=== PATIENT | male | born 1945 | race Caucasian/White ===

== ENCOUNTER 2018-01-29 09:45 | Outpatient (REF) | payer OTHER, SELFPAY ==
[2018-01-29 14:29] LABS: Anion Gap 8.3 mmol/L (3-11); BUN 15 mg/dL (7-18); CO2 28.7 mmol/L (21.0-32.0); CREATININE 0.77 mg/dL (0.70-1.30); Calcium 8.6 mg/dL (8.5-10.1); Chloride 103 mmol/L (98-107); Cholesterol 204 mg/dL (50-200); Glucose 95 mg/dL (70-100); HDL Cholesterol 116 mg/dL (40-60); LDL CHOLESTEROL 83 mg/dL (<100); Potassium 4.1 mmol/L (3.5-5.1); Sodium 140 mmol/L (136-145); Triglyceride 25 mg/dL (30-150)
[2018-01-30 09:40] LABS: PSA, Screening 2.9 ng/ml (0-6.5)
[2018-01-30 12:26] LABS: Varicella IgG Antibody Positive
[2018-02-01 13:47] LABS: HSV Type 1 Ab, IgG Positive; HSV Type 2 Ab, IgG Negative
== END 2018-01-29 10:05 ==
LOC: NCHCN 09:45
PROVIDERS: PCP Nurse Practitioner Family; Visit Provider Nurse Practitioner Family
DX: I10 Essential (primary) hypertension (principal); E78.5 Hyperlipidemia, unspecified; Z12.5 Encounter for screening for malignant neoplasm of prostate; Z80.42 Family history of malignant neoplasm of prostate; Z11.59 Encounter for screening for other viral diseases
CPT/HCPCS: 80048; 80061; 83721; 84153; 86787; 86695; 86696

== ENCOUNTER 2018-11-25 12:10 | Outpatient (REF) | payer OTHER, SELFPAY ==
--- NOTE | 2018-11-25 | SKI_PTH ---
PATIENT: Alpesh Clay JR LOC: [facility] U#:[id number] AGE/SX: 73/M ROOM: RE11/25/[address]: Kalyan Espinosa DO : 1945 BED: DIS: 11/25/2018 SPEC #: [id number] RECD: 11/26/18 11:48 STATUS: FRAN REQ #: [id number] AISHA: 11/25/18 00:[address]: Kalyan Espinosa DEPT: Surgical Specimen RECD BY: Diandra De La Garza ENTERED: 11/26/18 11:49 SP TYPE: OBIE MCCULLOUGH DR: Dannielle Lee Tissues: 1 - SKIN BIOPSY(SHAVE/PUNCH) Procedures: SKIN LEVEL 4 Comments: [id number]
== END 2018-11-25 12:30 ==
LOC: LBN 12:10
PROVIDERS: PCP Nurse Practitioner Family; Visit Provider Otolaryngology Otolaryngology/Facial Plastic Surgery
DX: L82.0 Inflamed seborrheic keratosis (principal)
CPT/HCPCS: 88305

== ENCOUNTER 2018-12-02 08:16 | Outpatient (REF) | payer OTHER, SELFPAY ==
[2018-12-03 09:40] LABS: PSA, Screening 1.5 ng/ml (0-6.5)
== END 2018-12-02 08:36 ==
LOC: NCHCN 08:16
PROVIDERS: PCP Nurse Practitioner Family; Visit Provider Nurse Practitioner Family
DX: Z12.5 Encounter for screening for malignant neoplasm of prostate (principal); L64.9 Androgenic alopecia, unspecified
CPT/HCPCS: 84153

== ENCOUNTER 2019-03-03 11:08 | Outpatient (REF) | payer OTHER, SELFPAY ==
[2019-03-03 18:57] LABS: Anion Gap 8.8 mmol/L (3-11); BUN 15 mg/dL (7-18); CO2 29.2 mmol/L (21.0-32.0); CREATININE 0.83 mg/dL (0.70-1.30); Calcium 8.9 mg/dL (8.5-10.1); Chloride 102 mmol/L (98-107); Glucose 85 mg/dL (70-100); Potassium 4.2 mmol/L (3.5-5.1); Sodium 140 mmol/L (136-145)
== END 2019-03-03 11:28 ==
LOC: NCHCO 11:08
PROVIDERS: PCP Nurse Practitioner Family; Visit Provider Nurse Practitioner Family
DX: I10 Essential (primary) hypertension (principal)
CPT/HCPCS: 80048

== ENCOUNTER 2021-08-11 18:15 | Outpatient (REF) | payer OTHER, SELFPAY ==
[2021-08-11 19:21] LABS: HCT 45.1 % (40.0-50.0); MCH 38.3 pg (27.0-33.0); MCHC 35.5 % (32.0-36.0); MCV 107.9 fL (80-95); MPV 9.1 fL (8.0-11.0); Platelet Count 158 10^3/uL (130-400); RBC 4.18 10^6/uL (4.36-5.78); RDW 13.5 % (11.8-14.1); RDW-SD 53.1 fL
[2021-08-11 19:37] LABS: ALT 82 U/L (16-63); AST 66 U/L (15-37); Albumin 4.2 g/dL (3.4-5.0); Alkaline Phosphatase 80 U/L (46-116); Anion Gap 10.3 mmol/L (3-11); BUN 16 mg/dL (7-18); Bilirubin, Total 0.9 mg/dL (0.2-1.0); CO2 27.7 mmol/L (21.0-32.0); CREATININE 0.9 mg/dL (0.70-1.30); Calculated LDL 112 mg/dL (<100); Chloride 102 mmol/L (98-107); Cholesterol 222 mg/dL (<200); Glucose 101 mg/dL (74-106); HDL Cholesterol 98 mg/dL (40-60); Potassium 3.8 mmol/L (3.5-5.1); Sodium 140 mmol/L (136-145); Total Protein 7.8 g/dL (6.4-8.2); Triglyceride 60 mg/dL (<150)
[2021-08-12 18:58] LABS: PSA, Screening 0.8 ng/mL (0.0-6.5)
== END 2021-08-11 18:16 | disposition home or self-care (01) ==
LOC: NCHCN 18:15
PROVIDERS: PCP Nurse Practitioner Family; Visit Provider Nurse Practitioner Family
DX: I10 Essential (primary) hypertension (principal); Z12.5 Encounter for screening for malignant neoplasm of prostate
CPT/HCPCS: 80053; 80061; 84153; 85027

== ENCOUNTER 2022-01-02 21:36 | Emergency (ER) | payer OTHER, SELFPAY ==
[2022-01-02 21:37] VITALS: BP 163/98; PULSE 72; RESP 18; TEMP 36.7; O2SAT 91
[2022-01-02] MEDS: Normal Saline 1,000 ML 1000 ML IV (22:01)
[2022-01-02 22:03] LABS: Source Nasal/Nares
[2022-01-02 22:08] LABS: Abs Immature Grans 0.01 10^3/uL (0.0-0.06); Absolute Basophil Count 0.08 10^3/uL (0.0-0.2); Absolute Eosinophil Count 0.46 10^3/uL (0.0-0.7); Absolute Lymphocyte Count 1.14 10^3/uL (1.2-3.4); Absolute Monocyte Count 0.74 10^3/uL (0.1-0.8); Absolute Neutrophil Count 3.98 10^3/uL (1.2-6.7); Basophils % 1.2; Eosinophils % 7.2; HCT 43.8 % (40.0-50.0); HGB 15.4 g/dL (13.5-17.5); Immature Grans % 0.2; Lymphocytes % 17.8; MCHC 35.2 % (32.0-36.0); MCV 105 fL (80-95); MPV 8.6 fL (8.0-11.0); Monocytes % 11.5; Neutrophils % 62.1; Platelet Count 215 10^3/uL (130-400); RBC 4.16 10^6/uL (4.36-5.78); RDW 14.1 % (11.8-14.1); RDW-SD 54.8 fL; WBC 6.41 10^3/uL (4.4-10.8)
--- NOTE | 2022-01-02 22:15 | W.ED.GENAD ---
Discharge Plan Disposition Patient Disposition: STILL A PATIENT Condition: Stable Discharge Details Clinical Impression: Diarrhea Primary Care Provider: Dannielle Lee ED Provider: Kevin Pham Home Meds and New Rx's Prescriptions: Continued finasteride [Propecia] 1 mg tablet 1 mg PO DAILY lisinopril 20 mg tablet 40 mg PO DAILY clonazepam [Klonopin] 0.5 mg tablet 0.5 mg PO DAILY labetalol 100 mg tablet 100 mg PO BID sildenafil [Viagra] 100 mg tablet 100 mg PO DAILY PRN Rx Instructions: administer 30 minutes to 4 hours before activity amlodipine 5 mg tablet 5 tab PO DAILY Label Comments: TAKE 1 TABLET BY MOUTH EVERY DAY Discharge Instructions Instructions: Acute Diarrhea (ED) Additional Instructions: Please follow-up for outpatient lower extremity ultrasound tomorrow. See enclosed paperword if diarrhea continues follow up with your primary care provider return to the emergency department for severe pain, difficulty breathing or if you feel more ill Medical Decision Making <Ever Stanton MD - Last Filed: 01/02/22 22:47> 76-year-old male states he woke this morning feeling normal, ate breakfast and then developed fairly rapid onset of loose and watery stool associate with bowel cramping. He went on to work outside in the 90 degree heat of the day. This evening he had recurrent urge to defecate and had recurrent large-volume watery diarrhea. With this he felt weak, became diaphoretic, and EMS was called. There was no syncope, no chest pain and patient denies abdominal pain or fever. He arrives to the ER improved. He has initial nurse that was 91% on room air which corrects to 93 to 94% with deep breathing. He has no cough or respiratory history. Patient was interviewed independently and with the significant other after asking the patient's permission. She states that he has had ongoing daily use of alcohol and poor compliance with his medications. Additionally they note the left leg has been edematous over 2 months since a long trip to [facility] [place] [employer] expedition Differential diagnosis includes volume depletion, gastroenteritis, viral syndrome including COVID-19, & must exclude other process such as diverticulitis. Patient IV access established, screening labs obtained and he is given parenteral fluids. Patient referred for CT imaging. He has had some mild hypoxia as stated above and will include chest images. Given the patient's complaint of left lower extremity edema that began after driving to call back for a fishing trip, will obtain outpatient follow-up ultrasound to rule out DVT. Patient to be signed out to Dr. Pham pending further diagnostics. Lab Data Lab results reviewed: Yes I reviewed the patient's lab results. Lab results narrative: Laboratory Results - last 24 hr 01/02/22 01/02/22 01/02/22 21:55 21:55 21:55 WBC 6.41 RBC 4.16 L Hgb 15.4 Hct 43.8 MCV 105 H MCH 37.0 H MCHC 35.2 RDW 14.1 Plt Count 215 MPV 8.6 Immature Gran % 0.2 Neutrophils % 62.1 Lymphocytes % 17.8 Monocytes % 11.5 Eosinophils % 7.2 Basophils % 1.2 Nucleated RBC % 0.0 Absolute Neutrophils 3.98 Absolute Lymphocytes 1.14 L Absolute Monocytes 0.74 Absolute Eosinophils 0.46 Absolute Basophils 0.08 Sodium 138 Potassium 3.4 L Chloride 102 Carbon Dioxide 24.5 Anion Gap 11.5 H BUN 12 Creatinine 0.8 Estimated GFR/1.73 m2 >= 60.00 Glucose 98 Calcium 8.9 Magnesium 1.8 Total Bilirubin 0.7 AST 49 H ALT 52 Alkaline Phosphatase 85 Total Protein 7.9 Albumin 3.8 COVID-19 Source Nasal/Nares SARS-CoV-2 (PCR) Negative <Kevin Pham MD - Last Filed: 01/03/22 00:53> 76-year-old male states he woke this morning feeling normal, ate breakfast and then developed fairly rapid onset of loose and watery stool associate with bowel cramping. He went on to work outside in the 90 degree heat of the day. This evening he had recurrent urge to defecate and had recurrent large-volume watery diarrhea. With this he felt weak, became diaphoretic, and EMS was called. There was no syncope, no chest pain and patient denies abdominal pain or fever. He arrives to the ER improved. He has initial nurse that was 91% on room air which corrects to 93 to 94% with deep breathing. He has no cough or respiratory history. Patient was interviewed independently and with the significant other after asking the patient's permission. She states that he has had ongoing daily use of alcohol and poor compliance with his medications. Additionally they note the left leg has been edematous over 2 months since a long trip to [facility] for fishing expedition Differential diagnosis includes volume depletion, gastroenteritis, viral syndrome including COVID-19, & must exclude other process such as diverticulitis. Patient IV access established, screening labs obtained and he is given parenteral fluids. Patient referred for CT imaging. He has had some mild hypoxia as stated above and will include chest images. Given the patient's complaint of left lower extremity edema that began after driving to call back for a fishing trip, will obtain outpatient follow-up ultrasound to rule out DVT. Patient to be signed out to Dr. Pham pending further diagnostics. pt stable, ct shows subacute left rib fracture and states he did have a mechanical fall from standing over a week ago, no recent trauma, no ptx. Has atelectasis, denies any fever or cough so doubt pneumonia. CT abd/pelvis unremarkable, has thickened bladder wall but denies urinary symptoms. He feels well and is 95% on room air when talking to him and speaking in full sentences. Suspect his diarrhea is food related or viral in nature and caused some dehydration vs vasovagal episode. He will f/u with his pcp and also have an u/s of his left leg which has mild swelling of the lower leg, no erythema or infectious findings on exam. Return precautions given Imaging Data Radiologic Study: Attestation: I personally reviewed and interpreted this imaging study as follows: Imaging: CT Scan Radiologist's impression: IMPRESSION: 1. Mild displaced acute-subacute left 11th and 12th rib fractures. No pneumothorax 2. Probable mild atelectasis in the lower lobes, right greater than left, small infiltrates not excluded. IMPRESSION: 1. Mild bladder wall thickening without stranding. Nonspecific, cystitis not excluded. 2. Otherwise, no acute abnormality HPI <Ever Stanton MD - Last Filed: 01/02/22 22:47> General Mode of arrival: EMS. Date/Time Provider Initiated Documentation: 01/02/22 22:15. Limitations to Documentation: no limitations. Information obtained by: patient and EMS. History of Present Illness 76 year old M presents to the emergency department with the chief complaint of Diarrhea today and lightheadedness at home, described as moderate, and is localized to the abdomen. Patient reports no radiation. Patient started experiencing this hour(s) and it has been intermittent. No relieving factors improve symptom(s), No exacerbating factors reported . Patient notes diaphoresis, loss of appetite and weakness; denies confusion, chest pain and syncope. Patient did receive the following treatments prior to arrival, none Related Data Home Medications Medication Instructions Recorded Confirmed clonazepam 0.5 mg tablet (Klonopin) 0.5 mg PO DAILY 06/23/21 finasteride 1 mg tablet (Propecia) 1 mg PO DAILY 06/23/21 01/02/22 labetalol 100 mg tablet 100 mg PO BID 06/23/21 lisinopril 20 mg tablet 40 mg PO DAILY 06/23/21 01/02/22 sildenafil 100 mg tablet (Viagra) 100 mg PO DAILY PRN 06/23/21 amlodipine 5 mg tablet 5 tab PO DAILY 01/02/22 01/02/22 Allergies Allergy/AdvReac Type Severity Reaction Status Date / Time No Known Allergies Allergy Verified 01/02/22 21:41 General Stated Complaint: Abd Prob SANTINO: 3 Review of Systems <Ever Stanton MD - Last Filed: 01/02/22 22:47> Narrative: No headache, chest pain, palpitations. No syncope. No abdominal pain or fever. 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 Pleasant, well groomed, interactive. HEAD: Normocephalic, atraumatic ENT: Mucous membranes moist, oropharynx unremarkable, External ear exam unremarkable EYES: PERRL, EOMI NECK: Full ROM, no LATRICIA, no menigismus CHEST/RESP: Nontender, clear to auscultation bilateral, no wheeze/rhonchi/rales CARDIOVASCULAR: RRR, no murmur, rub az. 2+ Rad pulse bilateral ABDOMEN: Soft, nontender, no mass. + Increased bowel sounds EXT: Full ROM, left lower extremity 1+ edema. Neuro: Grossly normal neurologic exam, conversant, interactive. Psych: Speech fluent, thoughts congruent, affect normal Course <Ever Stanton MD - Last Filed: 01/02/22 22:47> Vital Signs Vital signs: Vital Signs Temperature 36.7 C 01/02/22 21:37 Pulse 72 01/02/22 21:37 Respiratory Rate 18 01/02/22 21:37 Blood Pressure 163/98 H 01/02/22 21:37 Pulse Oximetry 91 L 01/02/22 21:37 Temperature 36.7 C 01/02/22 21:37 Temperature Source Oral 01/02/22 21:37 Pulse 72 01/02/22 21:37 Respiratory Rate 18 01/02/22 21:37 Respiratory Effort Non-Labored 01/02/22 21:43 Blood Pressure 163/98 H 01/02/22 21:37 Pulse Oximetry 91 L 01/02/22 21:37 Pain Level 0 01/02/22 21:37 Lab/Test Results Lab/Test Results: Laboratory Tests Range/Units 01/02/22 01/02/22 21:55 21:55 WBC (4.4-10.8) 10^3/uL 6.41 RBC (4.36-5.78) 10^6/uL 4.16 L Hgb (13.5-17.5) g/dL 15.4 Hct (40.0-50.0) % 43.8 MCV (80-95) fL 105 H MCH (27.0-33.0) pg 37.0 H MCHC (32.0-36.0) % 35.2 RDW (11.8-14.1) % 14.1 Plt Count (130-400) 10^3/uL 215 MPV (8.0-11.0) fL 8.6 Immature Gran % 0.2 Neutrophils % 62.1 Lymphocytes % 17.8 Monocytes % 11.5 Eosinophils % 7.2 Basophils % 1.2 Nucleated RBC % (0.0-0.3) % 0.0 Absolute Neutrophils (1.2-6.7) 10^3/uL 3.98 Absolute Lymphocytes (1.2-3.4) 10^3/uL 1.14 L Absolute Monocytes (0.1-0.8) 10^3/uL 0.74 Absolute Eosinophils (0.0-0.7) 10^3/uL 0.46 Absolute Basophils (0.0-0.2) 10^3/uL 0.08 COVID-19 Source Nasal/Nares Sign Out <Ever Stanton MD - Last Filed: 01/02/22 22:47> Sign Out Data: Sign Out Comment: follow up ct Last updated by Ever Stanton MD at 01/02/22 22:54 PAWSS <Ever Stanton MD - Last Filed: 01/02/22 22:47> Have you Been Recently Intoxicated or Drunk Within the Last 30 days?: No Have you Ever Experienced Previous Episodes of Alcohol Withdrawal?: No Have you ever Experienced Withdrawal Seizures?: No Have you ever Experienced Delirium Tremens(DT)s?: No Have you ever undergone Alcohol Rehabilitation Treatment (i.e, inpt ot outpatient treatment programs)?: No Have you ever Experienced Blackouts?: No Have you ever Combined Alcohol with other Downers within the last 90 days?: No Have you ever Combined Alcohol with any other Substance of Abuse during the last 90 days?: No Positive Blood Alcohol level on Presentation? [PCS.BAL]: No Evidence of Increased Autonomic Activity (i.e. HR>120, tremor, sweating, agitation, nausea)?: No Result: 0 <Kevin Pham MD - Last Filed: 01/03/22 00:53> Result: 0
[2022-01-02 22:23] LABS: ALT 52 U/L (16-63); AST 49 U/L (15-37); Albumin 3.8 g/dL (3.4-5.0); Alkaline Phosphatase 85 U/L (46-116); Anion Gap 11.5 mmol/L (3-11); BUN 12 mg/dL (7-18); Bilirubin, Total 0.7 mg/dL (0.2-1.0); CO2 24.5 mmol/L (21.0-32.0); CREATININE 0.8 mg/dL (0.70-1.30); Calcium 8.9 mg/dL (8.5-10.1); Chloride 102 mmol/L (98-107); Glucose 98 mg/dL (74-106); Magnesium 1.8 mg/dL (1.8-2.4); Potassium 3.4 mmol/L (3.5-5.1); Sodium 138 mmol/L (136-145); Total Protein 7.9 g/dL (6.4-8.2)
--- NOTE | 2022-01-02 22:30 | DI.CT_ITS ---
Exam(s) CT CHEST PE ABD PELVIS W EXAM: CT CHEST PE ABD PELVIS W CLINICAL HISTORY: Lower abd pain, diarrhea. Unexplained mild hypoxia. TECHNIQUE: Imaging Protocol: Axial computed tomography images with coronal and sagittal reformatted images were created and reviewed CONTRAST MATERIAL: Intravenous: Omnipaque 350 Contrast volume:100 ml Oral: / no COMPARISON: CR CHEST 2 VIEWS PA,LAT from 05/29/2017 FINDINGS: CHEST: Tracheobronchial tree: Patent where visualized. Mediastinum and Irma: No dominant adenopathy or fluid collection. Pulmonary parenchyma: Dependent changes. Mild respiratory motion. No consolidation or dominant reji urable mass. Pleura: No effusion or pneumothorax. Lymph nodes: Within normal limits. Aorta: Thoracic portion non-dilated. Heart: Mildly enlarged. Coronary artery calcifications are present. No pericardial effusion. Bones: Subacute fractures left 11th and 12th ribs. Spine unremarkable for age. No lytic or blastic lesions. ABDOMEN: Liver: Normal density. No measurable mass. Gallbladder and biliary tract: No radiodense calculus or dilation. Pancreas: Normal density, no abnormal calcifications or inflammatory process. Spleen: Normal. Kidneys: Normal size, contour and axis. No radiodense stones or obstructive uropathy. Few small deya l cysts are noted. No masses seen. Adrenal glands: No masses seen. Aorta: Abdominal portion non-dilated. Mild atherosclerotic changes. Lymph nodes: Within normal limits. Soft tissues: Unremarkable. PELVIS: Bladder: Symmetric distention, [id number] gross wall thickening. Bowel: no obstruction or bowel wall thickening. Colon nearly completely collapsed. No inflammatory c hanges Peritoneal cavity: No ascites, collection or mesenteric inflammatory response. Bones: Right hip prosthesis creates mild artifact. Degenerative disc changes greatest at L5-S1. Reproductive organs: Within normal limits. Soft tissues: Fatty containing right inguinal hernia. IMPRESSION: No acute abnormality in the chest abdomen or pelvis.. Mild diffuse thickening of the wall of the urinary bladder is noted which could indicate cystitis. T he prostate appears normal in size. RADIATION DOSE DELIVERED: 1,499.88mGy.cm Total DLP DATA REPOSITORY: All CT scans at this facility are submitted to the National Radiology Data Registry (NRDR) Dose Index Registry (DIR) with the [employer] (ACR). RADIATION OPTIMIZATION: All CT scans at this facility use at least one of these dose optimization te chniques: automated exposure control; mA and/or kV adjustment per patient size (includes targeted exa ms where dose is matched to clinical indication); or iterative reconstruction.
[2022-01-02 22:39] LABS: COVID-19 PCR Negative (Negative)
[2022-01-02] MEDS: Omnipaque 350 MG/ML 100 ML BTL IJ (23:04)
[2022-01-02] MEDS: Normal Saline Flush 10 ML SYR IVP (23:04)
--- NOTE | 2022-01-03 00:36 | NUR.NOTE ---
Ultrasound req faxed to radiology for L LE ultrasound, left lower extremity edema. Patient given a copy of requistion and advised to call the number highlighted to make an appointment.Nursing Note:
--- NOTE | 2022-01-03 00:39 | DI.VRAD_ITS ---
PROCEDURE INFORMATION: Exam: CTA Chest With Contrast Exam date and time: 01/02/2022 11:04 PM Age: 76 years old Clinical indication: Prior surgery; Surgery date: 6+ months; Surgery type: Hip; Patient HX: Lower abd pain, diarrhea. Unexplained mild hypoxia TECHNIQUE: Imaging protocol: Computed tomographic angiography of the chest with contrast. 3D rendering (Not supervised by radiologist): MIP and/or 3D reconstructed images were created by the technologist. Radiation optimization: All CT scans at this facility use at least one of these dose optimization techniques: automated exposure control; mA and/or kV adjustment per patient size (includes targeted exams where dose is matched to clinical indication); or iterative reconstruction. Contrast material: OMNIPAQUE 350; Contrast volume: 100 ml; Contrast route: INTRAVENOUS (IV); COMPARISON: CR CHEST 2 VIEWS PA,LAT 05/29/2017 10:52 AM FINDINGS: Pulmonary arteries: No pulmonary emboli. Aorta: No aortic dissection. Lungs: Probable mild atelectasis in the lower lobes, right greater than left, small infiltrates not excluded. Pleural spaces: No pneumothorax. No pleural effusion. Heart: No pericardial effusion. Lymph nodes: No enlarged lymph nodes. Bones/joints: Mild displaced acute-subacute left 11th and 12th rib fractures. Soft tissues: Unremarkable. IMPRESSION: 1. Mild displaced acute-subacute left 11th and 12th rib fractures. No pneumothorax 2. Probable mild atelectasis in the lower lobes, right greater than left, small infiltrates not excluded. PROCEDURE INFORMATION: Exam: CT Abdomen And Pelvis With Contrast Exam date and time: 01/02/2022 11:04 PM Age: 76 years old Clinical indication: Prior surgery; Surgery date: 6+ months; Surgery type: Hip; Patient HX: Lower abd pain, diarrhea. Unexplained mild hypoxia TECHNIQUE: Imaging protocol: Computed tomography of the abdomen and pelvis with contrast. Radiation optimization: All CT scans at this facility use at least one of these dose optimization techniques: automated exposure control; mA and/or kV adjustment per patient size (includes targeted exams where dose is matched to clinical indication); or iterative reconstruction. Contrast material: OMNIPAQUE 350; Contrast volume: 100 ml; Contrast route: INTRAVENOUS (IV); COMPARISON: No relevant prior studies available. FINDINGS: Liver: No acute abnormality. Gallbladder and bile ducts: No stones. No ductal dilation. Pancreas: No ductal dilation. Spleen: No acute abnormality. Adrenal glands: Normal. No mass. Kidneys and ureters: No hydronephrosis. Renal cysts measuring up to 2 cm. Stomach and bowel: No bowel obstruction. Appendix: No evidence of appendicitis. Intraperitoneal space: No free air. No significant fluid collection. Vasculature: No abdominal aortic aneurysm. Vascular calcification Lymph nodes: No enlarged lymph nodes. Urinary bladder: Mild bladder wall thickening without stranding. Reproductive: No acute findings. Bones/joints: No acute fracture in the abdomen and pelvis. Right hip arthroplasty Soft tissues: No acute findings. IMPRESSION: 1. Mild bladder wall thickening without stranding. Nonspecific, cystitis not excluded. 2. Otherwise, no acute abnormality Dictated and Authenticated by: Alpesh Haywood MD. Ordering:TIO Curtis MD
[2022-01-03 01:13] VITALS: BP 162/92; PULSE 79; RESP 18; O2SAT 95
== END 2022-01-03 01:16 | disposition still patient (30) ==
PROVIDERS: Emergency Medicine; Emergency Provider Emergency Medicine; PCP Nurse Practitioner Family
DX: R19.7 Diarrhea, unspecified (principal); R09.02 Hypoxemia; I10 Essential (primary) hypertension; R60.0 Localized edema; S22.42XA Multiple fractures of ribs, left side, initial encounter for closed fracture; Z20.822 Contact with and (suspected) exposure to COVID-19; W19.XXXA Unspecified fall, initial encounter
CPT/HCPCS: 71275; 74177; 80053; 87635; 96360; 99284; 99285; 83735; 85025; J3490

== ENCOUNTER → 2022-01-05 00:41 | Outpatient (CLI) | payer OTHER, SELFPAY ==
--- NOTE | 2022-01-05 | DI.US_ITS ---
Exam(s) US LOWER EXTREMITY VENOUS LT EXAM: US LOWER EXTREMITY VENOUS LT CLINICAL HISTORY: EDEMA, ? DVT, R60.9 TECHNIQUE: Grayscale, color, and doppler imaging of the deep venous system of the left lower extremi ty was performed. COMPARISON: No exams were available for comparison FINDINGS: There is no evidence of intraluminal thrombus and there is normal compression and augmentation demons trated within the common femoral vein, femoral vein, and popliteal vein. In the ipsilateral calf the interrogated veins also exhibit normal compression/ augmentation properti es. The ipsilateral saphenofemoral junction is patent. IMPRESSION: 1. No evidence of DVT in the left lower extremity. DATA REPOSITORY:
== END ==
PROVIDERS: PCP Nurse Practitioner Family; Visit Provider Emergency Medicine
DX: R60.9 Edema, unspecified (principal)
CPT/HCPCS: 93971

== ENCOUNTER → 2022-03-30 10:46 | Outpatient (BNVA) | payer OTHER, SELFPAY | PROVIDERS: PCP Nurse Practitioner Family; Referring Provider Nurse Practitioner Family; Visit Provider Surgery | DX: Z12.11 Encounter for screening for malignant neoplasm of colon (principal); R01.1 Cardiac murmur, unspecified | CPT/HCPCS: 99243 ==

== ENCOUNTER 2022-05-23 01:52 | Outpatient (CLI) | payer OTHER, SELFPAY ==
--- NOTE | 2022-05-23 07:00 | DI.US_ITS ---
APPROVED REPORT EXAM: Comprehensive 2D, Doppler, and color-flow Echocardiogram Patient Location: [facility] Last Maker: Ce Shipley RDCS (AE) Indications: Heart murmur, Vasovagal episode, HTN Pre op Other Information Study Quality: Adequate Conclusion Normal left ventricular wall thickness and chamber size. Estimated ejection fraction is 60 to 65%. Wall motion is normal Normal right ventricular size and systolic function Both atria are normal in size Aortic valve is trileaflet and mildly calcified. There is no aortic stenosis. There is trace regurg itation Structurally normal mitral valve with mild to moderate regurgitation Normal tricuspid valve with trace regurgitation. Estimated right ventricular systolic pressure is 16 mmHg Dilated ascending aorta measuring 3.97 cm Wall motion Left Ventricle The left ventricle is normal size. The left ventricular systolic function is normal. The left ventric ular ejection fraction is within the normal range. There is normal left ventricular wall thickness. T here is normal LV segmental wall motion. There is no ventricular septal defect visualized. LVEF is 63 %. Right Ventricle The right ventricle is normal size. The right ventricular systolic function is normal. The RVSP is 15 .9mmHg. Atria The left atrium size is normal. The right atrium size is normal. The interatrial septum is intact wit h no evidence for an atrial septal defect. Aortic Valve Aortic valve is mildly calcified. Aortic valve is trileaflet. There is no aortic valvular stenosis. Trace aortic regurgitation. Mitral Valve The mitral valve is normal in structure. No evidence of mitral valve stenosis. Mild to moderate berenice l regurgitation. Tricuspid Valve The tricuspid valve is normal in structure. There is no tricuspid valve stenosis. Trace tricuspid reg urgitation. Pulmonic Valve The pulmonary valve is normal in structure. There is no pulmonic valvular stenosis. Trace pulmonic re gurgitation. Great Vessels The aortic root is normal in size. The ascending aorta is moderately dilated.3.97 cm Aortic arch is n ormal in caliber. IVC is normal in size and collapses >50% with inspiration. Pericardium There is no pericardial effusion. 2D Dimensions IVSD d PLAX 1.13 cm M: 0.6-1.2 LV Vol A2C d MOD 95.0 mL LVPW d PLAX 1.14 cm M: 0.6 - 1.2 LV Vol A4C d MOD 119.1 mL LVID d PLAX 4.51 cm M: 4.2 - 5.8 LA vol/ BSA A2C s A-L 24.8 mL/m2 LVDs 3.10 cm M: 2.5 - 4.0 LA vol/ BSA A4C s A-L 18.6 mL/m2 Ao Root d 3.04 cm M: 3.1 - 3.7 LA Vol/ BSA Biplane s A-L 22.4 mL/m2 RA Area A4C 13.96 cm2 LA Area A4C s MOD 15.29 cm2 RA Vol/ BSA A4C s A-L 15.9 mL/m2 LA Area A2C s MOD 18.38 cm2 Ao Asc Diam d 3.97 cm M: 2.6 - 3.4 LV EF A4C MOD 62.7 % LV EF Teichholz 58.2 % LV EF A2C MOD 63.0 % LVEF (Ignacio's) 63.61 % M: 52 - 72 LV EF Biplane MOD 63.6 % LV Volume 80.92 mL M: 62 - 150 SV 69.12 mL LV Volume Index 39.47 mL/m2 M: 34 - 74 SV Index 33.83 mL/m2 LV Vol Biplane MOD 108.7 mL FS 30.55 % M-Mode TAPSE 2.47 cm (M/F) >1.7 LV Diastology MV E' medial 0.081 (>0.07 m/s) E/A Ratio 0.8 LV E/e MED 7.40 (<14) MV E Vmax 0.60 (0.4-1.3 m/s) MV E' lateral 0.120 (>0.1 m/s) MV A Vmax 0.75 (0.4-1.3 m/s) LV E/e LAT 4.95 (<14) MV E/A Ratio 0.75 MV E/E' medial 7.41 MV E/E' lateral 4.99 Aortic Valve LVOT Area 3.06 cm2 AoV Area Vmax 2.75 cm2 LVOT Vmax 1.33 m/s AoV Area/ BSA (Vmax) 1.34 cm2/m2 LVOT Mean Daryl. 0.84 m/s JONATHAN Mean Daryl. 2.54 cm2 LVOT Peak Grad 7.1 mmHg JONATHAN Mean Daryl. Index 1.24 cm2/m2 LVOT Mean Grad 3.4 mmHg LVOT VTI 0.229 m LVOT Diam s 1.95 cm AoV Vmax 1.48 m/s Velocity Ratio 0.90 AoV Mean Daryl. 1.01 m/s AoV Peak Grad 8.7 mmHg LVOT SV 69.86 mL AoV Mean Grad 4.5 mmHg AoV VTI 0.252 m AoV Area VTI 2.77 cm2 AoV Area/ BSA (VTI) 1.36 cm/m2 Mitral Valve MV DT 250 (160-240 msec) MR Vmax 5.21 m/s MV PHT 73 msec MR VTI 1.220 m MV Area PHT 3.03 cm2 MR Peak Grad 108.8 mmHg MV VTI 0.205 m MR Mean Grad 79.5 mmHg MV VTI Annulus 0.191 m MV Area VTI 3.19 (4.0-6.0 cm2) Pulmonary Valve PV Vmax 1.16 (0.5-1.5 m/s) RVOT Peak Gr. 1.48 mmHg PV Peak Grad 5.4 mmHg RVOT Mean Gr. 0.80 mmHg PV Mean Grad 2.7 mmHg RVOT VTI 0.130 m PV VTI 0.206 m RVOT Vmax 0.61 m/s Tricuspid Valve TR Peak Grad 12.9 mmHg TR Vmax 1.80 m/s RA Pressure 3.00 mmHg RVSP (TR) 15.9 mmHg
== END 2022-05-23 02:12 ==
LOC: DI 01:53
PROVIDERS: PCP Nurse Practitioner Family; Visit Provider Surgery
DX: E78.5 Hyperlipidemia, unspecified (principal); I10 Essential (primary) hypertension; R01.1 Cardiac murmur, unspecified; R55 Syncope and collapse; R79.89 Other specified abnormal findings of blood chemistry
CPT/HCPCS: 93306

== ENCOUNTER 2022-07-07 12:54 | Outpatient (REF) | payer OTHER, SELFPAY ==
[2022-07-07 15:29] LABS: Abs Immature Grans 0.03 10^3/uL (0.0-0.06); Absolute Basophil Count 0.04 10^3/uL (0.0-0.2); Absolute Eosinophil Count 0.15 10^3/uL (0.0-0.7); Absolute Lymphocyte Count 0.77 10^3/uL (1.2-3.4); Absolute Monocyte Count 0.78 10^3/uL (0.1-0.8); Absolute Neutrophil Count 4.17 10^3/uL (1.2-6.7); Basophils % 0.7; Eosinophils % 2.5; HCT 39.8 % (40.0-50.0); HGB 14.6 g/dL (13.5-17.5); Immature Grans % 0.5; MCH 37.4 pg (27.0-33.0); MCHC 36.7 % (32.0-36.0); MCV 102 fL (80-95); Monocytes % 13.1; Neutrophils % 70.2; Platelet Count 208 10^3/uL (130-400); RDW 12.9 % (11.8-14.1); RDW-SD 48.2 fL; WBC 5.94 10^3/uL (4.4-10.8)
[2022-07-07 15:44] LABS: ALT 91 U/L (16-63); AST 88 U/L (15-37); Albumin 3.7 g/dL (3.4-5.0); Alkaline Phosphatase 98 U/L (46-116); Anion Gap 10.6 mmol/L (3-11); BUN 10 mg/dL (7-18); Bilirubin, Total 0.8 mg/dL (0.2-1.0); CO2 25.4 mmol/L (21.0-32.0); CREATININE 1.2 mg/dL (0.70-1.30); Chloride 91 mmol/L (98-107); Estimated GFR 62.67 (mL/min/1.73m2); Glucose 92 mg/dL (74-106); Potassium 4.9 mmol/L (3.5-5.1); Sodium 127 mmol/L (136-145); Total Protein 7.4 g/dL (6.4-8.2)
== END 2022-07-07 12:55 | disposition home or self-care (01) ==
LOC: NCHCN 12:54
PROVIDERS: PCP Nurse Practitioner Family; Visit Provider Nurse Practitioner Family
DX: R53.83 Other fatigue (principal); R79.89 Other specified abnormal findings of blood chemistry; K52.9 Noninfective gastroenteritis and colitis, unspecified
CPT/HCPCS: 80053; 85025

== ENCOUNTER 2022-07-11 02:38 | Inpatient (IN) | payer OTHER, SELFPAY ==
[2022-07-11] VITALS (74 sets, daily range): BP systolic 92–131; BP diastolic 58–114; PULSE 69–99; RESP 13–24; TEMP 36.4; O2SAT 90–96
--- NOTE | 2022-07-11 | DI.US_ITS ---
Exam(s) US ABDOMEN LIMITED EXAM: US ABDOMEN LIMITED CLINICAL HISTORY: distended gallbladder on CT TECHNIQUE: Ultrasound abdomen performed using standard protocol. COMPARISON: CT CT CHEST PE ABD PELVIS W from 07/11/2022 FINDINGS: There is no ascites evident. LIVER: Liver is hyperechoic indicating steatosis. Liver size is slightly prominent. No discrete foc al hepatic lesions identified. GALLBLADDER/BILIARY: There are no gallstones. No gallbladder wall edema nor pericholecystic fluid. The common hepatic duct isnot dilated, measuring 4-5mm at the level of jamie hepatis. PANCREAS: There is no evidence of pancreatic mass nor dilatation of the pancreatic duct. RIGHT KIDNEY:No evidence of solid mass, calculus, nor hydronephrosis. Anterior cyst noted measuring 2 .7 x 2.4 cm. IMPRESSION: 1. No evidence of cholelithiasis nor dilatation of the biliary tree. 2. Hepatic steatosis. Correlation appropriate hepatic blood work recommended. 3. Benign right kidney cyst. No other significant focal right upper quadrant ultrasound findings and there is no ascites evident. DATA REPOSITORY:
--- NOTE | 2022-07-11 02:30 | RT.EKG_ITS ---
APPROVED REPORT Exam: Resting ECG Reason for Exam: gi bleed Patient Location: E HR:72 bpm ECG Measurements Heart Rate 72 AXIS UT 95 P 0 QRSd 88 QRS 26 QT 418 T 64 QTc 457 Conclusion Sinus rhythm...normal P axis, V-rate 60- 99 Nonspecific T abnormalities, anterior leads...T <-0.10mV, V2-V4
--- NOTE | 2022-07-11 02:45 | DI.CT_ITS ---
Exam(s) CT CHEST PE ABD PELVIS W EXAM: CT CHEST PE ABD PELVIS W CLINICAL HISTORY: hypoxia, epigastric pain. TECHNIQUE: Imaging Protocol: Axial CT angiography was performed with multi-slice acquisition and m ulti-planar and/or 3D reconstructions. CONTRAST MATERIAL: Intravenous: Omnipaque 350 Contrast volume:100 ml Oral: None COMPARISON: CT CT CHEST PE ABD PELVIS W from 01/02/2022 FINDINGS: CHEST: PULMONARY ARTERIES: There are no intra-arterial filling defects to suggest the presence of acute pulm onary emboli. LUNGS: Are increased dependent markings in the posterior aspect of both lung bases again noted and ag ain noted be more prominent on the right side and this extending up to involve the superior segment o f the right lower lobe. No associated pleural effusions. No distinct ominous pulmonary nodules evid ent.. No significant focal findings in trachea and mainstem bronchi. MEDIASTINUM: There is no hilar nor mediastinal adenopathy. Visualized thyroid unremarkable. CARDIAC: Heart size is upper normal. There is no pericardial effusion. There is no significant shif t of the interventricular septum.Caliber of the thoracic aorta is within normal limits. OSSEOUS: No significant osseous lesions.No fractures.. ABDOMEN: There is no ascites. LIVER: Liver is hypodense implying steatosis. Also mild paddle megaly. No discrete focal hepatic le sions evident. GALLBLADDER/BILIARY: No obvious acute gallbladder pathology. CBD is not dilated. PANCREAS: No evidence of pancreatic mass nor dilatation of the pancreatic duct. SPLEEN: Spleen is not enlarged. There are no intrasplenic lesions. Splenic and portal veins are toledo nt. ADRENALS: There are no significant adrenal masses. KIDNEYS:There is a benign cyst in the anterior cortex of the right kidney which measures 2.5 by 2.0 c m. There is a smaller cyst in the left kidney measuring 0.8 cm. No solid renal masses. No calculi. No hydronephrosis. No hydroureter. No obvious abnormality in the urinary bladder although it is p artially obscured by beam hardening artifact from right hip prosthesis.. ABDOMINAL AORTA: Abdominal aorta is not enlarged. LYMPH NODES: There is no retroperitoneal or para-aortic adenopathy. ABDOMINAL WALL/GI: Small fat only containing umbilical hernia. No bowel loops therein. Also fat con taining right inguinal hernia. No bowel loops therein. No bowel obstruction. PELVIS: LYMPH NODES: There is no intrapelvic nor inguinal adenopathy. GI: No evidence of appendicitis.No evidence of sigmoid diverticulitis. URINARY BLADDER: No obvious calculi nor masses but partially obscured by beam hardening artifact from hip prosthesis. REPRODUCTIVE: Prostate size upper normal. OSSEOUS: Right hip prosthesis. No osseous lesions. No acute fractures. Deformity peripheral aspect of right transverse process of L 3 appears developmental. Mild indentation of superior endplate of L1. No significant compression fracture. No osseous lesions evident. Chronic disc space narrowing L5-S1 level. IMPRESSION: 1. No evidence of acute pulmonary emboli nor pulmonary infarction. 2. Dependent increased markings in both lung bases, more so on the right side but exhibiting minimal change from December 2021. No associated pleural effusions. 3. Hepatic steatosis. Correlation with blood work recommended. Liver is also mildly enlarged. The re are no focal hepatic lesions evident. No dilatation of the biliary tree, both intra and extrahepa tic 3. Right fat only containing inguinal hernia. Small umbilical hernia also only containing fat. No b owel obstruction. 4. Right hip prosthesis. No fractures. No osseous lesions. RADIATION DOSE DELIVERED: 1,549.18mGy.cm Total DLP DATA REPOSITORY: All CT scans at this facility are submitted to the National Radiology Data Registry (NRDR) Dose Index Registry (DIR) with the [employer] ([employer]). RADIATION OPTIMIZATION: All CT scans at this facility use at least one of these dose optimization te chniques: automated exposure control; mA and/or kV adjustment per patient size (includes targeted exa ms where dose is matched to clinical indication); or iterative reconstruction.
--- NOTE | 2022-07-11 02:53 | ED.GENADUL_ITS ---
Discharge Plan Disposition Patient Disposition: Admit to [facility] Condition: Stable Discharge Details Clinical Impression: Acute upper GI bleed Primary Care Provider: Dannielle Lee ED Provider: Kevin Pham Home Meds and New Rx's Prescriptions: No Action lisinopril 20 mg tablet 40 mg PO DAILY amlodipine 5 mg tablet 5 tab PO DAILY Patient Comments: TAKE 1 TABLET BY MOUTH EVERY DAY Medical Decision Making 76 yo male with hx of chronic diarrhea, htn, who drinks 2-3 glasses of wine daily, comes in with n/v since 6pm intermittently and epigastric pain intermittently. He states the vomit did not have blood and looked like the soup he had ate. EMS reports that the vomit appeared to be coffee ground emesis. PT Denies chest pain or dyspnea. He arrives hemodynamically stable, caox4 in no distress. He has clear lungs, mild tenderness in the epigastric area no guarding or reboud and abdomen is nondistended. Given the epigastric pain and n/v will obtain ct chest to evaluate for possible boerhaave, and ct abdomen/pelvis to evaluate for cholecystitis vs pancreatitis and obtain cbc, cmp, lipase, ekg/tr oponin. His oxygen saturation on my exam is 92% and appears he has been 90-95% in the past. hemoglobin defreased to 12.7 from 14.6 just a few days ago, he did have one episode of vomiting that is dark red and coffee ground in appearance. CT shows atelectasis, ? aspiration vs infection, he has no cough fever or leukocytosis so do not feel abx indicated. Fatty liver on CT no other significant findings. Pt hemodynamically stable, will consult general surgery for endoscopy. Pt does now state about a month ago he starte d to have epigastric discomfort, and began taking approximately 8 aleve daily for the past month or so. Suspect he had gastritis and likely has an ulcer now from excessive nsaid use which is likely why his sodium is 125 as well spoke with Dr. Garcia who reviewed case and feels this can be managed here, requested sucralfate be given and hospitalist admission. PT stable and updated with the plan Differential Diagnosis Differential Diagnosis: gastritis, boeerhaves, pancreatitis Medical Records Medical records reviewed: Yes I reviewed the patient's medical records. Imaging Data Radiologic Study: Attestation: I personally reviewed and interpreted this imaging study as follows: Imaging: CT Scan Radiologist's impression: IMPRESSION: 1. No acute bowel pathology demonstrated. 2. Prominent diffuse fatty infiltration of the liver. Correlation with liver function testing recommended. 3. Prominent gallbladder distension. No calcified gallstones or biliary dilatation. IMPRESSION: Mild dependent bilateral pulmonary opacity. Atelectasis is suspected primarily. Superimposed aspiration or infection is not confidently excluded on the left. Clinical correlation is recommended. Lab Data Lab results reviewed: Yes I reviewed the patient's lab results. ECG Data Attestation: I personally reviewed and interpreted this ECG (s) as follows: Prior ECG tracings: available for review Interpretation: sinus rhythm, rate of 72, pr 95, no stemi HPI General Mode of arrival: EMS . Date/Time Provider Initiated Documentation: 07/11/22 02:45 . Limitations to Documentation: no limitations . Information obtained by: patient . History of Present Illness 76 year old M presents to the emergency department with the chief complaint of vomiting, described as moderate, Patient started experiencing this hour(s) (6) and it has been intermittent. No relieving factors improve symptom(s), No exacerbating factors reported . Patient notes denies chest pain. Patient did receive the following treatments prior to arrival, none Related Data Home Medications Medication Instructions Recorded Confirmed lisinopril 20 mg tablet 40 mg PO DAILY 06/23/21 07/11/22 amlodipine 5 mg tablet 5 tab PO DAILY 01/02/22 07/11/22 Allergies Allergy/AdvReac Type Severity Reaction Status Date / Time No Known Allergies Allergy Verified 07/11/22 02:53 General Stated Complaint: Abd Prob SANTINO: 3 Review of Systems All systems reviewed & are unremarkable except as noted in HPI and below Constitutional Constitutional: Denies chills, Denies fever(s) and Denies weakness Cardiovascular Cardiovascular: Denies chest pain and Denies dyspnea Respiratory Respiratory: Denies cough and Denies dyspnea Genitourinary Genitourinary: Denies dysuria Musculoskeletal Musculoskeletal: Denies joint swelling Integumentary/Breasts Skin/Breast: Denies rash Neurologic Neurologic: Denies weakness [facility] All Active Problems (Updated 07/11/22 @ 05:24 by Kevin Pham MD) Acute upper GI bleed (Acute) Ulcerative proctitis (Acute) Isolated episode in 2017 Heart murmur previously undiagnosed (Acute) Elevated LFTs (Acute) Vasovagal attack (Acute) Screening for colon cancer (Acute) Medical History Abnormal auditory perception Cerumen impaction Erectile dysfunction History of basal cell cancer History of skin cancer Hyperlipidemia Hypertension Inguinal hernia Keratosis, seborrheic 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 Exam Const General: no acute distress Orientation: alert HENMT Head: normal to inspection Ears: external ears normal General nose exam: external nose normal Mouth: moist mucous membranes Eyes General: appearance normal, both eyes and all related structures Neck Neck: normal visual inspection Resp Effort & Inspection: normal respiratory effort and able to speak in complete sentences Auscultation: clear to auscultation bilaterally Cardio Jugular venous pressure: no JVD Rate: regular rate Heart Sounds: no murmurs GI Palpation: soft and tender Skin General skin exam: no rashes or lesions noted Neuro General: patient alert and patient oriented x3 Extrem General: normal to inspection Psych Mental Status: mental status grossly normal Course Vital Signs Vital signs: Vital Signs Pulse 73 07/11/22 02:39 Blood Pressure 117/75 07/11/22 02:39 Pulse Oximetry 90 L 07/11/22 02:39 Pulse 73 07/11/22 02:39 Respiratory Effort Normal 07/11/22 02:45 Blood Pressure 117/75 07/11/22 02:39 Blood Pressure Position Sitting 07/11/22 02:39 Pulse Oximetry 90 L 07/11/22 02:39 Oxygen Delivery Method Room Air 07/11/22 02:39 Oxygen Flow Rate 0 07/11/22 02:39 Pain Level 3 07/11/22 02:45 Comment curernt headache and nausea 07/11/22 02:39
[2022-07-11 03:00] LABS: Source Nasal/Nares
[2022-07-11] MEDS: Ondansetron 4 MG/2 ML VIAL IVP (03:02)
[2022-07-11] MEDS: Pantoprazole 40 MG VIAL 80 MG IVP (03:02)
[2022-07-11 03:05] LABS: Lactate 2.1 mmol/L (0.6-1.4)
[2022-07-11] MEDS: Omnipaque 350 MG/ML 100 ML BTL IJ (03:11)
[2022-07-11] MEDS: Normal Saline - Diluent 50 ML VIAL IJ (03:11)
[2022-07-11] MEDS: Normal Saline Flush 10 ML SYR IVP (03:12)
[2022-07-11 03:16] LABS: PTT Activated 23.6 sec (21.5-31.9); Prothrombin Time 10.5 sec (9.3-11.0)
[2022-07-11 03:21] LABS: ALT 78 U/L (16-63); AST 54 U/L (15-37); Abs Immature Grans 0.11 10^3/uL (0.0-0.06); Absolute Basophil Count 0.03 10^3/uL (0.0-0.2); Absolute Eosinophil Count 0.03 10^3/uL (0.0-0.7); Absolute Lymphocyte Count 0.54 10^3/uL (1.2-3.4); Absolute Monocyte Count 0.84 10^3/uL (0.1-0.8); Absolute Neutrophil Count 5.24 10^3/uL (1.2-6.7); Albumin 3.1 g/dL (3.4-5.0); Alkaline Phosphatase 86 U/L (46-116); BUN 26 mg/dL (7-18); Basophils % 0.4; Bilirubin, Total 0.8 mg/dL (0.2-1.0); CREATININE 1.1 mg/dL (0.70-1.30); Calcium 8.4 mg/dL (8.5-10.1); Chloride 89 mmol/L (98-107); ETHANOL BLOOD 7.5 mg/dL (<10); Eosinophils % 0.4; Estimated GFR 69.57 (mL/min/1.73m2); Glucose 109 mg/dL (74-106); HCT 34.2 % (40.0-50.0); HGB 12.7 g/dL (13.5-17.5); Immature Grans % 1.6; MCH 37.5 pg (27.0-33.0); MCHC 37.1 % (32.0-36.0); MCV 101 fL (80-95); MPV 8.6 fL (8.0-11.0); Monocytes % 12.4; Neutrophils % 77.2; Platelet Count 211 10^3/uL (130-400); Potassium 4.5 mmol/L (3.5-5.1); RBC 3.39 10^6/uL (4.36-5.78); RDW 12.6 % (11.8-14.1); RDW-SD 46.9 fL; Sodium 125 mmol/L (136-145); Total Protein 6.4 g/dL (6.4-8.2); WBC 6.79 10^3/uL (4.4-10.8)
[2022-07-11 03:26] LABS: Bilirubin, Direct 0.4 mg/dL (0.0-0.2); Bilirubin, Total 0.8 mg/dL (0.2-1.0); Magnesium 1.6 mg/dL (1.8-2.4); Troponin I < 50 ng/L (<or=60)
[2022-07-11 03:32] LABS: COVID-19 PCR Negative (Negative)
[2022-07-11] MEDS: MAGNESIUM SULFATE 2 GM/50 ML BAG IVPB (03:45)
[2022-07-11] MEDS: Normal Saline 1,000 ML 1000 ML IV (03:47)
--- NOTE | 2022-07-11 04:40 | DI.VRAD_ITS ---
PROCEDURE INFORMATION: Exam: CTA Chest With Contrast Exam date and time: 07/11/2022 3:26 AM Age: 76 years old Clinical indication: Nausea and vomiting and other: Epigastric pain; Prior surgery; Surgery date: 6+ months; Surgery type: R hip; Patient HX: Hypoxia, epigastric pain TECHNIQUE: Imaging protocol: Computed tomographic angiography of the chest with contrast. 3D rendering (Not supervised by radiologist): MIP and/or 3D reconstructed images were created by the technologist. Radiation optimization: All CT scans at this facility use at least one of these dose optimization techniques: automated exposure control; mA and/or kV adjustment per patient size (includes targeted exams where dose is matched to clinical indication); or iterative reconstruction. Contrast material: OMNIPAQUE 350; Contrast volume: 100 ml; Contrast route: INTRAVENOUS (IV); COMPARISON: CT CHEST PE ABD PELVIS W 01/02/2022 11:04 PM FINDINGS: Pulmonary arteries: No pulmonary embolism identified. Aorta: No thoracic aortic aneurysm or dissection. Thyroid: Normal sized thyroid gland. Lungs: Mild bilateral dependent opacity. Otherwise, no pulmonary consolidation. Pleural spaces: No pleural effusion or pneumothorax. Heart: Normal sized heart. Lymph nodes: No pathologically enlarged mediastinal or hilar lymph nodes. Bones/joints: No acute fracture seen among the bones of the chest. Soft tissues: No gross soft tissue mass or fluid collection seen in the chest wall. IMPRESSION: Mild dependent bilateral pulmonary opacity. Atelectasis is suspected primarily. Superimposed aspiration or infection is not confidently excluded on the left. Clinical correlation is recommended. PROCEDURE INFORMATION: Exam: CT Abdomen And Pelvis With Contrast Exam date and time: 07/11/2022 3:26 AM Age: 76 years old Clinical indication: Nausea and vomiting and other: Epigastric pain; Prior surgery; Surgery date: 6+ months; Surgery type: R hip; Patient HX: Hypoxia, epigastric pain TECHNIQUE: Imaging protocol: Computed tomography of the abdomen and pelvis with contrast. Radiation optimization: All CT scans at this facility use at least one of these dose optimization techniques: automated exposure control; mA and/or kV adjustment per patient size (includes targeted exams where dose is matched to clinical indication); or iterative reconstruction. Contrast material: OMNIPAQUE 350; Contrast volume: 100 ml; Contrast route: INTRAVENOUS (IV); COMPARISON: CT CHEST PE ABD PELVIS W 01/02/2022 11:04 PM FINDINGS: Liver: Diffuse fatty infiltration of the liver. Gallbladder and bile ducts: Prominent gallbladder distension. No calcified gallstones or biliary dilatation. Pancreas: Normal appearing pancreas. Spleen: Normal appearing spleen. Adrenal glands: Normal appearing adrenal glands. Kidneys and ureters: 2.3 cm right renal cyst. Additional smaller hypoattenuating renal lesions, incompletely characterized but statistically most likely additional small cysts. No hydronephrosis. No obstructing ureteral stones. Stomach and bowel: No oral contrast. Stomach moderately distended with fluid. No small bowel dilatation to suggest obstruction. Colon largely well evacuated of fecal material. No evidence of diverticulitis or colitis. Appendix: Appendix not identified, obscured if present. Correlation with surgical history recommended. Intraperitoneal space: No gross ascites or free air. Vasculature: Normal caliber abdominal aorta. Lymph nodes: No pathologically enlarged mesenteric, retroperitoneal, or pelvic sidewall lymph nodes. Urinary bladder: Normal appearing urinary bladder. Reproductive: Normal-sized prostate gland. Seminal vesicles largely obscured and poorly evaluated but not grossly enlarged. Bones/joints: Prior right hip arthroplasty with streak artifact created by the metallic prosthesis partially obscuring the lower pelvis. Spinal degenerative change with mild discogenic degeneration at several levels. Soft tissues: Small fat containing ventral hernia at the umbilicus. Moderate-sized fat containing right inguinal region hernia. IMPRESSION: 1. No acute bowel pathology demonstrated. 2. Prominent diffuse fatty infiltration of the liver. Correlation with liver function testing recommended. 3. Prominent gallbladder distension. No calcified gallstones or biliary dilatation. Dictated and Authenticated by: Nir Leal MD. Ordering:WHITNEY Brown MD
--- NOTE | 2022-07-11 04:54 | NUR.NOTE ---
Nursing Note: At 4:45 am patient had large immeasurable reddish/brown emesis. MD aware and was able to visualize what emesis looked like. Patient cleaned up and VSS at this time
[2022-07-11 05:22] LABS: HCT 35.1 % (40.0-50.0); HGB 12.8 g/dL (13.5-17.5)
[2022-07-11] MEDS: Sucralfate 1 GM TAB PO ×3 (05:27→11:41)
[2022-07-11] MEDS: ACETAMINOPHEN 1,000 MG/100 ML BTL 400 MG IVPB (05:45)
--- NOTE | 2022-07-11 05:59 | W.PM.HP.N ---
Date of service: 07/11/22 Time of Service: 06:00 Assessment and Plan Assessment and plan (1) Acute upper GI bleed: Start date: 07/11/22 Status: Acute Assessment and plan: This is a 76-year-old gentleman who has had a month long history of epigastric discomfort now with hematemesis and at risk for gastric ulcer with NSAID use and alcohol intake daily. His hemoglobin has dropped 2 g/dL from 14-12 and presently after Carafate and IV Protonix he is not having abdominal discomfort and no nausea or vomiting. Abdominal CT did show dilated gallbladder but patient does not have any signs or symptoms of acute cholecystitis with negative Peters sign with ultrasound abdomen to be performed. His epigastric pain did not historically sound like gallbladder colic but was worsened with eating. He did have hematemesis hours prior to presentation. He is hemodynamically stable and asymptomatic. Surgery has been consulted and is planning EGD. Patient is NPO. He will continue on IV Protonix and oral Carafate. He is a full code. (2) Acute blood loss anemia: Start date: 07/11/22 Status: Acute Assessment and plan: Patient is n.p.o. and will have EGD with surgery. Aggressively treat possible gastric ulcer with IV Protonix and oral Carafate. Trend hemogram and transfuse if needed with patient type and crossed. (3) Elevated LFTs: Status: Chronic Assessment and plan: Patient most likely has hepatitis which appears chronic with chronic daily alcohol use. Trend labs and consider CIWA protocol if any signs or symptoms of withdrawal. Patient states he does not withdrawal from alcohol cessation. Patient should stop alcohol use. (4) Daily consumption of alcohol: Status: Chronic Assessment and plan: With sequela now of a gastric ulcer but also alcoholic hepatitis which appears chronic. Advised cessation. (5) Hypomagnesemia: Status: Chronic Assessment and plan: Most likely associated with alcohol use and malnourishment. Replete and trend lab. Advised alcohol cessation. Patient may need to be on chronic oral magnesium for chronic repletion. (6) Hyponatremia: Start date: 07/07/22 Status: Acute Assessment and plan: Patient had low sodium with recent lab and this persists with chronic alcohol use. It appears this has not been a chronic problem with through reviewing previous labs. Alcohol cessation and gentle IV hydration with normal saline during his hospital stay as we work-up his upper GI bleed. Long-term we should stop drinking alcohol. (7) Hypertension: Assessment and plan: Chronically on medical therapy with patient to hold this during this hospital stay with blood pressure low. Monitor and reinitiate therapy if needed before discharge. 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 He also was having epigastric discomfort which was worse whenever he ate even though he modified his diet to yogurt. He has been taking Aleve for this pain almost daily. He does drink wine daily. He began to have nausea with emesis and then hematemesis with dark blood and coffee-ground emesis hours prior to presentation. He did have a hemoglobin measured 2 days prior to presentation which was at 14 g/dL and this had dropped by 2 g/dL in the ED to 12. As stated he had been on NSAIDs with his epigastric pain and drinking alcohol. The patient was given Carafate and IV Protonix and felt that his epigastric pain was relieved at the time I saw him. He was having no bloating. He states he has never gone through alcohol withdrawal. Surgery was consulted and will be following up with possible EGD with patient to be hospitalized on hospital service with trending of lab. He presently is hemodynamically stable and comfortable. He has been typed and screened. Patient is a full code. Review of Systems Narrative: 13 point review of systems otherwise unrevealing or stable. PFSH All Active Problems (Updated 07/11/22 @ 08:21 by Shree Rojo) Hyponatremia (Acute) Hypomagnesemia (Chronic) Acute blood loss anemia (Acute) Daily consumption of alcohol (Chronic) Alcohol abuse, daily use (Acute) Acute upper GI bleed (Acute) Ulcerative proctitis (Acute) Isolated episode in 2017 Heart murmur previously undiagnosed (Acute) Elevated LFTs (Chronic) Vasovagal attack (Acute) Screening for colon cancer (Acute) Medical History Abnormal auditory perception Cerumen impaction Erectile dysfunction History of basal cell cancer History of skin cancer Hyperlipidemia Hypertension Inguinal hernia Keratosis, seborrheic 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 Meds Allergies and Home Medications Allergies Allergy/AdvReac Type Severity Reaction Status Date / Time No Known Allergies Allergy Verified 07/11/22 02:53 Home Medications Medication Instructions Recorded Confirmed Type lisinopril 20 mg tablet 40 mg PO DAILY 06/23/21 07/11/22 History amlodipine 5 mg tablet 5 tab PO DAILY 01/02/22 07/11/22 History Exam Narrative Exam Narrative: General: Patient appears older than stated age and is moderately obese. Alert and oriented x3 and in no acute distress. HEENT: Normocephalic, eyes with pupils equal and react to light symmetrically, extraocular movement intact and sclera anicteric. Oropharynx with moist mucosa and fair dentition. Face does have coarsened features with flushing over her cheeks. Neck: Supple without JVD. Lungs: Fair aeration clear to auscultation and percussion. Back: Stooped posture without CVA tenderness. Heart: Regular rate and rhythm with no murmurs or gallops appreciated. Abdomen: Obese contour, soft to palpation with no guarding or tenderness over right upper quadrant. No Peters sign. Bowel sounds positive all quadrants. Genitalia/rectal: Exam deferred. Extremities: Without clubbing, cyanosis or grossly pitting edema. Joints have fair range of motion. Peripheral pulses intact. Skin: Dry, warm, actinic changes over sun exposed areas otherwise normal. No rashes noted. Neuro: Cranial nerves II to XII gross intact, no focal motor deficits. No tremor. Psych: Normal affect and mood. No abnormal thought processes. Remote and recent memory intact. Results Imaging Imaging Studies: Exam: CTA Chest With Contrast Exam date and time: 07/11/2022 3:26 AM Age: 76 years old Clinical indication: Nausea and vomiting and other: Epigastric pain; Prior surgery; Surgery date: 6+ months; Surgery type: R hip; Patient HX: Hypoxia, epigastric pain TECHNIQUE: Imaging protocol: Computed tomographic angiography of the chest with contrast. 3D rendering (Not supervised by radiologist): MIP and/or 3D reconstructed images were created by the technologist. Radiation optimization: All CT scans at this facility use at least one of these dose optimization techniques: automated exposure control; mA and/or kV adjustment per patient size (includes targeted exams where dose is matched to clinical indication); or iterative reconstruction. Contrast material: OMNIPAQUE 350; Contrast volume: 100 ml; Contrast route: INTRAVENOUS (IV);? COMPARISON: CT CHEST PE ABD PELVIS W 01/02/2022 11:04 PM FINDINGS: Pulmonary arteries: No pulmonary embolism identified. Aorta: No thoracic aortic aneurysm or dissection. Thyroid: Normal sized thyroid gland. Lungs: Mild bilateral dependent opacity. Otherwise, no pulmonary consolidation. Pleural spaces: No pleural effusion or pneumothorax. Heart: Normal sized heart. Lymph nodes: No pathologically enlarged mediastinal or hilar lymph nodes. Bones/joints: No acute fracture seen among the bones of the chest. Soft tissues: No gross soft tissue mass or fluid collection seen in the chest wall. IMPRESSION: Mild dependent bilateral pulmonary opacity. Atelectasis is suspected primarily. Superimposed aspiration or infection is not confidently excluded on the left. Clinical correlation is recommended. PROCEDURE INFORMATION: Exam: CT Abdomen And Pelvis With Contrast Exam date and time: 07/11/2022 3:26 AM Age: 76 years old Clinical indication: Nausea and vomiting and other: Epigastric pain; Prior surgery; Surgery date: 6+ months; Surgery type: R hip; Patient HX: Hypoxia, epigastric pain TECHNIQUE: Imaging protocol: Computed tomography of the abdomen and pelvis with contrast. Radiation optimization: All CT scans at this facility use at least one of these dose optimization techniques: automated exposure control; mA and/or kV adjustment per patient size (includes targeted exams where dose is matched to clinical indication); or iterative reconstruction. Contrast material: OMNIPAQUE 350; Contrast volume: 100 ml; Contrast route: INTRAVENOUS (IV);? COMPARISON: CT CHEST PE ABD PELVIS W 01/02/2022 11:04 PM FINDINGS: Liver: Diffuse fatty infiltration of the liver. Gallbladder and bile ducts: Prominent gallbladder distension. No calcified gallstones or biliary dilatation. Pancreas: Normal appearing pancreas. Spleen: Normal appearing spleen. Adrenal glands: Normal appearing adrenal glands. Kidneys and ureters: 2.3 cm right renal cyst. Additional smaller hypoattenuating renal lesions, incompletely characterized but statistically most likely additional small cysts. No hydronephrosis. No obstructing ureteral stones. Stomach and bowel: No oral contrast. Stomach moderately distended with fluid. No small bowel dilatation to suggest obstruction. Colon largely well evacuated of fecal material. No evidence of diverticulitis or colitis. Appendix: Appendix not identified, obscured if present. Correlation with surgical history recommended. Intraperitoneal space: No gross ascites or free air. Vasculature: Normal caliber abdominal aorta. Lymph nodes: No pathologically enlarged mesenteric, retroperitoneal, or pelvic sidewall lymph nodes. Urinary bladder: Normal appearing urinary bladder. Reproductive: Normal-sized prostate gland. Seminal vesicles largely obscured and poorly evaluated but not grossly enlarged. Bones/joints: Prior right hip arthroplasty with streak artifact created by the metallic prosthesis partially obscuring the lower pelvis. Spinal degenerative change with mild discogenic degeneration at several levels. Soft tissues: Small fat containing ventral hernia at the umbilicus. Moderate-sized fat containing right inguinal region hernia. IMPRESSION: 1. No acute bowel pathology demonstrated. 2. Prominent diffuse fatty infiltration of the liver. Correlation with liver function testing recommended. 3. Prominent gallbladder distension. No calcified gallstones or biliary dilatation. Labs 07/11/22 05:10 07/11/22 02:50 Labs: Laboratory Results - last 24 hr 07/11/22 07/11/22 07/11/22 02:50 02:50 02:50 WBC RBC Hgb Hct MCV MCH MCHC RDW Plt Count MPV Immature Gran % Neutrophils % Lymphocytes % Monocytes % Eosinophils % Basophils % Nucleated RBC % Absolute Neutrophils Absolute Lymphocytes Absolute Monocytes Absolute Eosinophils Absolute Basophils PT INR APTT VBG Lactate Sodium 125 L Potassium 4.5 Chloride 89 L Carbon Dioxide 26.0 Anion Gap 10.0 BUN 26 H Creatinine 1.1 Est GFR (CKD-EPI 2020) 69.57 Glucose 109 H Calcium 8.4 L Magnesium 1.6 L Total Bilirubin 0.8 0.8 Conjugated Bilirubin 0.4 H AST 54 H ALT 78 H Alkaline Phosphatase 86 Troponin I < 50 Total Protein 6.4 Albumin 3.1 L Ethyl Alcohol 7.5 COVID-19 Source Nasal/Nares SARS-CoV-2 (PCR) Negative Patient ABO/Rh Antibody Screen 07/11/22 07/11/22 07/11/22 02:50 02:50 02:50 WBC 6.79 RBC 3.39 L Hgb 12.7 L Hct 34.2 L MCV 101 H MCH 37.5 H MCHC 37.1 H RDW 12.6 Plt Count 211 MPV 8.6 Immature Gran % 1.6 Neutrophils % 77.2 Lymphocytes % 8.0 Monocytes % 12.4 Eosinophils % 0.4 Basophils % 0.4 Nucleated RBC % 0.0 Absolute Neutrophils 5.24 Absolute Lymphocytes 0.54 L Absolute Monocytes 0.84 H Absolute Eosinophils 0.03 Absolute Basophils 0.03 PT 10.5 INR 1.0 APTT 23.6 VBG Lactate 2.1 H Sodium Potassium Chloride Carbon Dioxide Anion Gap BUN Creatinine Est GFR (CKD-EPI 2020) Glucose Calcium Magnesium Total Bilirubin Conjugated Bilirubin AST ALT Alkaline Phosphatase Troponin I Total Protein Albumin Ethyl Alcohol COVID-19 Source SARS-CoV-2 (PCR) Patient ABO/Rh Antibody Screen 07/11/22 07/11/22 02:50 05:10 WBC RBC Hgb 12.8 L Hct 35.1 L MCV MCH MCHC RDW Plt Count MPV Immature Gran % Neutrophils % Lymphocytes % Monocytes % Eosinophils % Basophils % Nucleated RBC % Absolute Neutrophils Absolute Lymphocytes Absolute Monocytes Absolute Eosinophils Absolute Basophils PT INR APTT VBG Lactate Sodium Potassium Chloride Carbon Dioxide Anion Gap BUN Creatinine Est GFR (CKD-EPI 2020) Glucose Calcium Magnesium Total Bilirubin Conjugated Bilirubin AST ALT Alkaline Phosphatase Troponin I Total Protein Albumin Ethyl Alcohol COVID-19 Source SARS-CoV-2 (PCR) Patient ABO/Rh A Positive Antibody Screen NEGATIVE Last Vital Signs Temp 36.4 C L 07/11/22 04:33 Pulse 80 07/11/22 05:01 Resp 14 07/11/22 05:50 BP 92/58 L 07/11/22 05:01 Pulse Ox 92 07/11/22 05:50 Time Spent Time spent with Patient: >75 minutes Time was spent: preparing to see the patient(eg.review tests), obtaining and/or reviewing separately otained hiistory, ordering medications,tests, procedures, referring, communicating with other health direct care provider, indepentently interpreting results, counseling the patient and care coordination
[2022-07-11 07:31] LABS: Troponin I < 50 ng/L (<or=60)
[2022-07-11 08:00] LABS: Lab Add On Test DONE
--- NOTE | 2022-07-11 08:12 | SCONE_ITS ---
Documented by User: SEAN Gonzales 07/11/22 12:19 Date of service: 07/11/22 Time of Service: 08:12 Assessment and Plan Assessment and plan (1) Daily consumption of alcohol: Status: Chronic (2) Acute upper GI bleed: Status: Acute Assessment and plan: Patient appears stable, non-toxic. He denies any nausea or recent vomiting. He describes his symptoms have improved since admission to the ER. H/H was stable upon repeat. Waiting for next check. Awaiting ABD US results also. If patient is stable, would consider starting a PPI and carafate regimen and for the patient to follow up as an out patient. He is scheduled for a Colonoscopy coming up in July, at which time we could also perform EGD. Recommend the patient follow a GERD diet avoiding ETOH, caffiene, spicy foods, citrus foods, tomato based products and chocolate. He should also avoid any further use of NSAIDs for his arthritic complaints. History of Present Illness History of Present Illness Chief Complaint: Hematemesis and Abdominal Pain Narrative: 76 y/o male with a history of HTN presented to the ER with complaints of Ab dominal pain and bloody/coffee ground emesis. Patient reports that he has been having GI issues for a while, however this current issue of bloody emesis began last night after eating some soup. He states that he was having some upper abdominal pain and then he threw up twice prior to calling the ambulance. He states since being in the ER, after receiving carafate, he has been feeling much better, it made all the difference. Patient reports consumping 2-3 glass of wine/day. Patient denies smoking cigarettes, marijuana use or use of any other recreational or illegal drugs. He denies any chest pain, palpitations, dyspnea or dyspnea on exertion. PFSH All Active Problems (Updated 07/11/22 @ 13:08 by Sharlene Cheung NP) Hyponatremia (Acute) Hypomagnesemia (Chronic) Acute blood loss anemia (Acute) Daily consumption of alcohol (Chronic) Alcohol abuse, daily use (Acute) Acute upper GI bleed (Acute) Ulcerative proctitis (Acute) Isolated episode in 2017 Heart murmur previously undiagnosed (Acute) Elevated LFTs (Chronic) Vasovagal attack (Acute) Screening for colon cancer (Acute) Medical History Abnormal auditory perception Cerumen impaction Erectile dysfunction History of basal cell cancer History of skin cancer Hyperlipidemia Hypertension Inguinal hernia Keratosis, seborrheic 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 Exam Const General: cooperative, healthy appearing and comfortable Orientation: alert and oriented x3 Resp Effort & Inspection: normal respiratory effort, no audible wheezes and no cough GI Inspection: normal to inspection Palpation: soft, no guarding, not rigid and nontender Results Last Vital Signs Temp 36.4 C L 07/11/22 04:33 Pulse 80 07/11/22 05:01 Resp 14 07/11/22 05:50 BP 92/58 L 07/11/22 05:01 Pulse Ox 92 07/11/22 05:50 Labs 07/11/22 05:10 07/11/22 02:50 Labs: Laboratory Results - last 24 hr 07/11/22 07/11/22 07/11/22 02:50 02:50 02:50 WBC RBC Hgb Hct MCV MCH MCHC RDW Plt Count MPV Immature Gran % Neutrophils % Lymphocytes % Monocytes % Eosinophils % Basophils % Nucleated RBC % Absolute Neutrophils Absolute Lymphocytes Absolute Monocytes Absolute Eosinophils Absolute Basophils PT INR APTT VBG Lactate Sodium 125 L Potassium 4.5 Chloride 89 L Carbon Dioxide 26.0 Anion Gap 10.0 BUN 26 H Creatinine 1.1 Est GFR (CKD-EPI 2020) 69.57 Glucose 109 H Calcium 8.4 L Magnesium 1.6 L Total Bilirubin 0.8 0.8 Conjugated Bilirubin 0.4 H AST 54 H ALT 78 H Alkaline Phosphatase 86 Troponin I < 50 Total Protein 6.4 Albumin 3.1 L Ethyl Alcohol 7.5 COVID-19 Source Nasal/Nares SARS-CoV-2 (PCR) Negative Add-On Test Request Patient ABO/Rh Antibody Screen 07/11/22 07/11/22 07/11/22 02:50 02:50 02:50 WBC 6.79 RBC 3.39 L Hgb 12.7 L Hct 34.2 L MCV 101 H MCH 37.5 H MCHC 37.1 H RDW 12.6 Plt Count 211 MPV 8.6 Immature Gran % 1.6 Neutrophils % 77.2 Lymphocytes % 8.0 Monocytes % 12.4 Eosinophils % 0.4 Basophils % 0.4 Nucleated RBC % 0.0 Absolute Neutrophils 5.24 Absolute Lymphocytes 0.54 L Absolute Monocytes 0.84 H Absolute Eosinophils 0.03 Absolute Basophils 0.03 PT 10.5 INR 1.0 APTT 23.6 VBG Lactate 2.1 H Sodium Potassium Chloride Carbon Dioxide Anion Gap BUN Creatinine Est GFR (CKD-EPI 2020) Glucose Calcium Magnesium Total Bilirubin Conjugated Bilirubin AST ALT Alkaline Phosphatase Troponin I Total Protein Albumin Ethyl Alcohol COVID-19 Source SARS-CoV-2 (PCR) Add-On Test Request Patient ABO/Rh Antibody Screen 07/11/22 07/11/22 07/11/22 02:50 02:50 05:10 WBC RBC Hgb 12.8 L Hct 35.1 L MCV MCH MCHC RDW Plt Count MPV Immature Gran % Neutrophils % Lymphocytes % Monocytes % Eosinophils % Basophils % Nucleated RBC % Absolute Neutrophils Absolute Lymphocytes Absolute Monocytes Absolute Eosinophils Absolute Basophils PT INR APTT VBG Lactate Sodium Potassium Chloride Carbon Dioxide Anion Gap BUN Creatinine Est GFR (CKDEPI 2020) Glucose Calcium Magnesium Total Bilirubin Conjugated Bilirubin AST ALT Alkaline Phosphatase Troponin I Total Protein Albumin Ethyl Alcohol COVID-19 Source SARS-CoV-2 (PCR) Add-On Test Request DONE Patient ABO/Rh A Positive Antibody Screen NEGATIVE 07/11/22 07:07 WBC RBC Hgb Hct MCV MCH MCHC RDW Plt Count MPV Immature Gran % Neutrophils % Lymphocytes % Monocytes % Eosinophils % Basophils % Nucleated RBC % Absolute Neutrophils Absolute Lymphocytes Absolute Monocytes Absolute Eosinophils Absolute Basophils PT INR APTT VBG Lactate Sodium Potassium Chloride Carbon Dioxide Anion Gap BUN Creatinine Est GFR (CKD-EPI 2020) Glucose Calcium Magnesium Total Bilirubin Conjugated Bilirubin AST ALT Alkaline Phosphatase Troponin I < 50 Total Protein Albumin Ethyl Alcohol COVID-19 Source SARS-CoV-2 (PCR) Add-On Test Request Patient ABO/Rh Antibody Screen Documented by User: Neville Garcia MD 07/11/22 13:57 Assessment and Plan Assessment and plan (1) Daily consumption of alcohol: Status: Chronic Assessment and plan: --stop (2) Acute upper GI bleed: Status: Acute Assessment and plan: Patient appears stable, non-toxic. He denies any nausea or recent vomiting. He describes his symptoms have improved since admission to the ER. H/H was stable upon repeat. Waiting for next check. Awaiting ABD US results also. If patient is stable, would consider starting a PPI and carafate regimen and for the patient to follow up as an out patient. He is scheduled for a Colonoscopy coming up in July, at which time we could also perform EGD. Recommend the patient follow a GERD diet avoiding ETOH, caffiene, spicy foods, citrus foods, tomato based products and chocolate. He should also avoid any further use of NSAIDs for his arthritic complaints. I have seen and examined the patient, and agree with Macie Alfaro's statements and evaulation. The pt is stable, and without further symptoms. His H/H has been stable x3. He is scheduled for elective colonoscopy on 08/03, and EGD can be competed at that time. Until then, he should take protonix 40mg bid, and carafate qac qhs. He should obstain from NSAIDs, alcohol, smoking, chocolate, caffeine, spicy foods, acidic foods, etc. This was explained to the patient and he demonstrated understanding and agreement. PFSH All Active Problems (Updated 07/11/22 @ 13:08 by Sharlene Cheung NP) Hyponatremia (Acute) Hypomagnesemia (Chronic) Acute blood loss anemia (Acute) Daily consumption of alcohol (Chronic) Alcohol abuse, daily use (Acute) Acute upper GI bleed (Acute) Ulcerative proctitis (Acute) Isolated episode in 2017 Heart murmur previously undiagnosed (Acute) Elevated LFTs (Chronic) Vasovagal attack (Acute) Screening for colon cancer (Acute) Medical History Abnormal auditory perception Cerumen impaction Erectile dysfunction History of basal cell cancer History of skin cancer Hyperlipidemia Hypertension Inguinal hernia Keratosis, seborrheic 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 Results Labs 07/11/22 05:10 07/11/22 02:50
[2022-07-11 08:46] LABS: HCT 35.3 % (40.0-50.0); HGB 12.9 g/dL (13.5-17.5)
[2022-07-11 08:48] LABS: Iron 154 ug/dL (65-175); Total Iron Binding Capacity 179 ug/dL (250-450); Transferrin Sat 86 % (20-55)
[2022-07-11] MEDS: Pantoprazole 40 MG VIAL IVP (08:52)
[2022-07-11] MEDS: Normal Saline 1,000 ML 150 ML IV (08:53)
[2022-07-11 09:04] LABS: Folate 1.7 ng/mL (8.6-20.0)
--- NOTE | 2022-07-11 12:28 | NUR.NOTE ---
Assumed Care from LOULOU RN at 1000, FPJ
--- NOTE | 2022-07-11 12:47 | W.PM.DS.N ---
Date of service: 07/11/22 Time of Service: 12:49 DS: Diagnosis Discharge Diagnosis (1) Daily consumption of alcohol: Status: Chronic Asessment and Plan: Stop drinking alcohol (2) Acute upper GI bleed: Status: Acute (3) Hypomagnesemia: Status: Chronic (4) Hyponatremia: Status: Acute (5) Acute blood loss anemia: Status: Acute Discharge Plan Disposition Patient Disposition: Home Condition: Stable Discharge Details Clinical Impression: Acute upper GI bleed, Alcohol abuse, daily use Primary Care Provider: Dannielle Lee ED Provider: Kevin Pham Home Meds and New Rx's Prescriptions: New pantoprazole 40 mg tablet,delayed release (DR/EC) 40 mg PO BID Qty: 60 0RF sucralfate [Carafate] 1 gram tablet 1 g PO QACHS Qty: 120 0RF magnesium oxide 400 mg magnesium tablet 400 mg PO DAILY Qty: 30 0RF No Action lisinopril 20 mg tablet 40 mg PO DAILY amlodipine 5 mg tablet 5 tab PO DAILY Patient Comments: TAKE 1 TABLET BY MOUTH EVERY DAY Discharge Instructions Instructions: Gastrointestinal Bleeding (ED), Abuse of Alcohol (ED) Additional Instructions: Return to the emergency department if further bleeding occurs. Start a PPI and carafate regimen; take magnesium supplement daily Follow up with surgery in July for your scheduled colonoscopy. Follow a GERD diet avoid alcohol, caffiene, spicy foods, citrus foods, tomato based products and chocolate Avoid any further use of NSAIDs for his arthritic complaints. Referrals: Dannielle Lee [Primary Care Provider] - (1-2 weeks) Discharge Data Discharge Date/Time-TO BE ENTERED AT DEPARTURE: 07/11/22 14:14 Discharge Physician: Sharlene Cheung DS: Summary Time Spent with Patient providing and/or coordinating discharge services: Greater than 30 minutes Status at Discharge Functional status at discharge: independent ambulation Overall status at discharge: patient is back to baseline Mental Status: mental status grossly normal Speech and Movement: speech and movement normal Mood: congruent mood Affect: normal affect Exam Narrative Exam Narrative: Awake, alert sitting up 45 degrees in hospital bed. Conversant, pleasant. Const General: cooperative, healthy appearing and comfortable Orientation: alert and oriented x3 HENMT Head: normal to inspection Ears: hearing grossly normal bilaterally and external ears normal General nose exam: external nose normal Face and sinus: normal facial exam Mouth: oral mucosae normal Eyes General: appearance normal, both eyes and all related structures Eyelids: eyelids normal EOM: EOM intact bilaterally Neck Neck: normal visual inspection Lymphatic: no lymphadenopathy noted Chest Chest: normal inspection of the chest Resp Effort & Inspection: normal respiratory effort, no audible wheezes and no cough Auscultation: clear to auscultation bilaterally Cardio Rate: regular rate Rhythm: regular rhythm GI Inspection: normal to inspection Palpation: soft, no guarding, not rigid and nontender Auscultation: normal bowel sounds Skin General skin exam: no rashes or lesions noted Neuro General: patient alert and patient awake Cognition: normal cognition Speech: speech normal Motor: muscle tone normal throughout Sensory Exam: no sensory deficits noted Extrem General: normal to inspection, full ROM and capillary refill normal Psych Appearance: grossly normal Mental Status: mental status grossly normal Speech and Movement: speech and movement normal Mood: congruent mood Affect: normal affect Thought Process: normal DS: Data Vitals/I&O Vitals and I&O: Vital Signs Temperature 36.4 C L 07/11/22 04:33 Temperature Source Oral 07/11/22 04:33 Pulse 74 07/11/22 11:01 Pulse 75 07/11/22 11:20 Respiratory Rate 15 07/11/22 11:10 Respiratory Effort Normal 07/11/22 02:45 Blood Pressure 114/72 07/11/22 11:01 Blood Pressure Mean 81 07/11/22 11:01 Blood Pressure Position Sitting 07/11/22 02:39 Pulse Oximetry 93 07/11/22 11:20 Oxygen Delivery Method Room Air 07/11/22 02:39 Oxygen Flow Rate 0 07/11/22 02:39 Pain Level 3 07/11/22 02:45 Comment curernt headache and nausea 07/11/22 02:39 Intake & Output 07/10/22 07/11/22 07/11/22 23:59 11:59 23:59 Intake Total 1150 / 1150 Balance 1150 / 1150 Weight 90.718 kg Intake: IV 1150 / 1150 Other: Stool Occult Blood Positive Stool Size Moderate Stool Characteristics Soft Data Completed and Pending Completed studies during hospitalization [Text1]: EKG Conclusion Sinus rhythm...normal P axis, V-rate? 60- 99 Pending studies at discharge: None Labs on day of discharge: Labs from last 24 hours 07/11/22 07/11/22 07/11/22 08:40 07:07 05:10 WBC RBC Hgb 12.9 L 12.8 L Hct 35.3 L 35.1 L MCV MCH MCHC RDW Plt Count MPV Immature Gran % Neutrophils % Lymphocytes % Monocytes % Eosinophils % Basophils % Nucleated RBC % Absolute Neutrophils Absolute Lymphocytes Absolute Monocytes Absolute Eosinophils Absolute Basophils PT INR APTT VBG Lactate Sodium Potassium Chloride Carbon Dioxide Anion Gap BUN Creatinine Est GFR (CKD-EPI 2020) Glucose Calcium Magnesium Iron TIBC Transferrin % Sat Total Bilirubin Conjugated Bilirubin AST ALT Alkaline Phosphatase Troponin I < 50 Total Protein Albumin Folate Ethyl Alcohol COVID-19 Source SARS-CoV-2 (PCR) Add-On Test Request Patient ABO/Rh Antibody Screen 07/11/22 07/11/22 07/11/22 02:50 02:50 02:50 WBC RBC Hgb Hct MCV MCH MCHC RDW Plt Count MPV Immature Gran % Neutrophils % Lymphocytes % Monocytes % Eosinophils % Basophils % Nucleated RBC % Absolute Neutrophils Absolute Lymphocytes Absolute Monocytes Absolute Eosinophils Absolute Basophils PT INR APTT VBG Lactate Sodium Potassium Chloride Carbon Dioxide Anion Gap BUN Creatinine Est GFR (CKD-EPI 2020) Glucose Calcium Magnesium Iron 154 TIBC 179 L Transferrin % Sat 86 H Total Bilirubin Conjugated Bilirubin AST ALT Alkaline Phosphatase Troponin I Total Protein Albumin Folate 1.7 L Ethyl Alcohol COVID-19 Source SARS-CoV-2 (PCR) Add-On Test Request DONE Patient ABO/Rh Antibody Screen 07/11/22 07/11/22 07/11/22 02:50 02:50 02:50 WBC 6.79 RBC 3.39 L Hgb 12.7 L Hct 34.2 L MCV 101 H MCH 37.5 H MCHC 37.1 H RDW 12.6 Plt Count 211 MPV 8.6 Immature Gran % 1.6 Neutrophils % 77.2 Lymphocytes % 8.0 Monocytes % 12.4 Eosinophils % 0.4 Basophils % 0.4 Nucleated RBC % 0.0 Absolute Neutrophils 5.24 Absolute Lymphocytes 0.54 L Absolute Monocytes 0.84 H Absolute Eosinophils 0.03 Absolute Basophils 0.03 PT 10.5 INR 1.0 APTT 23.6 VBG Lactate Sodium Potassium Chloride Carbon Dioxide Anion Gap BUN Creatinine Est GFR (CKD-EPI 2020) Glucose Calcium Magnesium Iron TIBC Transferrin % Sat Total Bilirubin Conjugated Bilirubin AST ALT Alkaline Phosphatase Troponin I Total Protein Albumin Folate Ethyl Alcohol COVID-19 Source SARS-CoV-2 (PCR) Add-On Test Request Patient ABO/Rh A Positive Antibody Screen NEGATIVE 07/11/22 07/11/22 07/11/22 02:50 02:50 02:50 WBC RBC Hgb Hct MCV MCH MCHC RDW Plt Count MPV Immature Gran % Neutrophils % Lymphocytes % Monocytes % Eosinophils % Basophils % Nucleated RBC % Absolute Neutrophils Absolute Lymphocytes Absolute Monocytes Absolute Eosinophils Absolute Basophils PT INR APTT VBG Lactate 2.1 H Sodium 125 L Potassium 4.5 Chloride 89 L Carbon Dioxide 26.0 Anion Gap 10.0 BUN 26 H Creatinine 1.1 Est GFR (CKD-EPI 2020) 69.57 Glucose 109 H Calcium 8.4 L Magnesium 1.6 L Iron TIBC Transferrin % Sat Total Bilirubin 0.8 0.8 Conjugated Bilirubin 0.4 H AST 54 H ALT 78 H Alkaline Phosphatase 86 Troponin I < 50 Total Protein 6.4 Albumin 3.1 L Folate Ethyl Alcohol 7.5 COVID-19 Source SARS-CoV-2 (PCR) Add-On Test Request Patient ABO/Rh Antibody Screen 07/11/22 02:50 WBC RBC Hgb Hct MCV MCH MCHC RDW Plt Count MPV Immature Gran % Neutrophils % Lymphocytes % Monocytes % Eosinophils % Basophils % Nucleated RBC % Absolute Neutrophils Absolute Lymphocytes Absolute Monocytes Absolute Eosinophils Absolute Basophils PT INR APTT VBG Lactate Sodium Potassium Chloride Carbon Dioxide Anion Gap BUN Creatinine Est GFR (CKD-EPI 2020) Glucose Calcium Magnesium Iron TIBC Transferrin % Sat Total Bilirubin Conjugated Bilirubin AST ALT Alkaline Phosphatase Troponin I Total Protein Albumin Folate Ethyl Alcohol COVID-19 Source Nasal/Nares SARS-CoV-2 (PCR) Negative Add-On Test Request Patient ABO/Rh Antibody Screen Imaging CT scan - pelvis: Radiologist's impression: Chest/Abdomen/Pelvis CT IMPRESSION: Mild dependent bilateral pulmonary opacity. Atelectasis is suspected primarily. Superimposed aspiration or infection is not confidently excluded on the left. Clinical correlation is recommended. Lab and Radiology Reports: Laboratory Results WBC 6.79 10^3/uL (4.4-10.8) 07/11/22 02:50 RBC 3.39 10^6/uL (4.36-5.78) L 07/11/22 02:50 Hgb 12.9 g/dL (13.5-17.5) L 07/11/22 08:40 Hct 35.3 % (40.0-50.0) L 07/11/22 08:40 MCV 101 fL (80-95) H 07/11/22 02:50 MCH 37.5 pg (27.0-33.0) H 07/11/22 02:50 MCHC 37.1 % (32.0-36.0) H 07/11/22 02:50 RDW 12.6 % (11.8-14.1) 07/11/22 02:50 Plt Count 211 10^3/uL (130-400) 07/11/22 02:50 MPV 8.6 fL (8.0-11.0) 07/11/22 02:50 Immature Gran % 1.6 07/11/22 02:50 Neutrophils % 77.2 07/11/22 02:50 Lymphocytes % 8.0 07/11/22 02:50 Monocytes % 12.4 07/11/22 02:50 Eosinophils % 0.4 07/11/22 02:50 Basophils % 0.4 07/11/22 02:50 Nucleated RBC % 0.0 % (0.0-0.3) 07/11/22 02:50 Absolute Neutrophils 5.24 10^3/uL (1.2-6.7) 07/11/22 02:50 Absolute Lymphocytes 0.54 10^3/uL (1.2-3.4) L 07/11/22 02:50 Absolute Monocytes 0.84 10^3/uL (0.1-0.8) H 07/11/22 02:50 Absolute Eosinophils 0.03 10^3/uL (0.0-0.7) 07/11/22 02:50 Absolute Basophils 0.03 10^3/uL (0.0-0.2) 07/11/22 02:50 PT 10.5 sec (9.3-11.0) 07/11/22 02:50 INR 1.0 (0.9-1.1) 07/11/22 02:50 APTT 23.6 sec (21.5-31.9) 07/11/22 02:50 VBG Lactate 2.1 mmol/L (0.6-1.4) H 07/11/22 02:50 Sodium 125 mmol/L (136-145) L 07/11/22 02:50 Potassium 4.5 mmol/L (3.5-5.1) 07/11/22 02:50 Chloride 89 mmol/L (98-107) L 07/11/22 02:50 Carbon Dioxide 26.0 mmol/L (21.0-32.0) 07/11/22 02:50 Anion Gap 10.0 mmol/L (3-11) 07/11/22 02:50 BUN 26 mg/dL (7-18) H 07/11/22 02:50 Creatinine 1.1 mg/dL (0.70-1.30) 07/11/22 02:50 Est GFR (CKD-EPI 2020) 69.57 (mL/min/1.73m2) 07/11/22 02:50 Glucose 109 mg/dL (74-106) H 07/11/22 02:50 Calcium 8.4 mg/dL (8.5-10.1) L 07/11/22 02:50 Magnesium 1.6 mg/dL (1.8-2.4) L 07/11/22 02:50 Iron 154 ug/dL (65-175) 07/11/22 02:50 TIBC 179 ug/dL (250-450) L 07/11/22 02:50 Transferrin % Sat 86 % (20-55) H 07/11/22 02:50 Total Bilirubin 0.8 mg/dL (0.2-1.0) 07/11/22 02:50 Total Bilirubin 0.8 mg/dL (0.2-1.0) 07/11/22 02:50 Conjugated Bilirubin 0.4 mg/dL (0.0-0.2) H 07/11/22 02:50 AST 54 U/L (15-37) H 07/11/22 02:50 ALT 78 U/L (16-63) H 07/11/22 02:50 Alkaline Phosphatase 86 U/L (46-116) 07/11/22 02:50 Troponin I < 50 ng/L (<or=60) 07/11/22 07:07 Total Protein 6.4 g/dL (6.4-8.2) 07/11/22 02:50 Albumin 3.1 g/dL (3.4-5.0) L 07/11/22 02:50 Folate 1.7 ng/mL (8.6-20.0) L 07/11/22 02:50 Ethyl Alcohol 7.5 mg/dL (<10) 07/11/22 02:50 COVID-19 Source Nasal/Nares 07/11/22 02:50 SARS-CoV-2 (PCR) Negative (Negative) 07/11/22 02:50 Add-On Test Request DONE 07/11/22 02:50 Patient ABO/Rh A Positive 07/11/22 02:50 Antibody Screen NEGATIVE 07/11/22 02:50 Additional Comments Additional comments: 76 y/o male with a history of HTN presented to the [facility] ED with complaints of Abdominal pain and bloody/coffee ground emesis. Patient reported he has been having GI issues for a while, however this current issue of bloody emesis began last night after eating some soup. He stated he was having some upper abdominal pain and then he vomited twice prior to calling the ambulance. He stated since being in the ED, after receiving carafate, he is feeling much better, it made all the difference. Patient reported consumping 2-3 glasses of wine/day. Patient denied smoking cigarettes, marijuana use or use of any other recreational or illegal drugs. He denied any chest pain, palpitations, dyspnea or dyspnea on exertion. He was evaluated by surgery and the recommendation was to start a PPI and carafate regimen and for the patient to follow up with surgery as an out patient. He is scheduled for a Colonoscopy coming up in July, at which time they could also perform EGD. He should follow a GERD diet avoid alcohol, caffiene, spicy foods, citrus foods, tomato based products and chocolate. He should also avoid any further use of NSAIDs for his arthritic complaints. PFSH All Active Problems (Updated 07/11/22 @ 13:08 by Sharlene Cheung NP) Hyponatremia (Acute) Hypomagnesemia (Chronic) Acute blood loss anemia (Acute) Daily consumption of alcohol (Chronic) Alcohol abuse, daily use (Acute) Acute upper GI bleed (Acute) Ulcerative proctitis (Acute) Isolated episode in 2017 Heart murmur previously undiagnosed (Acute) Elevated LFTs (Chronic) Vasovagal attack (Acute) Screening for colon cancer (Acute) Medical History Abnormal auditory perception Cerumen impaction Erectile dysfunction History of basal cell cancer History of skin cancer Hyperlipidemia Hypertension Inguinal hernia Keratosis, seborrheic 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 Time Spent with Patient Time Spent with Patient: 45-69 minutes Time was spent: preparing to see the patient(eg.review tests), obtaining and/or reviewing separately otained hiistory, ordering medications,tests, procedures, referring, communicating with other health certified social workers in health care, indepentently interpreting results, counseling the patient and care coordination
[2022-07-11 14:29] LABS: Sodium, Urine 10 mmol/L
== END 2022-07-12 06:10 | disposition home or self-care (01) | DRG 378 ==
LOC: ER 22:06 → MS 07-19 09:18
PROVIDERS: Internal Medicine; Nurse Practitioner Family; Admitting Provider Family Medicine; Emergency Provider Emergency Medicine; PCP Nurse Practitioner Family; Visit Provider Family Medicine
DX: K92.2 Gastrointestinal hemorrhage, unspecified (principal); J98.11 Atelectasis; I10 Essential (primary) hypertension; Z20.822 Contact with and (suspected) exposure to COVID-19; Z79.899 Other long term (current) drug therapy
CPT/HCPCS: 36415; 71275; 74177; 80053; 86850; 86900; 86901; 87635; 93005; 96361; 96365; 96366; 96367; 96375; 96376; 99221; 99285; 76705; 80320; 82247; 82248; 82746; 83540; 83550; 83605; 83735; 84300; 84484; 85014; 85018; 85025; 85610; 85730; 93010; 99236; J0131; J2405; J3490

== ENCOUNTER 2022-07-25 12:22 | Outpatient (REF) | payer OTHER, SELFPAY ==
[2022-07-25 15:45] LABS: HGB 12.4 g/dL (13.5-17.5); MCH 36.5 pg (27.0-33.0); MCHC 34.4 % (32.0-36.0); MCV 106 fL (80-95); MPV 8.9 fL (8.0-11.0); Platelet Count 306 10^3/uL (130-400); RDW-SD 50.8 fL; WBC 6.46 10^3/uL (4.4-10.8)
[2022-07-25 15:56] LABS: ALT 74 U/L (16-63); AST 78 U/L (15-37); Albumin 3.2 g/dL (3.4-5.0); Alkaline Phosphatase 108 U/L (46-116); Anion Gap 9.9 mmol/L (3-11); BUN 7 mg/dL (7-18); Bilirubin, Total 0.8 mg/dL (0.2-1.0); CO2 24.1 mmol/L (21.0-32.0); CREATININE 0.9 mg/dL (0.70-1.30); Calcium 8.9 mg/dL (8.5-10.1); Chloride 105 mmol/L (98-107); Estimated GFR 88.51 (mL/min/1.73m2); Glucose 95 mg/dL (74-106); Potassium 3.7 mmol/L (3.5-5.1); Sodium 139 mmol/L (136-145); Total Protein 6.8 g/dL (6.4-8.2)
== END 2022-07-25 12:23 | disposition home or self-care (01) ==
LOC: NCHCN 12:22
PROVIDERS: PCP Nurse Practitioner Family; Visit Provider Nurse Practitioner Family
DX: R79.89 Other specified abnormal findings of blood chemistry (principal); Z87.19 Personal history of other diseases of the digestive system
CPT/HCPCS: 80053; 85027

== ENCOUNTER 2022-08-03 11:13 | Day surgery (SDC) | payer OTHER, SELFPAY ==
--- NOTE | 2022-07-11 13:42 | W.PM.DS.N ---
Date of service: 07/11/22 Time of Service: 13:43 Discharge Plan Discharge Details Attending Provider: Edmundo Fletcher Primary Care Provider: Dannielle Lee Home Meds and New Rx's Prescriptions: No Action lisinopril 20 mg tablet 40 mg PO DAILY amlodipine 5 mg tablet 5 tab PO DAILY Patient Comments: TAKE 1 TABLET BY MOUTH EVERY DAY pantoprazole 40 mg tablet,delayed release (DR/EC) 40 mg PO BID Qty: 60 0RF sucralfate [Carafate] 1 gram tablet 1 g PO QACHS Qty: 120 0RF magnesium oxide 400 mg magnesium tablet 400 mg PO DAILY Qty: 30 0RF PFSH All Active Problems (Updated 07/11/22 @ 13:08 by Sharlene Cheung NP) Hyponatremia (Acute) Hypomagnesemia (Chronic) Acute blood loss anemia (Acute) Daily consumption of alcohol (Chronic) Alcohol abuse, daily use (Acute) Acute upper GI bleed (Acute) Ulcerative proctitis (Acute) Isolated episode in 2017 Heart murmur previously undiagnosed (Acute) Elevated LFTs (Chronic) Vasovagal attack (Acute) Screening for colon cancer (Acute) Medical History Abnormal auditory perception Cerumen impaction Erectile dysfunction History of basal cell cancer History of skin cancer Hyperlipidemia Hypertension Inguinal hernia Keratosis, seborrheic 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
--- NOTE | 2022-08-03 06:43 | COLE_ITS ---
Date of service: 08/03/22 Time of Service: 15:39 Colonoscopy Report Date of procedure: 08/03/22 Pre-op diagnosis general: Anemia of uncertain etiology Post-op diagnosis procedure note: other (Gastritis, colon polyps, colon vascular ectasia) Procedure: EGD and colonoscopy Surgeon: Edmundo Fletcher Anesthesia Type: General:No Airway Estimated blood loss (mL): 10 Pathology: other (Gastric antrum and body biopsies, cecal polyps x2) Complications: None Disposition: same day Indications: Alpesh is a 76-year-old male who was originally scheduled for a routine screening colonoscopy. However, while awaiting the procedure, he was hospitalized for acute blood loss anemia. The thought was that perhaps there was an upper source of gastrointestinal hemorrhage. He was started on proton pump inhibition therapy as well as Carafate. Prep: Miralax/Dulcolax Procedure Start Time: 13:47 Procedure End Time: 14:13 Retraction Time: 11 Findings: Mild gastritis, cecal polyps x2, colonic vascular ectasia Procedure Description: After the initiation of monitored anesthetic care, and with the assistance of a bite block, I advanced a standard gastroscope through the mouth past the hypopharynx and into the esophagus.? Under the direct vision of the scope, I advanced down the esophagus into the stomach.? Once I entered the stomach, I performed a brief inspection, followed by retroflexion towards the gastric cardia.? There was some linear erythema extending from the gastric antrum and the body. There were also few punctate areas of inflammation. I did not see any discrete ulcers.? Next, I advanced the scope through the pylorus into the d uodenum.? The mucosa was pink and healthy appearing.? There were no abnormalities.? I was able to visualize bile draining into the duodenum through the ampulla Vater. ?Next, I began retracting the endoscope. I brought the camera back into the stomach and performed random biopsies of the gastric antrum and body.? I then gently desufflated some of the stomach, and withdrew the endoscope into the distal esophagus. Z-line was totally normal-appearing, with the GE junction at 40 cm. ?Finally, I withdrew the scope along the length of the esophagus taking great care to examine the entirety of the mucosa.? I did not appreciate any abnormalities. We then moved to Alpesh into the left lateral decubitus position. I began by performing an external anorectal exam.? Perineum and skin were normal, as was the anal verge.? There was no evidence of external hemorrhoids.? Next, I performed a digital rectal exam.? I did not appreciate any abnormal findings.? Next, I advanced a colonoscope into the rectal vault.? I performed retroflexion.? There were grade 1 internal hemorrhoids.? Using insufflation, I then advanced the colonoscope beyond the rectal folds and into the sigmoid colon before advancing towards the cecum.? Approximately 30 cm from the anal verge was a small area of vascular ectasia. It was less than 0.5 cm in size. I cauterized this.? The scope was noted to be in the cecum by identification of the ileocecal valve and appendiceal orifice.?The quality of the prep was excellent. There were 2 polyps in the cecum. Each was less than 0.25 cm. They were both sessile. I removed them both with cold forcep polypectomy. There was minimal bleeding. I then began withdrawing the colonoscope using repeated irrigation as necessary for full evaluation of the colonic mucosa. ?Once the sc ope was withdrawn to the level of the rectum, great care was taken to examine portions of the rectal folds.? Finally, the scope was withdrawn and the patient was brought to the same-day surgery recovery unit as the anesthetic wore off. ?The findings and instructions were shared with the patient prior to discharge.
--- NOTE | 2022-08-03 06:44 | W.PM.HP.N ---
Date of service: 08/03/22 Time of Service: 13:11 Assessment and Plan Assessment and plan (1) Screening for colon cancer: Status: Acute Assessment and plan: We talked about his recent diagnosis of anemia, and adding a upper endoscopy onto the planned colonoscopy. He has a good understanding of the risks and the benefits of the procedures. He provided informed consent today. We will proceed with that plan. History of Present Illness History of Present Illness Chief Complaint: Anemia Narrative: Alpesh is a 76-year-old male who was originally scheduled by my office for routine screening colonoscopy. However, while awaiting this procedure, he was admitted to the hospital with , and found to have acute blood loss anemia. 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, soft tissue, and skin Oral ulceration Surgical History (Updated 08/03/22 @ 11:35 by Osiris Salazar) Hx of colonoscopy S/P total hip resurfacing right hip approx 2005 Social History Smoking/Tobacco Use Status: Never Smoking risk assessment performed?: Yes Alcohol Intake: current Alcohol Intake frequency: 0-2 drinks per day Alcohol type: wine Drug use: Never Substance use type: does not use Do you feel safe at home: Yes Do you feel safe in your relationship?: Yes Meds Allergies and Home Medications Allergies Allergy/AdvReac Type Severity Reaction Status Date / Time No Known Allergies Allergy Verified 08/03/22 11:36 Home Medications Medication Instructions Recorded Confirmed Type lisinopril 20 mg tablet 40 mg PO DAILY 06/23/21 08/03/22 History amlodipine 5 mg tablet 5 tab PO DAILY 01/02/22 08/03/22 History magnesium oxide 400 mg PO DAILY #30 tabs 07/11/22 08/03/22 Rx sucralfate 1 gram tablet (Carafate) 1 g PO QACHS #120 tabs 07/11/22 08/03/22 Rx pantoprazole 40 mg tablet,delayed 40 mg PO BID 08/03/22 08/03/22 History release Exam Const General: cooperative, healthy appearing and comfortable Orientation: awake and oriented x3 Eyes General: appearance normal, both eyes and all related structures Conjunctivae: conjunctivae normal Sclera: sclerae normal Resp Effort & Inspection: normal respiratory effort and able to speak in complete sentences Auscultation: clear to auscultation bilaterally Cardio Jugular venous pressure: no JVD Rate: regular rate Rhythm: regular rhythm Heart Sounds: S1 normal and S2 normal GI Inspection: non-distended Palpation: soft, no guarding, no hernias and nontender Auscultation: normal bowel sounds Skin General skin exam: normal turgor Neuro General: patient alert, patient awake and patient oriented x3 Cognition: normal cognition Extrem Right lower extremity: no edema Left lower extremity: no edema Time Spent Time spent with Patient: <40 minutes Time was spent: preparing to see the patient(eg.review tests) and counseling the patient
[2022-08-03 11:39] VITALS: BP 138/104; PULSE 75; RESP 16; TEMP 36.4; O2SAT 95
[2022-08-03] MEDS: Lactated Ringers 1,000 ML 80 ML IV (12:00)
[2022-08-03 12:01] VITALS: BP 132/94; PULSE 74
--- NOTE | 2022-08-03 12:01 | W.ANESPRE ---
General Info Date of Service Date Performed: 08/03/22 Height: 5 ft 9 in Weight: 85.4 kg Body Mass Index (BMI): 27.8 Surgical Procedure: Operation Date: 08/03/22 13:05 Proposed Procedure Side Surgeon p Colonoscopy/Gastroscopy Edmundo Fletcher MD Meds Allergies and Home Medications Allergies Allergy/AdvReac Type Severity Reaction Status Date / Time No Known Allergies Allergy Verified 08/03/22 11:36 Home Medication Medication Instructions Recorded lisinopril 20 mg tablet 40 mg PO DAILY 06/23/21 amlodipine 5 mg tablet 5 tab PO DAILY 01/02/22 magnesium oxide 400 mg PO DAILY #30 tabs 07/11/22 sucralfate 1 gram tablet (Carafate) 1 g PO QACHS #120 tabs 07/11/22 pantoprazole 40 mg tablet,delayed 40 mg PO BID 08/03/22 release Current Visit Medications: Current Medications Generic Name Dose Route Start Last Admin Trade Name Freq PRN Reason Stop Dose Admin Ringer's Solution 1,000 mls @ 80 mls/hr 08/03/22 06:00 IV 09/01/22 23:59 INFUSION CARIDAD IV Miscellaneous Supplies 1 each 08/03/22 06:00 Iv Access IV 09/01/22 23:59 DIRECTED CARIDAD Sodium Chloride 0 ml 08/03/22 06:00 Normal Saline Flush 10 Ml Syr IV 09/01/22 23:59 PRN PRN Sodium Chloride 0 ml 08/03/22 06:00 Normal Saline 10 Ml Vial IJ 09/01/22 23:59 DIRECTED PRN Sterile Water 0 ml 08/03/22 06:00 Water,Injection,Sterile 10 Ml Vial IJ 09/01/22 23:59 DIRECTED PRN PFSH Active Problems Active Problems: Problem Status Onset Code Screening for colon cancer Z12.11 Vasovagal attack R55 Elevated LFTs R79.89 Heart murmur previously undiagnosed R01.1 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 Applied skin cream prescription and it did stop itching. Surgical History Surgical History (Updated 08/03/22 @ 11:35 by Osiris Salazar) Hx of colonoscopy S/P total hip resurfacing right hip approx 2005 Tobacco Smoking/Tobacco Use Status: Never Alcohol Alcohol Intake: current Alcohol intake frequency: 0-2 drinks per day Alcohol type: wine Substance Use Substance use: Never Substance use type: does not use Vital Signs and Lab Results Vital Signs Most Recent Vital Signs in EMR: Most Recent Vital Signs Temp Pulse Resp BP Pulse Ox 36.4 C L 75 16 138/104 H 95 08/03/22 11:39 08/03/22 11:39 08/03/22 11:39 08/03/22 11:39 08/03/22 11:39 Lab Results Blood Type / Crossmatch: Patient ABO/Rh A Positive 07/11/22 Antibody Screen NEGATIVE 07/11/22 Complete Blood Count: White Blood Count 6.46 10^3/uL (4.4-10.8) 07/25/22 12:00 Red Blood Count 3.40 10^6/uL (4.36-5.78) L 07/25/22 12:00 Hemoglobin 12.4 g/dL (13.5-17.5) L 07/25/22 12:00 Hematocrit 36.0 % (40.0-50.0) L 07/25/22 12:00 Platelet Count 306 10^3/uL (130-400) 07/25/22 12:00 Venous Blood Lactate 2.1 mmol/L (0.6-1.4) H 07/11/22 02:50 Complete Metabolic Panel: Sodium 139 mmol/L (136-145) 07/25/22 12:00 Potassium 3.7 mmol/L (3.5-5.1) 07/25/22 12:00 Chloride 105 mmol/L (98-107) 07/25/22 12:00 Carbon Dioxide 24.1 mmol/L (21.0-32.0) 07/25/22 12:00 BUN 7 mg/dL (7-18) 07/25/22 12:00 Creatinine 0.9 mg/dL (0.70-1.30) 07/25/22 12:00 Est GFR (CKD-EPI 2020) 88.51 (mL/min/1.73m2) 07/25/22 12:00 Magnesium 1.6 mg/dL (1.8-2.4) L 07/11/22 02:50 Calcium 8.9 mg/dL (8.5-10.1) 07/25/22 12:00 Albumin 3.2 g/dL (3.4-5.0) L 07/25/22 12:00 Glucose 95 mg/dL (74-106) 07/25/22 12:00 Liver Function Panel: Alanine Aminotransferase (ALT/SGPT) 74 U/L (16-63) H 07/25/22 12:00 Aspartate Amino Transf (AST/SGOT) 78 U/L (15-37) H 07/25/22 12:00 Coagulation Panel: INR International Normalized Ratio 1.0 (0.9-1.1) 07/11/22 02:50 Prothrombin Time 10.5 sec (9.3-11.0) 07/11/22 02:50 Activated Partial Thromboplast Time 23.6 sec (21.5-31.9) 07/11/22 02:50 Cardiac Panel: Troponin I < 50 ng/L (<or=60) 07/11/22 Arterial Blood Gas: No Data to Display Venous Blood Gas: No Data to Display Pancreas Panel: No Data to Display Thyroid Panel: No Data to Display Infectious Disease: Coronavirus (COVID-19)(PCR) Negative (Negative) 07/11/22 02:50 Coronavirus 2019 Source Nasal/Nares 07/11/22 02:50 Blood Cultures: No Data to Display Toxicology Panel: Ethyl Alcohol Level 7.5 mg/dL (<10) 07/11/22 02:50 Imaging and Studies Imaging and Studies Study information below may be from another EMR and interpreted by another provider. Please see original notes in EMR for more complete details. EKG Summary: 07/11/2022: Exam: Resting ECG Reason for Exam: gi bleed Patient Location: E HR:72 bpm ECG Measurements Heart Rate 72 AXIS GA 95 P 0 QRSd 88 QRS 26 QT 418 T64 QTc 457 Conclusion Sinus rhythm...normal P axis, V-rate 60- 99 Nonspecific T abnormalities, anterior leads...T <-0.10mV, V2-V4 I have reviewed and I agree with the emergency room physician's ECG interpretation. Electronically signed by: <Electronically signed by Berta Jose M.D. in [place]> 07/11/22 0813 Cosigned by: Echocardiogram Summary: 05/23/2022: Conclusion Normal left ventricular wall thickness and chamber size. Estimated ejection fraction is 60 to 65%. Wall motion is normal Normal right ventricular size and systolic function Both atria are normal in size Aortic valve is trileaflet and mildly calcified. There is no aortic stenosis. There is trace regurgitation Structurally normal mitral valve with mild to moderate regurgitation Normal tricuspid valve with trace regurgitation. Estimated right ventricular systolic pressure is 16 mmHg Dilated ascending aorta measuring 3.97 cm Anesthesia Assessment and Plan Anesthesia History Personal History: No History of Anesthesia Complications Family History: No Family History of Anesthesia Complications Exercise Tolerance Exercise Tolerance: Metabolic Equivalents>4 Pertinent Negatives Pertinent Negatives: No Symptoms of GERD, No Major Cardiovascular Symptoms or Complaints and No Major Pulmonary Symptoms or Complaints Cardiac & Pulmonary Exam Cardiac Exam: Normal S1/S2 Heart Sounds Pulmonary Exam: Clear Bilateral Breath Sounds Implantable Cardiac Device Does patient have a Pacemaker or an ICD?: No Airway Exam Known Difficult Airway: No Mallampati Class: 2 Mouth Opening: Normal (> 3cm) Thyromental Distance: Greater than 3 cm Neck Range of Motion: Full ROM Neck Circumference: Normal Teeth Condition: Normal Dentition Airway Comments: Bottom tooth implant ASA Classification ASA Score: ASA 2 Emergency Case?: No NPO Status NPO Status: NPO Clears >2 hours, Solids >8 hours Anesthesia Plan Resuscitation Status: Full Code Anesthesia Technique: General Anesthesia Airway Planned: Natural Airway Monitors Used: Standard Monitors
[2022-08-03 12:06] VITALS: BMI 27.8
--- NOTE | 2022-08-03 13:13 | W.PM.DSUDISC ---
Date of service: 08/03/22 Time of Service: 15:34 Discharge Plan Disposition Patient Disposition: Home Condition: Good Discharge Details Reason For Visit: EGD and colonoscopy Attending Provider: Edmundo Fletcher Primary Care Provider: Dannielle Lee Home Meds and New Rx's Prescriptions: Continued lisinopril 20 mg tablet 40 mg PO DAILY amlodipine 5 mg tablet 5 tab PO DAILY Patient Comments: TAKE 1 TABLET BY MOUTH EVERY DAY sucralfate [Carafate] 1 gram tablet 1 g PO QACHS Qty: 120 2RF magnesium oxide 400 mg magnesium tablet 400 mg PO DAILY Qty: 30 0RF Changed pantoprazole 40 mg tablet,delayed release (DR/EC) 40 mg PO DAILY Qty: 30 2RF Rx Instructions: I am changing the dose of this medication from your previous prescription. You should take 1 pill every day Discharge Instructions Additional Instructions: Alpesh, I was able to complete your endoscopies today without any difficulty. As you probably recall, I did see some evidence of inflammation in your stomach. I would like you to continue taking the pantoprazole and Carafate for this. I do think it would be reasonable to decrease the pantoprazole from 2 times per day to 1 time per day. I took several biopsies of your stomach, and I will let you know when I have those results. With regards to your colonoscopy, I removed 2 polyps from the cecum, and I will let you know what type of polyps they are when that report is available. I also saw evidence of an ectasia (small collection of abnormal blood vessels) which I treated with cautery. 1. If tolerated, consume a soft, low fiber diet for 1-2 days. 2[address] Do not drive, drink alcohol, operate machinery, make critical decisions, or do activities that require coordination or balance for 24 hours. 3. Because air was put into your colon during the procedure, expelling air from your rectum (passing gas or farting) is normal. 4. You may not have a bowel movement for 1-3 days because of the colonoscopy prep. This is normal. 5. You may experience a sore throat for 24 to 48 hours. You may use throat lozenges or gargle with warm salt water to relieve the discomfort. 6. Because air was put into your stomach during the procedure, you may experience some belching. 7. Go directly to the emergency room if you notice any of the following: Develop chills (warm to touch), or if you have a thermometer and your temperature is above 101 Difficulty breathing or difficultly swallowing Persistent vomiting Severe abdominal pain, other than gas cramps Severe chest pain Black, tarry stools Any bleeding ? exceeding one tablespoon 8. Call your physician if the site where your intravenous was started becomes red, swollen, painful, and warm to touch. 9. Your physician has reviewed your pre-procedure medications. Please continue to take those medications as previously ordered. You will be given specific information/education regarding any changes to your medications before leaving. Activity:: Activity as Tolerated Diet:: As Tolerated DS: Diagnosis Discharge Diagnosis (1) Screening for colon cancer: Status: Acute Asessment and Plan: Follow-up on pathology reports
--- NOTE | 2022-08-03 13:49 | STOM_PTH ---
PATIENT: Alpesh Clay JR LOC: [facility] U#:[id number] AGE/SX: 76/M ROOM: RE08/03/[address]: Edmundo Fletcher MD : 1945 BED: DIS: 08/03/2022 SPEC #: [id number] RECD: 08/03/22 18:18 STATUS: FRAN RE #: [id number] AISHA: 08/03/22 13:[address]: Edmundo Fletcher DEPT: Surgical Specimen RECD BY: Sunitha Jacome ENTERED: 08/03/22 18:18 SP TYPE: STOMACH OTHR DR: Dannielle Lee Tissues: 1 - STOMACH BIOPSY 2 - STOMACH BIOPSY 3 - BIOPSY BOWEL Procedures: GROSS AND MICRO LEVEL 4 Comments: [id number]
[2022-08-03 14:22] VITALS: BP 107/78; PULSE 68; RESP 16; TEMP 36.4; O2SAT 93
[2022-08-03 14:52] VITALS: BP 127/99; PULSE 67; RESP 16; TEMP 36.9; O2SAT 95
--- NOTE | 2022-08-03 15:02 | W.ANESPOSTOP ---
Postoperative Evaluation Date, Time and Location Date Performed: 08/03/22 Time Performed: 15:14 Patient Location: Day Surgery Unit Vital Signs Most Recent Imported Vital Signs: Most Recent Vital Signs Temp Pulse Resp BP Pulse Ox 36.9 C 67 16 127/99 H 95 08/03/22 14:52 08/03/22 14:52 08/03/22 14:52 08/03/22 14:52 08/03/22 14:52 Pain Score Most Recent Pain Score: Most Recent Pain Score Pain Level 0 08/03/22 14:52 Assessment Mental Status: Awake (Alert & Oriented to Patient Baseline) Airway and Respiratory Function: Patent airway with normal (patient baseline) respiratory exam Cardiovascular Function: Hemodynamically Stable Hydration Status: Adequately Hydrated Nausea & Vomiting: No Nausea or Vomiting Pain: Pt. Denies Any Pain Peripheral Nerve Block: Patient did not receive a nerve block
== END 2022-08-03 15:50 | disposition home or self-care (01) ==
PROVIDERS: PCP Nurse Practitioner Family; Visit Provider Surgery
PROC: (CPT 45384; principal; 2022-08-03 13:00)
DX: Z12.11 Encounter for screening for malignant neoplasm of colon (principal); D64.9 Anemia, unspecified; K29.70 Gastritis, unspecified, without bleeding; K63.5 Polyp of colon; K55.20 Angiodysplasia of colon without hemorrhage
CPT/HCPCS: 45384; 45380; 43239; 00811; 88305

== ENCOUNTER 2022-10-30 23:53 | Emergency (ER) | payer OTHER, SELFPAY ==
--- NOTE | 2022-10-30 23:45 | RT.EKG_ITS ---
APPROVED REPORT Exam: Resting ECG Reason for Exam: bleeding ulcer Patient Location: E HR:69 bpm ECG Measurements Heart Rate 69 AXIS WI 277 P 0 QRSd 93 QRS 11 QT 437 T 38 QTc 461 Conclusion Sinus rhythm...normal P axis, V-rate 60- 99 Atrial premature complexes...SV complexes w/ short R-R intvls Prolonged WI interval...WI >220, V-rate 50- 90 Low voltage, extremity leads...all extremity leads <0.5mV sinus rhythm, normal axis, normal intervals, PAC, non ischemic
[2022-10-30 23:54] VITALS: BP 118/70; PULSE 70; RESP 20; TEMP 36.7; O2SAT 97
[2022-10-30 23:57] VITALS: O2SAT 96
[2022-10-30 23:59] VITALS: BP 125/68; PULSE 67; PULSE 69; RESP 18; O2SAT 98
--- NOTE | 2022-10-30 23:59 | W.ED.GENAD ---
Discharge Plan Disposition Patient Disposition: Home Condition: Improving Discharge Details Chief Complaint: Nausea/Vomit/Diar Clinical Impression: Acute dehydration Primary Care Provider: Dannielle Lee ED Provider: Steve De La Fuente Home Meds and New Rx's Prescriptions: No Action lisinopril 20 mg tablet 40 mg PO DAILY amlodipine 5 mg tablet 5 tab PO DAILY Patient Comments: TAKE 1 TABLET BY MOUTH EVERY DAY pantoprazole 40 mg tablet,delayed release (DR/EC) 40 mg PO DAILY Qty: 30 2RF Rx Instructions: I am changing the dose of this medication from your previous prescription. You should take 1 pill every day sucralfate [Carafate] 1 gram tablet 1 g PO QACHS Qty: 120 2RF magnesium oxide 400 mg magnesium tablet 400 mg PO DAILY Qty: 30 0RF Patient Comments: not taking Discharge Instructions Instructions: Dehydration (ED) Medical Decision Making 77-year-old male history of alcohol use, GI bleed, presents after 1 episode of loose brown stool and upset stomach, no vomiting, no chest pain or shortness of breath. Noted to have soft blood pressure in the field and relative hypoxia that self resolved. Currently asymptomatic feeling better. EKG normal sinus rhythm nonischemic, intermittent PAC. Consider presyncopal vasovagal episode in the setting of bowel movement versus dehydration versus viral syndrome low suspicion for GI bleed given description of stool, lower suspicion for ACS PE pneumonia or other cardiopulmonary process. Trial of fluids, GI cocktail, screening EKG basic labs close reassessment of vital signs and symptoms 3: 36 patient resting comfortably no acute distress. No diarrhea in department. No nausea no vomiting. Denies chest pain or shortness of breath. Noted to be relatively hypoxic on room air hovering around 90%, denies history of smoking denies history of thromboembolic disease or cardiovascular disease. Does not feel short of breath is not tachypneic. EKG nonischemic. Trial of nebs and dexamethasone. Relative soft blood pressure in the high 90s systolic per history further collateral from family and patient has had multiple loose bowel movements over the past 2 days consider component of dehydration. We will continue with fluid hydration 4: 07 oxygen saturation improved and stable around 93%, blood pressure 110 systolic, map of 71, color and symptomatology greatly improved. HPI General Date/Time Provider Initiated Documentation: 10/30/22 23:56. HPI Narrative: 77-year-old male history of alcohol abuse, prior GI bleed, presents after experiencing an upset stomach going to the restroom having a loose bowel movement brown in nature nonbloody nonblack. [place] unwell, girlfriend called 911, per EMS patient initially reluctant for transport however noted to have relatively soft blood pressure as well as brief hypoxia which resolved spontaneously. No chest pain or shortness of breath. Patient feeling comfortable currently. Related Data Home Medications Medication Instructions Recorded Confirmed lisinopril 20 mg tablet 40 mg PO DAILY 06/23/21 10/31/22 amlodipine 5 mg tablet 5 tab PO DAILY 01/02/22 10/31/22 magnesium oxide 400 mg PO DAILY #30 tabs 07/11/22 10/31/22 pantoprazole 40 mg tablet,delayed 40 mg PO DAILY #30 tabs 08/03/22 10/31/22 release sucralfate 1 gram tablet (Carafate) 1 g PO QACHS gastritis #120 tabs 08/03/22 10/31/22 Previous Rx's Medication Instructions Recorded magnesium oxide 400 mg PO DAILY #30 tabs 07/11/22 pantoprazole 40 mg tablet,delayed 40 mg PO DAILY #30 tabs 08/03/22 release sucralfate 1 gram tablet (Carafate) 1 g PO QACHS gastritis #120 tabs 08/03/22 Allergies Allergy/AdvReac Type Severity Reaction Status Date / Time No Known Allergies Allergy Verified 10/30/22 23:59 General Stated Complaint: Nausea/Vomit/Diar SANTINO: 3 Review of Systems Narrative: Review of Systems Constitutional: negative Eyes: negative ENT: negative Cardiovascular: negative Respiratory: negative Gastrointestinal: Loose stool : negative Musculoskeletal: negative Skin: negative Neurologic: negative Psych: negative PFSH All Active Problems (Updated 10/31/22 @ 04:08 by Steve De La Fuente MD) Acute dehydration (Acute) Screening for colon cancer (Acute) Vasovagal attack (Acute) Elevated LFTs (Chronic) Heart murmur previously undiagnosed (Acute) Ulcerative proctitis (Acute) Isolated episode in 2017 Acute upper GI bleed (Acute) Alcohol abuse, daily use (Acute) Daily consumption of alcohol (Chronic) Acute blood loss anemia (Acute) Hypomagnesemia (Chronic) Hyponatremia (Acute) Medical History (Updated 10/31/22 @ 04:08 by Steve De La Fuente MD) Abnormal auditory perception Cerumen impaction Erectile dysfunction History of basal cell cancer History of skin cancer Hyperlipidemia Hypertension Inguinal hernia Keratosis, seborrheic 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, soft tissue, and skin Oral ulceration Surgical History (Updated 08/03/22 @ 11:35 by Osiris Salazar) Hx of colonoscopy S/P total hip resurfacing right hip approx 2005 Social History Smoking/Tobacco Use Status: Never Smoking risk assessment performed?: Yes Alcohol Intake: current Alcohol Intake frequency: 0-2 drinks per day Alcohol type: wine Drug use: Never Substance use type: does not use Do you feel safe at home: Yes Do you feel safe in your relationship?: Yes Exam Narrative Exam Narrative: Physical Examination General: alert, awake, cooperative, resting comfortably, no acute distress HEENT: normocephalic, atraumatic; PERRL, EOM intact, conjunctiva normal; no nasal discharge; moist mucous membranes, oral and pharyngeal mucosa normal, tolerating secretions Neck: supple, trachea midline; full ROM Chest: normal to inspection Respiratory: normal respiratory effort, speaking in full sentences, clear to auscultation, no wheezing, rales or rhonchi Cardiac: regular rate, regular rhythm, S1S2 intact, no murmurs rubs or gallops GI: abdomen soft, non-tender, non-distended; no palpable mass or hepatosplenomegaly Skin: no lesions, rashes or trauma appreciated Neuro: AAOx3, normal speech, moving all extremities Psych: Appropriate mood and affect
[2022-10-31] VITALS (50 sets, daily range): BP systolic 89–123; BP diastolic 46–70; PULSE 67–96; RESP 14–26; O2SAT 90–100
[2022-10-31 00:10] LABS: Abs Immature Grans 0.02 10^3/uL (0.0-0.06); Absolute Basophil Count 0.04 10^3/uL (0.0-0.2); Absolute Eosinophil Count 0.21 10^3/uL (0.0-0.7); Absolute Lymphocyte Count 1.01 10^3/uL (1.2-3.4); Absolute Monocyte Count 0.64 10^3/uL (0.1-0.8); Basophils % 0.9; Eosinophils % 4.8; HCT 37.5 % (40.0-50.0); HGB 13.1 g/dL (13.5-17.5); Immature Grans % 0.5; Lymphocytes % 22.9; MCH 36.7 pg (27.0-33.0); MCHC 34.9 % (32.0-36.0); MCV 105 fL (80-95); MPV 8.3 fL (8.0-11.0); Monocytes % 14.5; Neutrophils % 56.4; Platelet Count 144 10^3/uL (130-400); RBC 3.57 10^6/uL (4.36-5.78); RDW 18.2 % (11.8-14.1); RDW-SD 69.3 fL; WBC 4.42 10^3/uL (4.4-10.8)
[2022-10-31] MEDS: Normal Saline 500 ML 1000 ML IV (00:21)
[2022-10-31] MEDS: Ondansetron 4 MG/2 ML VIAL IVP (00:22)
[2022-10-31] MEDS: Famotidine 20 MG/2 ML VIAL IVP (00:22)
[2022-10-31 00:29] LABS: ALT 49 U/L (16-63); AST 45 U/L (15-37); Albumin 3.4 g/dL (3.4-5.0); Alkaline Phosphatase 84 U/L (46-116); Anion Gap 10.3 mmol/L (3-11); BUN 10 mg/dL (7-18); Bilirubin, Total 0.5 mg/dL (0.2-1.0); CO2 24.7 mmol/L (21.0-32.0); CREATININE 1.1 mg/dL (0.70-1.30); Calcium 8.6 mg/dL (8.5-10.1); Chloride 101 mmol/L (98-107); Estimated GFR 69.14 (mL/min/1.73m2); Glucose 101 mg/dL (74-106); Potassium 3.5 mmol/L (3.5-5.1); Sodium 136 mmol/L (136-145); Total Protein 7.2 g/dL (6.4-8.2)
--- NOTE | 2022-10-31 00:30 | DI.RAD_ITS ---
Exam(s) XR PORTABLE CHEST AP EXAM: XR PORTABLE CHEST AP CLINICAL HISTORY: hypoxia TECHNIQUE: 2D digital imaging was performed of the chest. One image was obtained. An AP view was ob tained. COMPARISON: CR CHEST 2 VIEWS PA,LAT from 05/29/[address] CHEST PE ABD PELVIS W from 07/11/2022 FINDINGS: There is poor inspiration. MEDIASTINUM: Normal. HEART: Normal. PULMONARY VASCULATURE: Normal. LUNGS: There is linear atelectasis in the lung bases. No definite focal consolidating infiltrates ar e seen. PLEURAL SPACE: No pleural effusion or pneumothorax. BONE:Within normal limits for the patient's age. OTHER FINDINGS:There is mild elevation of the right hemidiaphragm. IMPRESSION: No definite focal consolidating infiltrates. Follow-up as clinically appropriate. DATA REPOSITORY: RADIATION DOSE DELIVERED:
[2022-10-31] MEDS: Albuterol/Ipratropium 3 ML UPD VIAL 9 ML UPD (00:55)
--- NOTE | 2022-10-31 02:51 | DI.VRAD_ITS ---
PROCEDURE INFORMATION: Exam: XR Chest Exam date and time: 10/31/2022 12:48 AM Age: 77 years old Clinical indication: Other: Hypoxia TECHNIQUE: Imaging protocol: Radiologic exam of the chest. Views: 1 view. COMPARISON: CT CHEST PE ABD PELVIS W 07/11/2022 3:26 AM FINDINGS: Lungs: Unremarkable. No consolidation. Pleural spaces: Unremarkable. No pleural effusion. No pneumothorax. Heart/Mediastinum: Unremarkable. No cardiomegaly. Bones/joints: Unremarkable. IMPRESSION: No acute findings. Dictated and Authenticated by: Jovan Hay MD. Ordering:YIFAN Wilson MD
[2022-10-31] MEDS: Albuterol 2.5 MG/3 ML INH SOLN VIAL UPD (03:11)
[2022-10-31] MEDS: Dexamethasone 10 MG/ML VIAL IVP (03:11)
[2022-10-31] MEDS: Normal Saline 1,000 ML 1000 ML IV (03:19)
--- NOTE | 2022-10-31 09:23 | NUR.NOTE ---
Nursing Note: Accessed chart to determine orders for EKG and to determine whether or not one needs to be cancelled
== END 2022-10-31 04:33 | disposition home or self-care (01) ==
PROVIDERS: Emergency Provider Emergency Medicine; PCP Nurse Practitioner Family
DX: E86.0 Dehydration (principal); R11.2 Nausea with vomiting, unspecified; R19.7 Diarrhea, unspecified
CPT/HCPCS: 36415; 80053; 93005; 96361; 96374; 96375; 99284; 71045; 85025; 93010; J1100; J2405; J7613; J7620

== ENCOUNTER 2023-05-14 14:06 | Outpatient (REF) | payer OTHER, SELFPAY ==
[2023-05-14 16:58] LABS: Iron 131 ug/dL (65-175); Total Iron Binding Capacity 319 ug/dL (250-450); Transferrin Sat 41 % (20-55)
[2023-05-14 17:28] LABS: ALT 66 U/L (16-63); AST 74 U/L (15-37); Alkaline Phosphatase 94 U/L (46-116); Anion Gap 12.9 mmol/L (3-11); BUN 9 mg/dL (7-18); CO2 25.1 mmol/L (21.0-32.0); CREATININE 0.8 mg/dL (0.70-1.30); Calcium 9.5 mg/dL (8.5-10.1); Calculated LDL 113 mg/dL (<100); Chloride 100 mmol/L (98-107); Cholesterol 242 mg/dL (<200); Estimated GFR 91.15 (mL/min/1.73m2); Ferritin 633 ng/mL (26-388); Folate 4.2 ng/mL (8.6-20.0); Glucose 109 mg/dL (74-106); HDL Cholesterol 118 mg/dL (40-60); Magnesium 1.4 mg/dL (1.8-2.4); Potassium 4.8 mmol/L (3.5-5.1); Sodium 138 mmol/L (136-145); Triglyceride 57 mg/dL (<150); Vitamin B12 199 pg/mL (193-986)
== END 2023-05-14 14:07 | disposition home or self-care (01) ==
LOC: NCHCN 14:06
PROVIDERS: PCP Nurse Practitioner Family; Visit Provider Nurse Practitioner Family
DX: I10 Essential (primary) hypertension (principal); D52.0 Dietary folate deficiency anemia
CPT/HCPCS: 80053; 80061; 84153; 82607; 82728; 82746; 83540; 83550; 83735

== ENCOUNTER → 2023-12-18 01:11 | Outpatient (CLI) | payer OTHER, SELFPAY ==
--- NOTE | 2023-12-18 08:22 | DI.US_ITS ---
Exam(s) US ABDOMEN LIMITED EXAM: US ABDOMEN LIMITED CLINICAL HISTORY: R74.01 Elevation of levels of liver transaminase levels TECHNIQUE: Ultrasound abdomen performed using standard protocol. COMPARISON: US US ABDOMEN LIMITED from 07/11/2022 FINDINGS: PANCREAS: Normal where visualized. LIVER: Increased echogenicity of the liver consistent with fatty infiltration. Hepatopetal flow in t he Portal Vein. The liver measures in 16.7 cm length. No evidence of a hepatic mass. GALLBLADDER: No evidence of cholelithiasis. No evidence of wall thickening. No pericholecystic fluid identified. BILIARY SYSTEM: Common bile duct measures < 7 mm. No intrahepatic biliary ductal dilation. PERRY'S SIGN: Negative. RIGHT KIDNEY: Kidney is normal in size. No evidence of renal calculi. No evidence of hydronephrosis. No renal mass or cyst identified. ASCITES: None seen. IMPRESSION: Fatty infiltration of the liver. DATA REPOSITORY:
== END ==
PROVIDERS: PCP Nurse Practitioner Family; Visit Provider Nurse Practitioner Family
DX: R74.01 Elevation of levels of liver transaminase levels (principal); K76.0 Fatty (change of) liver, not elsewhere classified
CPT/HCPCS: 76705

== ENCOUNTER 2024-03-31 17:48 | Outpatient (REF) | payer OTHER, SELFPAY ==
[2024-03-31 18:54] LABS: HCT 44.5 % (40.0-50.0); HGB 16.2 g/dL (13.5-17.5); MCH 41.2 pg (27.0-33.0); MCHC 36.4 % (32.0-36.0); MCV 113 fL (80-95); MPV 8.9 fL (8.0-11.0); Platelet Count 227 10^3/uL (130-400); RBC 3.93 10^6/uL (4.36-5.78); RDW 13.5 % (11.8-14.1); RDW-SD 56.8 fL
[2024-03-31 19:05] LABS: ALT 69 U/L (16-63); AST 81 U/L (15-37); Albumin 3.4 g/dL (3.4-5.0); Alkaline Phosphatase 119 U/L (46-116); Anion Gap 6.1 mmol/L (3-11); BUN 10 mg/dL (7-18); Bilirubin, Total 0.81 mg/dL (0.2-1.0); CO2 28.9 mmol/L (21.0-32.0); CREATININE 0.9 mg/dL (0.70-1.30); Calcium 9.3 mg/dL (8.5-10.1); Chloride 103 mmol/L (98-107); Estimated GFR 87.42 (mL/min/1.73m2); Glucose 116 mg/dL (74-106); Magnesium 1.7 mg/dL (1.8-2.4); Potassium 4.2 mmol/L (3.5-5.1); Sodium 138 mmol/L (136-145); Total Protein 7.5 g/dL (6.4-8.2)
[2024-04-01 19:48] LABS: Hepatitis C Ab w Rflx HCV PCR Negative (Negative)
== END 2024-03-31 17:49 | disposition home or self-care (01) ==
LOC: NCHCN 17:48
PROVIDERS: PCP Nurse Practitioner Family; Visit Provider Nurse Practitioner Family
DX: R42 Dizziness and giddiness (principal); R74.01 Elevation of levels of liver transaminase levels
CPT/HCPCS: 80053; 85027; 86803; 83735

== ENCOUNTER 2024-08-06 14:12 | Observation (INO) | payer MEDICARE, SELFPAY ==
[2024-08-06] VITALS (17 sets, daily range): BP systolic 96–170; BP diastolic 64–96; PULSE 87–102; RESP 17–33; TEMP 36.2–36.7; O2SAT 91–98
--- NOTE | 2024-08-06 14:15 | DI.CT_ITS ---
Exam(s) CT ABDOMEN PELVIS CTA EXAM: CT ABDOMEN PELVIS CTA CLINICAL HISTORY: abdominal pain, upper and lower gi bleed. TECHNIQUE: Imaging Protocol: Axial computed tomography images with coronal and sagittal reformatted images were created and reviewed CONTRAST MATERIAL: Intravenous: Omnipaque 350 Contrast volume:100 ml Oral: None COMPARISON: CT CT CHEST PE ABD PELVIS W from 07/11/2022 FINDINGS: VISUALIZED LUNG BASES: There is chronic type infiltrate in the right lower lobe posterior basal segme nt. This was previously present on CT images of 07/11/2022 and is slightly decreased in amount from that time. A lesser amount of the same is seen on the opposite-left side same location. There are n o pleural effusions.. Bilateral gynecomastia noted which has increased from 07/11/2022. ABDOMEN: GI: There is no evidence of bowel obstruction, free air, nor abscess and there is no ascites. There are no ischemic appearing bowel loops. No obvious colitis pattern. There is no evidence of intraluminal extravasation of injected IV contrast on the arteriogram phase o f this study. The of venous phase images also reveal no evidence of intraluminal extravasation of in jected contrast. However, on the post injected images there is a focus of rounded enhancement measur ing 7 by 6 by 8 mm within a mid abdominal small bowel loop. This is probably a polyp or other mural lesion at this level. There is another focus of similar well-defined enhancement within a left upper quadrant jejunal loop similar appearance and size, this only evident on the venous phase imaging There are no varices evident around the GE junction nor elsewhere and there is no recanalization of t he umbilical vein. There is no evidence of abdominal aortic aneurysm nor dissection.There is no significant focal aneury smal dilatation of the common iliac arteries.The celiac and superior mesenteric arteries are patent. LIVER: Liver is hypodense implying steatosis but there are no discrete focal hepatic lesions evident. Intrahepatic bile ducts are not dilated. GALLBLADDER/BILIARY: There is some hyperdense bile within the gallbladder lumen. Gallbladder is mild ly distended but not edematous and there is no pericholecystic fluid. The CBD is not dilated. PANCREAS: No evidence of pancreatic mass nor dilatation of the pancreatic duct. SPLEEN: Spleen is not enlarged. There are no intrasplenic lesions. Splenic and portal veins are toled[place] nt. Splenic vein is normal caliber. ADRENALS: There are no significant adrenal masses. KIDNEYS: There is a benign exophytic cyst off the anterior cortex of the right kidney measuring 2.7 x 2.6 cm. There are 2 smaller benign cortical cysts in the opposite-left kidney. These benign cysts do not require further imaging workup. There are no radiopaque calculi in the kidneys and no hydrone phrosis nor hydroureter. No solid renal masses. ABDOMINAL AORTA: The abdominal aorta is not enlarged. LYMPH NODES: There is no retroperitoneal nor para-aortic adenopathy. No obvious mesenteric masses. ABDOMINAL WALL: No evidence of anterior abdominal wall hernia. Fat only containing right inguinal he rnia is again noted. PELVIS: LYMPH NODES: There is no intrapelvic nor inguinal adenopathy. GI: No evidence of appendicitis.Redundant sigmoid without evidence of significant diverticular diseas e. URINARY BLADDER: Urinary bladder wall is diffusely thickened consistent with cystitis. Partially obs cured by beam hardening artifact from right z hip prosthesis. REPRODUCTIVE: Prostate size upper normal. OSSEOUS: There is a right hip prosthesis.. There is advanced disc space narrowing at L5-S1 level. N o listhesis at this level nor elsewhere. Schmorl's node invagination in the superior endplate of L1 is noted. IMPRESSION: 1. There are few well-defined similar size enhancing mural foci in small bowel loops as described abo ve, measuring up to 8 mm. Probable polyps. 2. There is no intraluminal extravasation of injected contrast in the large bowel nor distal to the above described probable small bowel polyps. 3. No evidence of intussusception, bowel obstruction, free air, nor abscess. 4. Fat only containing right inguinal hernias again noted. Report called by myself to ER physician 08/06/2024 at 4:50 p.m. RADIATION DOSE DELIVERED: 1,919.12mGy.cm Total DLP DATA REPOSITORY: All CT scans at this facility are submitted to the National Radiology Data Registry (NRDR) Dose Index Registry (DIR) with the [employer] (ACR). RADIATION OPTIMIZATION: All CT scans at this facility use at least one of these dose optimization te chniques: automated exposure control; mA and/or kV adjustment per patient size (includes targeted exa ms where dose is matched to clinical indication); or iterative reconstruction.
--- NOTE | 2024-08-06 14:28 | ED.GENADUL_ITS ---
Discharge Plan Disposition Patient Disposition: Admit to [facility] Condition: Stable Discharge Details Chief Complaint: GI Bleed Clinical Impression: GI bleed Primary Care Provider: JEN COBOS ED Provider: Kevin Pham Home Meds and New Rx's Prescriptions: No Action sucralfate [Carafate] 1 gram tablet 1 g PO QACHS Qty: 120 2RF HPI General Mode of arrival: ambulatory . Date/Time Provider Initiated Documentation: 08/06/24 14:14 . Limitations to Documentation: no limitations . Information obtained by: patient . History of Present Illness 78 year old M presents to the emergency department with the chief complaint of abdominal pain n/v and diarrhea with blood, described as moderate, Patient started experiencing this day(s) (2) and it has been constant. No relieving factors improve symptom(s), No exacerbating factors reported . Patient notes nausea/vomiting; denies chest pain, fever/chills and shortness of breath. Patient did receive the following treatments prior to arrival, NSAID Related Data Home Medications ?Medication ?Instructions ?Recorded ?Confirmed sucralfate 1 gram tablet (Carafate) 1 g PO QACHS gastritis #120 tabs 08/03/22 08/06/24 Previous Rx's ?Medication ?Instructions ?Recorded sucralfate 1 gram tablet (Carafate) 1 g PO QACHS gastritis #120 tabs 08/03/22 Allergies Allergy/AdvReac Type Severity Reaction Status Date / Time No Known Allergies Allergy Verified 08/06/24 14:20 General Stated Complaint: GI Bleed SANTINO: 3 Review of Systems All systems reviewed & are unremarkable except as noted in HPI and below Constitutional Constitutional: Denies chills and Denies fever(s) Cardiovascular Cardiovascular: Denies chest pain and Denies dyspnea Respiratory Respiratory: Denies cough and Denies dyspnea Gastrointestinal Gastrointestinal: Reports abdominal pain, Reports hematochezia, Reports nausea, Reports vomiting and Reports hematemesis Psychiatric Psychiatric: Denies depression Exam Const General: no acute distress Orientation: alert HENMT Head: normal to inspection Ears: external ears normal General nose exam: external nose normal Mouth: moist mucous membranes Eyes General: appearance normal, both eyes and all related structures Neck Neck: normal visual inspection Resp Effort & Inspection: normal respiratory effort and able to speak in complete sentences Cardio Rate: regular rate GI Palpation: soft, not firm, no guarding and tender Skin General skin exam: no rashes or lesions noted Neuro General: patient alert and patient oriented x3 Extrem General: normal to inspection Psych Mental Status: mental status grossly normal Course Vital Signs Vital signs: Vital Signs Temperature 36.7 C 08/06/24 14:15 Pulse 98 H 08/06/24 14:15 Respiratory Rate 20 08/06/24 14:15 Blood Pressure 104/74 08/06/24 14:15 Pulse Oximetry 98 08/06/24 14:15 Temperature 36.7 C 08/06/24 14:15 Pulse 98 H 08/06/24 14:15 Respiratory Rate 20 08/06/24 14:15 Blood Pressure 104/74 08/06/24 14:15 Blood Pressure Position Sitting 08/06/24 14:15 Pulse Oximetry 98 08/06/24 14:15 Oxygen Delivery Method Room Air 08/06/24 14:15 Oxygen Flow Rate 0 08/06/24 14:15 Medical Decision Making 78-year-old male who states he has 3 glasses of white wine a day, who is hospitalized for GI bleed 2 years ago and had a follow-up endoscopy without significant findings, comes in with 3 days of nausea vomiting and diarrhea and has been taking ibuprofen for symptoms. He states last night he started vomiting blood and has been having diarrhea with bright red blood as well. He is hemodynamically stable on arrival. His abdomen is soft and nondistended but he is tender in the mid abdomen. He denies any chest pain or difficulty breathing. Given his abdominal pain with complaints of vomiting blood and also diarrhea with blood we will check a CBC, CMP, coags and also obtain a CTA of the abdomen pelvis. Patient with mild elevation in LFTs which she has had before and is likely related to his alcohol use. He has no anemia. CTA shows no significant acute findings. There is a question of polyps on the small bowel. No active bleeding. Patient is stable and sleeping on reassessment and awakens easily to voice. His symptoms have resolved. Will to recheck a H and H Patient still stable, hemoglobin did drop by 2.0. His still in the normal range. Discussed results with him and given his mild elevation in BUN as well suspect he does have a upper GI bleed. Will discuss with hospitalist about admission for trending his H&H and potentially an endoscopy. Differential Diagnosis Differential Diagnosis: Ulcer, colitis, gastroenteritis Medical Records Medical records reviewed: Yes I reviewed the patient's medical records. Lab Data Lab results reviewed: Yes I reviewed the patient's lab results. Quality:SDOH Health Related Social Needs: No Data to Display PFSH All Active Problems (Updated 08/06/24 @ 17:38 by Kevin Pham MD) GI bleed (Chronic) Screening for colon cancer (Acute) Vasovagal attack (Acute) Elevated LFTs (Chronic) Heart murmur previously undiagnosed (Acute) Ulcerative proctitis (Acute) Isolated episode in 2017 Acute upper GI bleed (Acute) Alcohol abuse, daily use (Acute) Daily consumption of alcohol (Chronic) Acute blood loss anemia (Acute) Hypomagnesemia (Chronic) Hyponatremia (Acute) Medical History (Updated 08/06/24 @ 17:38 by Kevin Pham MD) Hypertension Hyperlipidemia Erectile dysfunction Inguinal hernia Male pattern baldness History of basal cell cancer History of skin cancer Keratosis, seborrheic Oral ulceration Abnormal auditory perception Cerumen impaction Neoplasm of unspecified behavior of bone, soft tissue, and skin Surgical History (Updated 08/03/22 @ 11:35 by Osiris Salazar) Hx of colonoscopy S/P total hip resurfacing right hip approx 2005 Social History Smoking/Tobacco Use Status: Never Smoking risk assessment performed?: Yes Alcohol Intake: current Alcohol Intake frequency: 0-2 drinks per day Alcohol type: wine Drug use: Never Substance use type: does not use Do you feel safe at home: Yes Do you feel safe in your relationship?: Yes PAWSS Have you Been Recently Intoxicated or Drunk Within the Last 30 days?: No Have you Ever Experienced Previous Episodes of Alcohol Withdrawal?: No Have you ever Experienced Withdrawal Seizures?: No Have you ever Experienced Delirium Tremens(DT)s?: No Have you ever undergone Alcohol Rehabilitation Treatment (i.e, inpt ot outpatient treatment programs)?: No Have you ever Experienced Blackouts?: No Have you ever Combined Alcohol with other Downers within the last 90 days?: No Have you ever Combined Alcohol with any other Substance of Abuse during the last 90 days?: No Positive Blood Alcohol level on Presentation? [PCS.BAL]: No Evidence of Increased Autonomic Activity (i.e. HR>120, tremor, sweating, agitation, nausea)?: No Result: 0
[2024-08-06] MEDS: Droperidol 5 MG/2 ML VIAL 2.5 MG IVP (14:49)
[2024-08-06] MEDS: Pantoprazole 40 MG VIAL IVP ×2 (14:49→21:32)
[2024-08-06 14:51] LABS: Abs Immature Grans 0.04 10^3/uL (0.0-0.06); Absolute Basophil Count 0.04 10^3/uL (0.0-0.2); Absolute Eosinophil Count 0.02 10^3/uL (0.0-0.7); Absolute Lymphocyte Count 0.56 10^3/uL (1.2-3.4); Absolute Monocyte Count 0.78 10^3/uL (0.1-0.8); Absolute Neutrophil Count 6.24 10^3/uL (1.2-6.7); Basophils % 0.5 %; Eosinophils % 0.3 %; HCT 45.5 % (40.0-50.0); HGB 16.5 g/dL (13.5-17.5); Immature Grans % 0.5 %; Lymphocytes % 7.3 %; MCH 39.3 pg (27.0-33.0); MCHC 36.3 % (32.0-36.0); MCV 108 fL (80-95); MPV 8.7 fL (8.0-11.0); Monocytes % 10.2 %; Neutrophils % 81.2 %; Platelet Count 219 10^3/uL (130-400); RDW 14.3 % (11.8-14.1); RDW-SD 57.4 fL; WBC 7.68 10^3/uL (4.4-10.8)
[2024-08-06 15:04] LABS: PTT Activated 26.1 sec (20.6-30.2); Prothrombin Time 10.5 sec (9.1-11.1)
[2024-08-06 15:25] LABS: ALT 67 U/L (16-63); AST 78 U/L (15-37); Albumin 3.6 g/dL (3.4-5.0); Alkaline Phosphatase 143 U/L (46-116); Anion Gap 10.1 mmol/L (3-11); BUN 21 mg/dL (7-18); Bilirubin, Direct 0.6 mg/dL (0.0-0.2); Bilirubin, Total 1.5 mg/dL (0.2-1.0); CO2 27.9 mmol/L (21.0-32.0); CREATININE 0.9 mg/dL (0.70-1.30); Calcium 9.3 mg/dL (8.5-10.1); Chloride 97 mmol/L (98-107); Estimated GFR 87.42 (mL/min/1.73m2); Glucose 118 mg/dL (74-106); Lipase 27 U/L (<78); Magnesium 1.6 mg/dL; Potassium 4.1 mmol/L (3.5-5.1); Sodium 135 mmol/L (136-145); TSH (W/Ref FT4) 2.88 uIU/mL (0.36-3.74); Total Protein 8.3 g/dL (6.4-8.2)
[2024-08-06 15:34] LABS: ETHANOL BLOOD < 3.0 mg/dL (<10)
[2024-08-06] MEDS: Omnipaque 350 MG/ML 100 ML BTL IJ (15:54)
[2024-08-06] MEDS: Normal Saline - Diluent 50 ML VIAL IJ (15:57)
[2024-08-06] MEDS: ACETAMINOPHEN 500 MG/50 ML BAG 200 MG IVPB (16:30)
[2024-08-06 17:07] LABS: HCT 39.9 % (40.0-50.0); HGB 14.4 g/dL (13.5-17.5)
--- NOTE | 2024-08-06 18:43 | W.PM.HP.N ---
Date of service: 08/06/24 Time of Service: 18:43 Assessment and Plan Assessment and plan (1) Acute GI bleeding: Start date: 08/06/24 Status: Acute Assessment and plan: This is a 78-year-old male patient who drinks at least 3 glasses of wine daily and is very active living alone in [place], [place]. 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 He presents with epigastric abdominal pain which now has resolved with IV Protonix for which she was taking daily Aleve which may have caused some GI bleeding. He had to have a similar episode of upper GI bleed in the spring 2022 with a negative EGD. He did drop his hemoglobin 2 g/dL and will be trended overnight with observation on treatment with Protonix. Surgery has been consulted and may consider endoscopies. He has been typed and screened will be transfused if his hemoglobin drops precipitously or if he has increased volume of blood loss which presently appears to have slowed down. He was previously on Carafate with his last hospitalization and has not taken any medication recently. He is essentially asymptomatic at this time. Will continue observation with telemetry and gentle IV hydration. Surgery will follow-up in the morning with recommendations. He is a full code. (2) Hypomagnesemia: Start date: 08/06/24 Status: Acute Assessment and plan: Chronic and recurring with chronic alcohol use on no supplements. (3) Hyponatremia: Start date: 08/06/24 Status: Acute Assessment and plan: Normal recently but in the past had hyponatremia most likely associated with alcohol use. Acute exacerbation with this presentation. Trend labs off alcohol with gentle IV hydration. (4) Alcohol abuse, daily use: Status: Chronic Assessment and plan: Patient drinks wine daily at least 3 glasses and had a negative alcohol level upon admission with no history of having alcohol withdrawals. Monitor and initiate CIWA protocol and treatment if any signs or symptoms of withdrawal. (5) Alcoholic hepatitis without ascites: Status: Chronic Assessment and plan: This appears to be worsening with elevated bilirubin at this time but PT/INR are normal and liver function test are chronically slightly elevated. Monitor while hospitalized. Advised alcohol cessation. (6) Hypertension: Assessment and plan: Not on medical therapy and blood pressure is slightly low with borderline tachycardia with his acute blood loss. Monitor with IV fluids for resuscitation and trend vital signs. History of Present Illness History of Present Illness Chief Complaint: Epigastric pain with vomiting blood and small amount of bloody stool. Narrative: This is a 78-year-old male patient who has a known history of alcohol use daily, drinking 3 glasses of wine. 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 He is . Reported to the ED because of persistent epigastric abdominal pain for couple days with emesis the last day having dark red blood and clots as well as diarrheal stools which are black without bright red blood. He was taking Aleve for his abdominal discomfort in the last couple of days. He was evaluated in the ED with IV hydration and IV Protonix with relief of his abdominal discomfort. He also was given antiemetics. His lab revealed alcoholic hepatitis which appears chronic but progressive now with total bilirubin elevated at 1.5, being normal March 31, 2024, but PT/INR normal. He also has macrocytosis and normal platelets. He has had EGD in the spring 2022 which was negative for esophageal varices and overall unrevealing and was prompted by an upper GI bleed with hospitalization. In the ED he was borderline tachycardic with slightly low blood pressure not on antihypertensives though he does have a history of hypertension. He had no further vomiting in the ED but did have 1 diarrheal stool around 18:00 which had some black blood. His hemoglobin did drop 2 g/dL and he will be admitted for observation trending hemograms. He was typed and screened but has received no blood. He will be watched for alcohol withdrawal. Will trend abnormal labs and replete magnesium which is chronically, intermittently and low most likely from dietary deficiencies and alcohol use. He also is hyponatremic which is new but has occurred in the past most likely associated with alcohol. His abdominal discomfort has improved with treatment in the ED and will not be given NSAIDs. Surgery was consulted through the ED and they are aware of the patient with inpatient consultation ordered. Surgery may want to reconsider EGD or update with patient's alcoholic hepatitis possibly progressing. He was given IV Protonix which will be continued twice daily. The patient is on no medical therapy at this time having received Carafate at his last hospitalization with upper GI bleed. He is a full code. Review of Systems Narrative: 13 point review of systems otherwise unrevealing or stable. PFSH All Active Problems Alcoholic hepatitis without ascites (Chronic) Acute GI bleeding (Acute) Screening for colon cancer (Acute) Vasovagal attack (Acute) Elevated LFTs (Chronic) Heart murmur previously undiagnosed (Acute) Ulcerative proctitis (Acute) Isolated episode in 2017 Acute upper GI bleed (Acute) Alcohol abuse, daily use (Chronic) Daily consumption of alcohol (Chronic) Acute blood loss anemia (Acute) Hypomagnesemia (Acute) Hyponatremia (Acute) Medical History Hypertension Hyperlipidemia Erectile dysfunction Inguinal hernia Male pattern baldness History of basal cell cancer History of skin cancer Keratosis, seborrheic Oral ulceration Abnormal auditory perception Cerumen impaction Neoplasm of unspecified behavior of bone, soft tissue, and skin Surgical History Hx of colonoscopy S/P total hip resurfacing right hip approx 2005 Social History Smoking/Tobacco Use Status: Never Smoking risk assessment performed?: Yes Alcohol Intake: current Alcohol Intake frequency: 0-2 drinks per day Alcohol type: wine Drug use: Never Substance use type: does not use Housing: house Do you feel safe at home: Yes Do you feel safe in your relationship?: Yes Meds Allergies and Home Medications Allergies Allergy/AdvReac Type Severity Reaction Status Date / Time No Known Allergies Allergy Verified 08/06/24 14:20 Home Medications ?Medication ?Instructions ?Recorded ?Confirmed ?Type sucralfate 1 gram tablet (Carafate) 1 g PO QACHS gastritis #120 tabs 08/03/22 08/06/24 Rx Exam Narrative Exam Narrative: General: Patient appears older than stated age and is moderately obese. Alert and oriented x3 and in no acute distress. HEENT: Normocephalic, course and facial features being unshaven, eyes with pupils equal and reactive to light symmetrically, extraocular movement intact and sclera anicteric. Oropharynx with moist mucosa and fair dentition. Some flushing over her cheeks. Neck: Supple without JVD. Lungs: Fair aeration clear to auscultation and percussion. Back: Stooped posture without CVA tenderness. Heart: Regular rate and rhythm with no murmurs or gallops appreciated. Abdomen: Moderately obese contour, soft to palpation with no guarding or tenderness over right upper quadrant and epigastrium. No Peters sign. Bowel sounds positive all quadrants. Genitalia/rectal: Exam deferred. Extremities: Without clubbing, cyanosis or grossly pitting edema. Joints have fair range of motion. Peripheral pulses intact. Skin: Dry, warm, actinic changes over sun exposed areas otherwise normal. No rashes noted. Neuro: Cranial nerves II to XII gross intact, no focal motor deficits. No tremor. Psych: Normal affect and mood. No abnormal thought processes. Remote and recent memory intact. Results Imaging Imaging Studies: EXAM: CT ABDOMEN PELVIS CTA CLINICAL HISTORY: abdominal pain, upper and lower gi bleed. TECHNIQUE: Imaging Protocol: Axial computed tomography images with coronal and sagittal reformatted images were created and reviewed CONTRAST MATERIAL: Intravenous: Omnipaque 350 Contrast volume:100 ml Oral: None COMPARISON: CT CT CHEST PE ABD PELVIS W from 07/11/2022 FINDINGS: VISUALIZED LUNG BASES: There is chronic type infiltrate in the right lower lobe posterior basal segment. This was previously present on CT images of 07/11/2022 and is slightly decreased in amount from that time. A lesser amount of the same is seen on the opposite-left side same location. There are no pleural effusions.. Bilateral gynecomastia noted which has increased from 07/11/2022. ABDOMEN: GI: There is no evidence of bowel obstruction, free air, nor abscess and there is no ascites. There are no ischemic appearing bowel loops. No obvious colitis pattern. There is no evidence of intraluminal extravasation of injected IV contrast on the arteriogram phase of this study. The of venous phase images also reveal no evidence of intraluminal extravasation of injected contrast. However, on the post injected images there is a focus of rounded enhancement measuring 7 by 6 by 8 mm within a mid abdominal small bowel loop. This is probably a polyp or other mural lesion at this level. There is another focus of similar well-defined enhancement within a left upper quadrant jejunal loop similar appearance and size, this only evident on the venous phase imaging There are no varices evident around the GE junction nor elsewhere and there is no recanalization of the umbilical vein. There is no evidence of abdominal aortic aneurysm nor dissection.There is no significant focal aneurysmal dilatation of the common iliac arteries.The celiac and superior mesenteric arteries are patent. LIVER: Liver is hypodense implying steatosis but there are no discrete focal hepatic lesions evident. Intrahepatic bile ducts are not dilated. GALLBLADDER/BILIARY: There is some hyperdense bile within the gallbladder lumen. Gallbladder is mildly distended but not edematous and there is no pericholecystic fluid. The CBD is not dilated. PANCREAS: No evidence of pancreatic mass nor dilatation of the pancreatic duct. SPLEEN: Spleen is not enlarged. There are no intrasplenic lesions. Splenic and portal veins are patent. Splenic vein is normal caliber. ADRENALS: There are no significant adrenal masses. KIDNEYS: There is a benign exophytic cyst off the anterior cortex of the right kidney measuring 2.7 x 2.6 cm. There are 2 smaller benign cortical cysts in the opposite-left kidney. These benign cysts do not require further imaging workup. There are no radiopaque calculi in the kidneys and no hydronephrosis nor hydroureter. No solid renal masses. ABDOMINAL AORTA: The abdominal aorta is not enlarged. LYMPH NODES: There is no retroperitoneal nor para-aortic adenopathy. No obvious mesenteric masses. ABDOMINAL WALL: No evidence of anterior abdominal wall hernia. Fat only containing right inguinal hernia is again noted. PELVIS: LYMPH NODES: There is no intrapelvic nor inguinal adenopathy. GI: No evidence of appendicitis.Redundant sigmoid without evidence of significant diverticular disease. URINARY BLADDER: Urinary bladder wall is diffusely thickened consistent with cystitis. Partially obscured by beam hardening artifact from right z hip prosthesis. REPRODUCTIVE: Prostate size upper normal. OSSEOUS: There is a right hip prosthesis.. There is advanced disc space narrowing at L5-S1 level. No listhesis at this level nor elsewhere. Schmorl's node invagination in the superior endplate of L1 is noted. IMPRESSION: 1. There are few well-defined similar size enhancing mural foci in small bowel loops as described above, measuring up to 8 mm. Probable polyps. 2. There is no intraluminal extravasation of injected contrast in the large bowel nor distal to the above described probable small bowel polyps. 3. No evidence of intussusception, bowel obstruction, free air, nor abscess. 4. Fat only containing right inguinal hernias again noted. Labs 08/06/24 17:03 08/06/24 14:37 Labs: Laboratory Results - last 24 hr 08/06/24 08/06/24 14:37 17:03 WBC 7.68 RBC 4.20 L Hgb 16.5 14.4 D Hct 45.5 39.9 L MCV 108 H MCH 39.3 H MCHC 36.3 H RDW 14.3 H Plt Count 219 MPV 8.7 Immature Gran % 0.5 Neutrophils % 81.2 Lymphocytes % 7.3 Monocytes % 10.2 Eosinophils % 0.3 Basophils % 0.5 Nucleated RBC % 0.0 Absolute Neutrophils 6.24 Absolute Lymphocytes 0.56 L Absolute Monocytes 0.78 Absolute Eosinophils 0.02 Absolute Basophils 0.04 PT 10.5 INR 1.0 APTT 26.1 Sodium 135 L Potassium 4.1 Chloride 97 L Carbon Dioxide 27.9 Anion Gap 10.1 BUN 21 H Creatinine 0.9 Est GFR (CKD-EPI 2020) 87.42 Glucose 118 H Calcium 9.3 Magnesium 1.6 Total Bilirubin 1.5 H Conjugated Bilirubin 0.6 H AST 78 H ALT 67 H Alkaline Phosphatase 143 H Total Protein 8.3 H Albumin 3.6 Lipase 27 TSH 2.88 Ethyl Alcohol < 3.0 ABO/Rh A Positive Antibody Screen NEGATIVE Last Vital Signs Temp 36.7 C 08/06/24 14:15 Pulse 98 H 08/06/24 14:15 Resp 20 08/06/24 14:15 BP 104/74 08/06/24 14:15 Pulse Ox 98 08/06/24 14:15 PAWSS Have you Been Recently Intoxicated or Drunk Within the Last 30 days?: No Have you Ever Experienced Previous Episodes of Alcohol Withdrawal?: No Have you ever Experienced Withdrawal Seizures?: No Have you ever Experienced Delirium Tremens(DT)s?: No Have you ever undergone Alcohol Rehabilitation Treatment (i.e, inpt ot outpatient treatment programs)?: No Have you ever Experienced Blackouts?: No Have you ever Combined Alcohol with other Downers within the last 90 days?: No Have you ever Combined Alcohol with any other Substance of Abuse during the last 90 days?: No Positive Blood Alcohol level on Presentation? [PCS.BAL]: No Evidence of Increased Autonomic Activity (i.e. HR>120, tremor, sweating, agitation, nausea)?: No Result: 0 Time Spent Time spent with Patient: >75 minutes Time was spent: preparing to see the patient(eg.review tests), obtaining and/or reviewing separately otained hiistory, ordering medications,tests, procedures, referring, communicating with other health health care administrator, indepentently interpreting results, counseling the patient and care coordination
[2024-08-06] MEDS: Mylanta Suspension 30 ML CUP PO (19:27)
[2024-08-06 20:16] LABS: COVID-19 PCR Negative (Negative); Influenza A PCR Negative (Negative); Influenza B PCR Negative (Negative); RSV PCR Negative (Negative); Source Nasopharynx
--- NOTE | 2024-08-06 20:22 | W.PC.ACHO ---
Registration Status: Primary Language: Preferred Language: ED Information & Data Chief Complaint GI Bleed 08/06/24 14:29 Triage Note PT reports dark brown/black 08/06/24 14:15 emesis and fecal mater since last night. Utilized ibuprofen (aleve) for pain control for the last several days. Little to no oral intake for the past 3 days. Medical / Surgical History (Last Reviewed 08/06/24 @ 18:56 by Shree Rojo) Hypertension Hyperlipidemia Erectile dysfunction Inguinal hernia Male pattern baldness History of basal cell cancer History of skin cancer Keratosis, seborrheic Oral ulceration Abnormal auditory perception Cerumen impaction Neoplasm of unspecified behavior of bone, soft tissue, and skin (Last Reviewed 08/06/24 @ 18:56 by Shree Rojo) Hx of colonoscopy S/P total hip resurfacing Most Recent Vital Signs Temperature 36.7 C 08/06/24 14:15 Pulse 95 H 08/06/24 18:46 Pulse 94 H 08/06/24 18:30 Respiratory Rate 33 H 08/06/24 18:30 Blood Pressure 143/86 H 08/06/24 18:46 Blood Pressure Mean 94 08/06/24 18:46 Blood Pressure Position Sitting 08/06/24 14:15 Pulse Oximetry 94 08/06/24 18:46 Oxygen Delivery Method Room Air 08/06/24 14:15 Oxygen Flow Rate 0 08/06/24 14:15 Allergies No Known Allergies Allergy (Verified 08/06/24 14:20) Active Medications Generic Name Dose Route Start Last Admin Trade Name Freq PRN Reason Stop Dose Admin Iohexol 100 ml 08/06/24 16:00 08/06/24 15:54 Omnipaque 350 Mg/Ml 100 Ml Btl IJ 09/05/24 23:59 100 ml DIRECTED CARIDAD Administration Sodium Chloride 50 ml 08/06/24 16:00 08/06/24 15:57 Normal Saline - Diluent 50 Ml Vial IJ 50 ml .FOR DI USE CARIDAD Administration IV IV Catheter Type [Right Saline Lock Antecubital] IV Catheter Gauge [Right 18 Antecubital] Diagnostics 08/06/24 08/06/24 08/06/24 Range/Units 19:34 17:03 14:37 WBC 7.68 (4.4-10.8) 10^3/uL RBC 4.20 L (4.36-5.78) 10^6/uL Hgb 14.4 D 16.5 (13.5-17.5) g/dL Hct 39.9 L 45.5 (40.0-50.0) % MCV 108 H (80-95) fL MCH 39.3 H (27.0-33.0) pg MCHC 36.3 H (32.0-36.0) % RDW 14.3 H (11.8-14.1) % Plt Count 219 (130-400) 10^3/uL MPV 8.7 (8.0-11.0) fL Immature Gran % 0.5 % Neutrophils % 81.2 % Lymphocytes % 7.3 % Monocytes % 10.2 % Eosinophils % 0.3 % Basophils % 0.5 % Nucleated RBC % 0.0 (0.0-0.3) % Absolute Neutrophils 6.24 (1.2-6.7) 10^3/uL Absolute Lymphocytes 0.56 L (1.2-3.4) 10^3/uL Absolute Monocytes 0.78 (0.1-0.8) 10^3/uL Absolute Eosinophils 0.02 (0.0-0.7) 10^3/uL Absolute Basophils 0.04 (0.0-0.2) 10^3/uL PT 10.5 (9.1-11.1) sec INR 1.0 (0.9-1.1) APTT 26.1 (20.6-30.2) sec Sodium 135 L (136-145) mmol/L Potassium 4.1 (3.5-5.1) mmol/L Chloride 97 L (98-107) mmol/L Carbon Dioxide 27.9 (21.0-32.0) mmol/L Anion Gap 10.1 (3-11) mmol/L BUN 21 H (7-18) mg/dL Creatinine 0.9 (0.70-1.30) mg/dL Est GFR (CKD-EPI 2020) 87.42 (mL/min/1.73m2) Glucose 118 H (74-106) mg/dL Calcium 9.3 (8.5-10.1) mg/dL Magnesium 1.6 mg/dL Total Bilirubin 1.5 H (0.2-1.0) mg/dL Conjugated Bilirubin 0.6 H (0.0-0.2) mg/dL AST 78 H (15-37) U/L ALT 67 H (16-63) U/L Alkaline Phosphatase 143 H (46-116) U/L Total Protein 8.3 H (6.4-8.2) g/dL Albumin 3.6 (3.4-5.0) g/dL Lipase 27 (<78) U/L TSH 2.88 (0.36-3.74) uIU/mL Ethyl Alcohol < 3.0 (<10) mg/dL COVID-19 Source Nasopharynx SARS-CoV-2 (PCR) Negative (Negative) Influenza Type A (PCR) Negative (Negative) Influenza Type B (PCR) Negative (Negative) RSV (PCR) Negative (Negative) ABO/Rh A Positive Antibody Screen NEGATIVE Intake and Output - 24 Hour Total 08/06/24 14:12 thru 08/06/24 16:45 Intake Total 60 Balance 60 Weight 86.183 kg Intake: IV 60 Falls Risk Assessment History of Falls No History 08/06/24 14:19 Contributing Factors No Factors 08/06/24 14:19 Ambulatory Aids Independent 08/06/24 14:19 Tubes/Lines None 08/06/24 14:19 Gait Evaluation No gait disturbance 08/06/24 14:19 Cognition No cognitive impairment 08/06/24 14:19 Fall Total Score 0 08/06/24 14:19 Level of Risk Standard/Low Risk 08/06/24 14:19 Problems (Last Reviewed 08/06/24 @ 18:56 by Shree Rojo) Alcoholic hepatitis without ascites (Chronic) Acute GI bleeding (Acute) Alcohol abuse, daily use (Chronic) Hypomagnesemia (Acute) Hyponatremia (Acute) v v v v v v v v v Sending and/or Receiving Nurses: Please use comment section below to note any information pertinent to the patient hand-off not included above. Information / Comments:no questions. Report received from:Nicole COSME
--- NOTE | 2024-08-06 20:43 | SCONE_ITS ---
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 However, that would not explain hematemesis. He certainly had some gastritis on his last EGD, but the CT angiogram of the abdomen is a fairly high quality, and I agree that the only real compelling lesions for blood loss appear to be in the small intestine. This is going to make localization quite challenging. I think a typical approach to characterizing these lesions would be capsule endoscopy, which is not available to us here. Alternatively, double-balloon endoscopy, or push enteroscopy in the operating room might be potential options, and I suppose conventional catheter-based angiography might also be able to better delineate the location of these lesions. In that regard, I do not think there is much benefit to EGD or colonoscopy at this point. For now, I think it is reasonable to reinstitute PPI therapy, which I am not entirely sure he is actually using as an outpatient, and see if he has any other clinical signs of bleeding over the next few days. Assuming the bleeding stops and his hemoglobin remained stable, then it probably best served with a referral to [facility] for their advanced endoscopy. If the hemoglobin remains unstable, then I suppose an EGD would probably be reasonable, but ultimately, this might require a higher level of care for diagnostics and treatment History of Present Illness History of Present Illness Chief Complaint: Gastrointestinal bleeding Narrative: Alpesh is 78 years old. He has a past medical history significant for gastrointestinal bleeding. Although he carries a history of ulcerative colitis as documented in a medical note from 2017, he has undergone colonoscopy in 2019 which was normal. He was actually scheduled with me for routine follow-up screening colonoscopy in 2022, with nausea and coffee-ground emesis. At that time, he was hospitalized with a 2 g drop in his hemoglobin. He was started on Protonix and Carafate, and discharged home. He followed up about a month after that and underwent an EGD and a colonoscopy that showed some mild gastritis, colon polyps, and a vascular ectatic lesion in the rectum which was cauterized. Biopsies of the stomach at that time showed reactive gastropathy, with no evidence of any Helicobacter pylori. The colon polyps were tubular adenoma. He comes back today with about 2-1/2 days of mid epigastric abdominal discomfort that he describes as bloating, and a little bit of cramping. This was originally associated with a little bit of nausea. Not long thereafter, he felt that he needed to move his bowels. He reports fairly bright red blood per rectum. A few hours after that he experienced more nausea, and a couple episodes of hematemesis. He tells me that the blood that he vomited was a bit darker in color. Review of Systems Constitutional Constitutional: Reports fatigue and Reports poor appetite Eyes Eyes: Reports system reviewed and no additional complaints, except as documented ENT Ears, Nose, Mouth, and Throat: Reports system reviewed and no additional complaints, except as documented Gastrointestinal Gastrointestinal: Reports bloating, Reports hematochezia, Reports loose stools and Reports hematemesis Genitourinary Genitourinary: Reports system reviewed and no additional complaints, except as documented Endocrine Endocrine: Reports fatigue Hematologic/Lymphatic Hematologic/Lymphatic: Denies easy bleeding and Denies easy bruising PFSH All Active Problems Alcoholic hepatitis without ascites (Chronic) Acute GI bleeding (Acute) Screening for colon cancer (Acute) Vasovagal attack (Acute) Elevated LFTs (Chronic) Heart murmur previously undiagnosed (Acute) Ulcerative proctitis (Acute) Isolated episode in 2017 Acute upper GI bleed (Acute) Alcohol abuse, daily use (Chronic) Daily consumption of alcohol (Chronic) Acute blood loss anemia (Acute) Hypomagnesemia (Acute) Hyponatremia (Acute) Medical History Hypertension Hyperlipidemia Erectile dysfunction Inguinal hernia Male pattern baldness History of basal cell cancer History of skin cancer Keratosis, seborrheic Oral ulceration Abnormal auditory perception Cerumen impaction Neoplasm of unspecified behavior of bone, soft tissue, and skin Surgical History Hx of colonoscopy S/P total hip resurfacing right hip approx 2005 Social History Smoking/Tobacco Use Status: Never Smoking risk assessment performed?: Yes Alcohol Intake: current Alcohol Intake frequency: 0-2 drinks per day Alcohol type: wine Drug use: Never Substance use type: does not use Housing: house Do you feel safe at home: Yes Do you feel safe in your relationship?: Yes Exam Const General: cooperative, comfortable and no acute distress Orientation: alert, awake and oriented x3 GI Inspection: non-distended and large pannus Palpation: soft, no guarding and nontender Auscultation: normal bowel sounds Results Last Vital Signs Temp 98.0 F 08/06/24 14:15 Pulse 92 H 08/06/24 20:21 Resp 19 08/06/24 20:21 BP 115/64 08/06/24 20:21 Pulse Ox 94 08/06/24 20:21 Labs 08/06/24 21:05 08/06/24 14:37 Labs: Laboratory Results - last 24 hr 08/06/24 08/06/24 08/06/24 14:37 17:03 19:34 WBC 7.68 RBC 4.20 L Hgb 16.5 14.4 D Hct 45.5 39.9 L MCV 108 H MCH 39.3 H MCHC 36.3 H RDW 14.3 H Plt Count 219 MPV 8.7 Immature Gran % 0.5 Neutrophils % 81.2 Lymphocytes % 7.3 Monocytes % 10.2 Eosinophils % 0.3 Basophils % 0.5 Nucleated RBC % 0.0 Absolute Neutrophils 6.24 Absolute Lymphocytes 0.56 L Absolute Monocytes 0.78 Absolute Eosinophils 0.02 Absolute Basophils 0.04 PT 10.5 INR 1.0 APTT 26.1 Sodium 135 L Potassium 4.1 Chloride 97 L Carbon Dioxide 27.9 Anion Gap 10.1 BUN 21 H Creatinine 0.9 Est GFR (CKD-EPI 2020) 87.42 Glucose 118 H Calcium 9.3 Magnesium 1.6 Total Bilirubin 1.5 H Conjugated Bilirubin 0.6 H AST 78 H ALT 67 H Alkaline Phosphatase 143 H Total Protein 8.3 H Albumin 3.6 Lipase 27 TSH 2.88 Ethyl Alcohol < 3.0 COVID-19 Source Nasopharynx SARS-CoV-2 (PCR) Negative Influenza Type A (PCR) Negative Influenza Type B (PCR) Negative RSV (PCR) Negative ABO/Rh A Positive Antibody Screen NEGATIVE Imaging Abdomen CT scan report/results: report reviewed and image reviewed CT scan - pelvis: report reviewed and image reviewed
[2024-08-06 21:11] LABS: HCT 39.7 % (40.0-50.0); HGB 14.5 g/dL (13.5-17.5); MCH 39.6 pg (27.0-33.0); MCHC 36.5 % (32.0-36.0); MCV 109 fL (80-95); MPV 8.3 fL (8.0-11.0); Platelet Count 183 10^3/uL (130-400); RBC 3.66 10^6/uL (4.36-5.78); RDW 14.3 % (11.8-14.1); RDW-SD 57.5 fL; WBC 7.86 10^3/uL (4.4-10.8)
[2024-08-06] MEDS: Normal Saline 1,000 ML 125 ML IV (21:33)
[2024-08-06] MEDS: MAGNESIUM SULFATE 2 GM/50 ML BAG IV_INF (21:33)
[2024-08-07] VITALS (8 sets, daily range): BP systolic 100–170; BP diastolic 59–90; PULSE 66–79; RESP 16–20; TEMP 36.5–37; O2SAT 90–97
[2024-08-07 00:50] LABS: HGB 13.5 g/dL (13.5-17.5); MCH 38.7 pg (27.0-33.0); MCHC 35.5 % (32.0-36.0); MCV 109 fL (80-95); MPV 8.7 fL (8.0-11.0); Platelet Count 180 10^3/uL (130-400); RBC 3.49 10^6/uL (4.36-5.78); RDW 14.4 % (11.8-14.1); RDW-SD 57.5 fL; WBC 6.97 10^3/uL (4.4-10.8)
[2024-08-07 05:13] LABS: HCT 38.3 % (40.0-50.0); HGB 13.5 g/dL (13.5-17.5); MCH 39.4 pg (27.0-33.0); MCHC 35.2 % (32.0-36.0); MCV 112 fL (80-95); MPV 8.7 fL (8.0-11.0); Platelet Count 185 10^3/uL (130-400); RBC 3.43 10^6/uL (4.36-5.78); RDW 14.5 % (11.8-14.1); RDW-SD 59.4 fL; WBC 6.75 10^3/uL (4.4-10.8)
[2024-08-07 05:32] LABS: ALT 47 U/L (16-63); AST 55 U/L (15-37); Albumin 2.8 g/dL (3.4-5.0); Alkaline Phosphatase 113 U/L (46-116); Anion Gap 7.7 mmol/L (3-11); BUN 19 mg/dL (7-18); Bilirubin, Total 1.3 mg/dL (0.2-1.0); CO2 31.3 mmol/L (21.0-32.0); CREATININE 0.9 mg/dL (0.70-1.30); Calcium 8.5 mg/dL (8.5-10.1); Chloride 101 mmol/L (98-107); Estimated GFR 87.42 (mL/min/1.73m2); Glucose 93 mg/dL (74-106); Magnesium 2.3 mg/dL; Potassium 3.8 mmol/L (3.5-5.1); Sodium 140 mmol/L (136-145); Total Protein 6.6 g/dL (6.4-8.2)
[2024-08-07 05:45] LABS: Prothrombin Time 10.4 sec (9.1-11.1)
[2024-08-07 05:52] LABS: Bilirubin, Direct 0.6 mg/dL (0.0-0.2)
[2024-08-07] MEDS: Normal Saline 1,000 ML 125 ML IV ×2 (05:54→15:10)
[2024-08-07 06:34] LABS: Bilirubin Small (Negative); Blood Negative (Negative); Clarity Clear (Clear); Glucose Negative (Negative); Ketones 40 mg/dL (Negative); Leukocyte Esterase Negative (Negative); Nitrite Negative (Negative); Urobilinogen 0.2 mg/dL (Up to 0.2)
--- NOTE | 2024-08-07 08:42 | INITIAL_ITS ---
Date of service: 08/07/24 Time of Service: 08:42 Care Management Initial Assmt Initial Assessment Reason for Hospitalization: Gi Bleeding Functional Status/Living Situation Patient Presentation: Alpesh was sitting up in bed when CM met with him. He was pleasant in manner and agreeable to conversation. Alpesh was admitted with a GI Bleed. He has had coffee ground emesis and also a dark stool. From imaging, it is not clear where the bleeding is coming from, although the surgeon feels that it is most likely from his small intestine. No interventions are planned for the time being but he will be monitored and observed for a while longer with serial bloodwork. Alpesh's H&H are fairly stable at around 13.3 and 38 and transfusion has not been indicated. Alpesh lives alone in a single family home in [place]. He is but remains friends with his ex-. Alpesh is from [facility] but has lived in [place] for the past 20 years and has been visiting since the . 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 He has one son who is but has no children and lives in [place]. Alpesh is independent with ADLs and IADLs at baseline and does not receive any community services. 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[employer]) Instrumental Activities of Daily Living (ADLs): Independent Medications Medication Management: No Issues/Barriers identified Physical Functioning/Mobility Assistive Device: none Advance Directives Advance Directives: Do you have an Advance Directive: Y 05/29/17 10:49 AD On File at [facility]: N 05/29/17 10:49 Date Asked 03/31/24 03/31/24 17:49 AD Date Reviewed 08/06/24 08/06/24 19:50 COLST On File at [facility] COLST Date Scanned Code Status Resuscitation Status Full Code Portal Pt does not currently have a portal and education provided: Yes Insurance Coverage/Financial Issues Insurance: [employer] Medicare Replacement Care Team Visit Care Team Role Provider Type Harjeet Bajwa MD MD [facility] STAFF PHYSICIAN JEN COBOS, LALY Primary Care Provider NON-[facility] STAFF PHYSICIAN Edmundo Fletcher MD Other Providers [facility] STAFF PHYSICIAN Kevin Pham MD Emergency Provider [facility] STAFF PHYSICIAN Shree Rojo Admit Provider NON-[facility] STAFF PHYSICIAN Attending Provider Discharge Potential Discharge Needs: PCP F/U Appt and Surgical F/U Appt Anticipated Barriers to Discharge: None Identified Patient/Family Education Needs: Review discharge instructions, discuss Ask Me Three Transportation: Private vehicle Plan: Anticipate Alpesh will be discharged home with no new services. He will follow up with the PCP and plan of care and transport via private vehicle. CM will follow and continue to support discharge planning efforts. Social Determinants of Health Screening Social Determinants of Health last assessed: 08/07/24 Will the Patient Participate in the Screening?: Declined to provide Do you worry about having a steady place to live?: no Problems where you live: no known problems In the past 12 months, have you had to go without electric, gas, oil or water in your home?: no Have you or anyone in your house had to go without enough food to eat?: no Has lack of transportation kept you from medical appointments or from doing things needed for daily living?: no Has anyone in your life made you feel unsafe or unsupported?: no How hard is it for you to pay for the very basics like food, housing, medical care, and heating? Would you say it is:: Not hard at all Do you want help finding or keeping work or a job?: I do not need or want help If for any reason you need help with day-to-day activities such as bathing, preparing meals, shopping, managing finances, etc., do you get the help you need?: I don?t need any help How often do you feel lonely or isolated from those around you?: Sometimes Do you speak a language other than Japanese at home?: No Health Related Social Needs Health related social needs: feeling lonely/isolated (Z60.8) [facility] All Active Problems Alcoholic hepatitis without ascites (Chronic) Acute GI bleeding (Acute) Screening for colon cancer (Acute) Vasovagal attack (Acute) Elevated LFTs (Chronic) Heart murmur previously undiagnosed (Acute) Ulcerative proctitis (Acute) Isolated episode in 2017 Acute upper GI bleed (Acute) Alcohol abuse, daily use (Chronic) Daily consumption of alcohol (Chronic) Acute blood loss anemia (Acute) Hypomagnesemia (Acute) Hyponatremia (Acute) Medical History Hypertension Hyperlipidemia Erectile dysfunction Inguinal hernia Male pattern baldness History of basal cell cancer History of skin cancer Keratosis, seborrheic Oral ulceration Abnormal auditory perception Cerumen impaction Neoplasm of unspecified behavior of bone, soft tissue, and skin Surgical History Hx of colonoscopy S/P total hip resurfacing right hip approx 2005 Social History Smoking/Tobacco Use Status: Never Smoking risk assessment performed?: Yes Alcohol Intake: current Alcohol Intake frequency: 0-2 drinks per day Alcohol type: wine Drug use: Never Substance use type: does not use Housing: house Do you feel safe at home: Yes Do you feel safe in your relationship?: Yes
[2024-08-07 08:58] LABS: HCT 37.6 % (40.0-50.0); HGB 13.3 g/dL (13.5-17.5); MCH 39.2 pg (27.0-33.0); MCHC 35.4 % (32.0-36.0); MPV 8.5 fL (8.0-11.0); Platelet Count 173 10^3/uL (130-400); RBC 3.39 10^6/uL (4.36-5.78); RDW 14.5 % (11.8-14.1); RDW-SD 59.6 fL; WBC 6.52 10^3/uL (4.4-10.8)
[2024-08-07 09:09] LABS: MCV 111 fL (80-95)
[2024-08-07] MEDS: Normal Saline Flush 10 ML SYR IVP (09:10)
[2024-08-07] MEDS: Pantoprazole 40 MG VIAL IVP ×2 (09:10→20:59)
--- NOTE | 2024-08-07 16:44 | PGE_ITS ---
Date of Service Date of service: 08/07/24 Time of Service: 16:44 Assessment and Plan Assessment and plan (1) Acute GI bleeding: Start date: 08/06/24 Status: Acute Assessment and plan: -Presumed due to upper GI bleed as patient has been taking Aleve for pain and -Bleeding has since stopped since admission and hemoglobin has stabilized in the mid 13s -Seen by general surgery and did not believe that patient would benefit from endoscopy, though if GI bleed recurs felt that patient would need capsule endoscopy or double-balloon endoscopy or push enteroscopy all of which would need to be done at outside facility next -Had been on IV Protonix, will transition to p.o. (2) Hypomagnesemia: Start date: 08/06/24 Status: Acute Assessment and plan: -Chronic and recurring with chronic alcohol use on no supplements. (3) Alcohol abuse, daily use: Status: Chronic Assessment and plan: -Patient drinks wine daily at least 3 glasses and had a negative alcohol level upon admission -Initial CIWA's negative, and have since been discontinued (4) Alcoholic hepatitis without ascites: Status: Chronic Assessment and plan: - Bilirubin 1.5 at admission -Down to 1.3 on the morning of 08/07/2024 -Will follow-up a.m. CMP (5) Hypertension: Assessment and plan: -Not on medical therapy and has been normotensive during this hospitalization Subjective Subjective Interval history since last seen: Patient states that he is feeling better today but is a little anxious and concerned regarding his bleeding. We decided that we would continue to monitor his hemoglobin overnight and that he would likely be discharged tomorrow morning 08/08/2024. Exam Narrative Exam Narrative: Well-appearing older gentleman laying in bed in no acute distress, ANO x 4, heart regular rhythm, lungs clear to auscultation bilaterally, abdomen soft, nontender, nondistended Objective Last Vital Signs Temp 98.6 F 08/07/24 12:23 Pulse 68 08/07/24 12:23 Resp 16 08/07/24 12:23 BP 130/84 08/07/24 12:23 Pulse Ox 90 L 08/07/24 12:23 Laboratory Results - last 24 hr 08/06/24 08/06/24 08/06/24 17:03 19:34 21:05 WBC 7.86 RBC 3.66 L Hgb 14.4 D 14.5 Hct 39.9 L 39.7 L MCV 109 H MCH 39.6 H MCHC 36.5 H RDW 14.3 H Plt Count 183 MPV 8.3 PT INR Sodium Potassium Chloride Carbon Dioxide Anion Gap BUN Creatinine Est GFR (CKD-EPI 2020) Glucose Calcium Magnesium Total Bilirubin Conjugated Bilirubin AST ALT Alkaline Phosphatase Total Protein Albumin Urine Color Urine Clarity Urine pH Ur Specific [place] Urine Protein Urine Ketones Urine Blood Urine Nitrite Urine Bilirubin Urine Urobilinogen Ur Leukocyte Esterase Urine Glucose COVID-19 Source Nasopharynx SARS-CoV-2 (PCR) Negative Influenza Type A (PCR) Negative Influenza Type B (PCR) Negative RSV (PCR) Negative 08/07/24 08/07/24 08/07/24 00:45 04:45 06:13 WBC 6.97 6.75 RBC 3.49 L 3.43 L Hgb 13.5 13.5 Hct 38.0 L 38.3 L MCV 109 H 112 H MCH 38.7 H 39.4 H MCHC 35.5 35.2 RDW 14.4 H 14.5 H Plt Count 180 185 MPV 8.7 8.7 PT 10.4 INR 1.0 Sodium 140 Potassium 3.8 Chloride 101 Carbon Dioxide 31.3 Anion Gap 7.7 BUN 19 H Creatinine 0.9 Est GFR (CKD-EPI 2020) 87.42 Glucose 93 Calcium 8.5 Magnesium 2.3 Total Bilirubin 1.3 H Conjugated Bilirubin 0.6 H AST 55 H ALT 47 Alkaline Phosphatase 113 Total Protein 6.6 Albumin 2.8 L Urine Color Yellow Urine Clarity Clear Urine pH 6.0 Ur Specific [place] 1.010 Urine Protein Trace Urine Ketones 40 H Urine Blood Negative Urine Nitrite Negative Urine Bilirubin Small H Urine Urobilinogen 0.2 Ur Leukocyte Esterase Negative Urine Glucose Negative COVID-19 Source SARS-CoV-2 (PCR) Influenza Type A (PCR) Influenza Type B (PCR) RSV (PCR) 08/07/24 08:50 WBC 6.52 RBC 3.39 L Hgb 13.3 L Hct 37.6 L MCV 111 H MCH 39.2 H MCHC 35.4 RDW 14.5 H Plt Count 173 MPV 8.5 PT INR Sodium Potassium Chloride Carbon Dioxide Anion Gap BUN Creatinine Est GFR (CKD-EPI 2020) Glucose Calcium Magnesium Total Bilirubin Conjugated Bilirubin AST ALT Alkaline Phosphatase Total Protein Albumin Urine Color Urine Clarity Urine pH Ur Specific [place] Urine Protein Urine Ketones Urine Blood Urine Nitrite Urine Bilirubin Urine Urobilinogen Ur Leukocyte Esterase Urine Glucose COVID-19 Source SARS-CoV-2 (PCR) Influenza Type A (PCR) Influenza Type B (PCR) RSV (PCR) PAWSS Have you Been Recently Intoxicated or Drunk Within the Last 30 days?: No Have you Ever Experienced Previous Episodes of Alcohol Withdrawal?: No Have you ever Experienced Withdrawal Seizures?: No Have you ever Experienced Delirium Tremens(DT)s?: No Have you ever undergone Alcohol Rehabilitation Treatment (i.e, inpt ot outpatient treatment programs)?: No Have you ever Experienced Blackouts?: No Have you ever Combined Alcohol with other Downers within the last 90 days?: No Have you ever Combined Alcohol with any other Substance of Abuse during the last 90 days?: No Positive Blood Alcohol level on Presentation? [PCS.BAL]: No Evidence of Increased Autonomic Activity (i.e. HR>120, tremor, sweating, agitation, nausea)?: No Result: 0 Time Spent with Patient Time Spent with Patient: >50 minutes Time was spent: preparing to see the patient(eg.review tests), obtaining and/or reviewing separately otained hiistory, ordering medications,tests, procedures, referring, communicating with other health aged or disabled carer, indepentently interpreting results, counseling the patient and care coordination
--- NOTE | 2024-08-07 16:51 | PHA.REVIEW2 ---
Pharmacy Admission Review Admission Clinical Review Admission Pharmacy Review: Acute GI bleeding (Acute) Hypomagnesemia (Acute) Hyponatremia (Acute) No Known Allergies Allergy (Verified 08/06/24 14:20) Resuscitation Status Full Code Height 5 ft 9 in Weight 90.5 kg Comments Comments/Follow Ups: Watch VS, H/H, labs and for med changes. Pharmacy Admission Review Renal Dosing Renal Dosing: BUN 19 mg/dL (7-18) H 08/07/24 04:45 Creatinine 0.9 mg/dL (0.70-1.30) 08/07/24 04:45 Medications needing adjustments: Reviewed (Crcl ~67.7 mL/min current meds are okay) Anticoagulation Anticoagulation: Hgb 13.3 g/dL (13.5-17.5) L 08/07/24 08:50 Hct 37.6 % (40.0-50.0) L 08/07/24 08:50 Plt Count 173 10^3/uL (130-400) 08/07/24 08:50 INR 1.0 (0.9-1.1) 08/07/24 04:45 Creatinine 0.9 mg/dL (0.70-1.30) 08/07/24 04:45 DVT Prophylaxis: Reviewed (Has SCDs ordered) Opiate Usage Evaluate Pain Scale/Pains Meds: N/A Relevant Labs Relevant Labs: Sodium 140 mmol/L (136-145) 08/07/24 04:45 Potassium 3.8 mmol/L (3.5-5.1) 08/07/24 04:45 Chloride 101 mmol/L (98-107) 08/07/24 04:45 Magnesium 2.3 mg/dL 08/07/24 04:45 Electrolytes, C-Reactive P, ESR: Reviewed DM Control DM Control: Glucose 93 mg/dL (74-106) 08/07/24 04:45 DM Control: Reviewed (No DM in pt's medical history, no A1c on file) Cardiac Review BP, HR, EF%: Reviewed (BP has been low to normal and HR has been within normal limits so far today) QTc Review QTc: N/A IV to PO Switch IV Medications: Reviewed Home Meds Home Med List reviewed: Reviewed Relevent Home Meds Not ordered & why?: sucralfate- listed on home med list but patient has not taken any medication recently per H&P Current Meds Current Medication Order Review: Reviewed Comments Comments/Follow Ups: Watch VS, H/H, labs and for med changes.
[2024-08-07] MEDS: Acetaminophen 325 MG TAB 650 MG PO (18:03)
[2024-08-08 00:01] VITALS: BP 160/110
[2024-08-08 01:34] VITALS: BP 148/90
[2024-08-08 06:41] LABS: HCT 35.5 % (40.0-50.0); HGB 12.6 g/dL (13.5-17.5); MCH 39.4 pg (27.0-33.0); MCHC 35.5 % (32.0-36.0); MCV 111 fL (80-95); MPV 8.3 fL (8.0-11.0); Platelet Count 155 10^3/uL (130-400); RDW 13.7 % (11.8-14.1); RDW-SD 56.8 fL; WBC 5.53 10^3/uL (4.4-10.8)
[2024-08-08 06:46] LABS: Prothrombin Time 10.4 sec (9.1-11.1)
[2024-08-08 07:00] LABS: ALT 48 U/L (16-63); AST 58 U/L (15-37); Albumin 2.7 g/dL (3.4-5.0); Alkaline Phosphatase 104 U/L (46-116); Anion Gap 7.8 mmol/L (3-11); BUN 7 mg/dL (7-18); Bilirubin, Total 1.2 mg/dL (0.2-1.0); CO2 26.2 mmol/L (21.0-32.0); CREATININE 0.8 mg/dL (0.70-1.30); Calcium 8.5 mg/dL (8.5-10.1); Chloride 103 mmol/L (98-107); Estimated GFR 90.58 (mL/min/1.73m2); Glucose 96 mg/dL (74-106); Potassium 3.7 mmol/L (3.5-5.1); Sodium 137 mmol/L (136-145); Total Protein 6.3 g/dL (6.4-8.2)
[2024-08-08 07:02] LABS: ALT 48 U/L (16-63); AST 59 U/L (15-37); Albumin 2.7 g/dL (3.4-5.0); Alkaline Phosphatase 106 U/L (46-116); Bilirubin, Direct 0.5 mg/dL (0.0-0.2); Bilirubin, Total 1.2 mg/dL (0.2-1.0); Magnesium 1.7 mg/dL; Total Protein 6.4 g/dL (6.4-8.2)
[2024-08-08 07:16] VITALS: BP 153/88; PULSE 76; RESP 18; TEMP 37.2; O2SAT 92
[2024-08-08] MEDS: Normal Saline Flush 10 ML SYR IVP (07:27)
[2024-08-08] MEDS: Acetaminophen 325 MG TAB 650 MG PO (09:09)
--- NOTE | 2024-08-08 09:25 | W.PM.DS.N ---
Date of service: 08/08/24 Time of Service: 09:26 DS: Diagnosis Discharge Diagnosis (1) Acute GI bleeding: Status: Acute (2) Hypomagnesemia: Status: Acute (3) Alcohol abuse, daily use: Status: Chronic (4) Alcoholic hepatitis without ascites: Status: Chronic (5) Hypertension: Discharge Plan Disposition Patient Disposition: Home Condition: Good Discharge Details Reason For Visit: ACute Gi Bleed,Alcohol abuse,Alcoholic hepatitis Admit Date/Time: 08/06/24 19:22 Admit Provider: Shree Rojo Attending Provider: Shree Rojo Primary Care Provider: JEN COBOS Home Meds and New Rx's Prescriptions: New pantoprazole [Protonix] 40 mg tablet,delayed release (DR/EC) 40 mg PO DAILY Qty: 90 0RF Continued sucralfate [Carafate] 1 gram tablet 1 g PO QACHS Qty: 120 2RF Discharge Instructions Activity:: Activity as Tolerated Equipment/Supplies:: No Equipment Needed Diet:: As Tolerated Discharge Orders Discharge Orders: Discharge Order (Routine); Ordered 08/08/24 Ordered By: Harjeet Bajwa DS: Summary Time Spent with Patient providing and/or coordinating discharge services: Greater than 30 minutes Status at Discharge Functional status at discharge: independent ambulation Overall status at discharge: patient is back to baseline Mental Status: mental status grossly normal Speech and Movement: speech and movement normal Mood: congruent mood Affect: normal affect Quality:SDOH Health Related Social Needs: Health related social needs feeling lonely/isolated (Z60.8) Exam Narrative Exam Narrative: Well-appearing older gentleman laying in bed in no acute distress, ANO x 4, heart regular rhythm, lungs clear to auscultation bilaterally, abdomen soft, nontender, nondistended Psych Mental Status: mental status grossly normal Speech and Movement: speech and movement normal Mood: congruent mood Affect: normal affect DS: Data Vitals/I&O Vitals and I&O: Vital Signs Temperature 99.0 F 08/08/24 07:16 Temperature Source Temporal Artery Scan 08/08/24 07:16 Pulse 76 08/08/24 07:16 Pulse 94 H 08/06/24 18:30 Respiratory Rate 18 08/08/24 07:16 Respiratory Effort Normal 08/06/24 21:04 Respiratory Depth Normal 08/06/24 21:04 Respiratory Pattern Normal 08/06/24 21:04 Blood Pressure 153/88 H 08/08/24 07:16 Blood Pressure Mean 94 08/06/24 18:46 Blood Pressure Position Sitting 08/06/24 14:15 Pulse Oximetry 92 08/08/24 07:16 Oxygen Delivery Method Room Air 08/08/24 07:16 Oxygen Flow Rate 0 08/08/24 07:16 Pain Level 0 08/08/24 07:26 Comment patient asked to not be woken up at 3am for vitals 08/08/24 03:06 Intake & Output 08/07/24 08/08/24 08/08/24 17:59 05:59 17:59 Intake Total 1010 / 1010 999 250 / 250 Output Total 900 / 900 1250 / 2150 Balance 110 / 110 -250 / -140 250 / 250 Weight 199 lb 8.293 oz 202 lb 2.622 oz Intake: IV 1010 / 1010 999 10 / 10 Oral 240 / 240 Output: Urine 900 / 900 1250 / 2150 Other: Urine Color [place] Straw Yellow Urine Appearance Clear Clear Urine Odor Strong Normal Comment Patient voided into urinal ind. Data Completed and Pending Labs on day of discharge: Labs from last 24 hours 08/08/24 08/08/24 08/08/24 06:23 06:23 06:23 WBC RBC Hgb Hct MCV MCH MCHC RDW Plt Count MPV PT INR Sodium Potassium Chloride Carbon Dioxide Anion Gap BUN Creatinine Est GFR (CKD-EPI 2020) Glucose Calcium Magnesium Total Bilirubin Conjugated Bilirubin AST ALT Alkaline Phosphatase 104 Total Protein 6.3 L 6.4 Albumin 2.7 L 2.7 L 08/08/24 08/08/24 08/08/24 06:23 06:23 06:23 WBC RBC Hgb Hct MCV MCH MCHC RDW Plt Count MPV PT INR Sodium Potassium Chloride Carbon Dioxide Anion Gap BUN Creatinine Est GFR (CKD-EPI 2020) Glucose Calcium Magnesium Total Bilirubin 1.2 H Conjugated Bilirubin 0.5 H AST 58 H 59 H ALT 48 48 Alkaline Phosphatase 106 Total Protein Albumin 08/08/24 08/08/24 06:23 05:35 WBC 5.53 RBC 3.20 L Hgb 12.6 L Hct 35.5 L MCV 111 H MCH 39.4 H MCHC 35.5 RDW 13.7 Plt Count 155 MPV 8.3 PT 10.4 INR 1.0 Sodium 137 Cancelled Potassium 3.7 Cancelled Chloride 103 Cancelled Carbon Dioxide 26.2 Cancelled Anion Gap 7.8 Cancelled BUN 7 Cancelled Creatinine 0.8 Cancelled Est GFR (CKD-EPI 2020) 90.58 Cancelled Glucose 96 Cancelled Calcium 8.5 Cancelled Magnesium 1.7 Total Bilirubin 1.2 H Conjugated Bilirubin AST ALT Alkaline Phosphatase Total Protein Albumin PFSH All Active Problems Alcoholic hepatitis without ascites (Chronic) Acute GI bleeding (Acute) Screening for colon cancer (Acute) Vasovagal attack (Acute) Elevated LFTs (Chronic) Heart murmur previously undiagnosed (Acute) Ulcerative proctitis (Acute) Isolated episode in 2017 Acute upper GI bleed (Acute) Alcohol abuse, daily use (Chronic) Daily consumption of alcohol (Chronic) Acute blood loss anemia (Acute) Hypomagnesemia (Acute) Hyponatremia (Acute) Medical History Hypertension Hyperlipidemia Erectile dysfunction Inguinal hernia Male pattern baldness History of basal cell cancer History of skin cancer Keratosis, seborrheic Oral ulceration Abnormal auditory perception Cerumen impaction Neoplasm of unspecified behavior of bone, soft tissue, and skin Surgical History Hx of colonoscopy S/P total hip resurfacing right hip approx 2005 Social History Smoking/Tobacco Use Status: Never Smoking risk assessment performed?: Yes Alcohol Intake: current Alcohol Intake frequency: 0-2 drinks per day Alcohol type: wine Drug use: Never Substance use type: does not use Housing: house Do you feel safe at home: Yes Do you feel safe in your relationship?: Yes Time Spent with Patient Time Spent with Patient: <45 minutes Time was spent: preparing to see the patient(eg.review tests), obtaining and/or reviewing separately otained hiistory, ordering medications,tests, procedures, referring, communicating with other health post acute care registered nurse, indepentently interpreting results, counseling the patient and care coordination
--- NOTE | 2024-08-08 10:31 | NUR.NOTE ---
IV d/c'd with nursing instructor Matias Lyle. Belinda Chang, MSN, RNC-OB (clinical instructor)
--- NOTE | 2024-08-08 16:31 | CMDISCH_ITS ---
Date of service: 08/08/24 Time of Service: 09:00 LACE Index Scoring Tool Questions: Length of Stay (in days): 2 Was the patient admitted via the E.D.?: Yes Comorbidities: Mild Liver/Renal Disease and Any Tumor E.D. Visits: 1 Answers: Total Score: 11 Risk of Readmission: High Risk Care Management Discharge Plan Reason for Hospitalization: GI bleed Discharge Plan: Alpesh was discharged home this morning with no new services. He will f/u with his PCP on 08/25 and continue per his plan of care. Alpesh was transported home in a private vehicle with a friend. Patient/Family Education Needs: Review of discharge instructions, activity, limitations and discuss ask me 3. SDOH Health Related Social Needs: Health related social needs feeling lonely/isolated (Z 60.8)
== END 2024-08-08 10:42 | disposition home or self-care (01) ==
LOC: ER 19:50 → MS 20:53
PROVIDERS: Admitting Provider Family Medicine; Emergency Provider Emergency Medicine; PCP Nurse Practitioner Family; Responsible Provider Family Medicine; Visit Provider Family Medicine
DX: K92.0 Hematemesis (principal); E87.1 Hypo-osmolality and hyponatremia; E83.42 Hypomagnesemia; F10.10 Alcohol abuse, uncomplicated; K70.10 Alcoholic hepatitis without ascites; I10 Essential (primary) hypertension; E78.5 Hyperlipidemia, unspecified; K40.90 Unilateral inguinal hernia, without obstruction or gangrene, not specified as recurrent; D62 Acute posthemorrhagic anemia; R01.1 Cardiac murmur, unspecified; Z79.1 Long term (current) use of non-steroidal anti-inflammatories (NSAID)
CPT/HCPCS: 00123; 36415; 80048; 80053; 80076; 83690; 85027; 86850; 86900; 86901; 87637; 96361; 96365; 96366; 96374; 96375; 96376; 99222; 99285; 74174; 80320; 81003; 82248; 83735; 84443; 85014; 85018; 85025; 85610; 85730; 99223; 99233; 99239; G0378; J0131; J1790; J2470; J3475; J3490

== ENCOUNTER 2024-08-21 11:48 | Inpatient (IN) | payer MEDICARE, SELFPAY ==
[2024-08-21] VITALS (31 sets, daily range): BP systolic 104–154; BP diastolic 78–129; PULSE 77–94; RESP 10–25; TEMP 36.1–37; O2SAT 92–96
--- NOTE | 2024-08-21 12:01 | ED.GENADUL_ITS ---
Discharge Plan Disposition Patient Disposition: Admit to [facility] Discharge Details Clinical Impression: Acute blood loss anemia, Alcohol abuse, daily use, Acute kidney injury Admit Date/Time: 08/21/24 13:25 Admit Provider: Alpesh Hernandez Attending Provider: Alpesh Hernandez Primary Care Provider: JEN COBOS ED Provider: Alpesh Greenberg Discharge Data Discharge Date/Time-TO BE ENTERED AT DEPARTURE: 08/21/24 14:56 HPI General Date/Time Provider Initiated Documentation: 08/21/24 12:00 . HPI Narrative: MDM This is a 78-year-old normotensive and nontachycardic alcoholic male with hematemesis melena consistent with upper GI bleed for which patient will receive 80 mg pantoprazole n.p.o. type and screen and hospitalization. He does not have hematemesis at the moment so I do not feel he requires a Maria A. He denies excess NSAIDs. He is not have a history of varices so we will defer octreotide. Will determine whether or not he is anemic to determine whether or not he r equires transfusion. He is not hypotensive so I do not feel he requires vasopressin. He is not having abdominal pain so will defer CT abdomen pelvis at this point. Will place him on a CIWA protocol. In the absence of fevers and abdominal pain and not concern for spontaneous bacterial peritonitis I did not feel that the patient required paracentesis. Will treat prophylactically with 1 g ceftriaxone. No chest pain to suggest esophageal rupture so do not feel that he requires CT scan. 12:35 PM Labs showing macrocytic anemia with hemoglobin greater than 7 so we will defer transfusion at this point in time. Comprehensive metabolic panel showing mild STELLA. Mild anion gap. Mild elevation of LFTs. Normal reassuring lipase. Normal magnesium. 1:15 PM I spoke with Dr. Skinner to alert him of the patient's overnight hospitalization. He had no history of varices on prior EGD completed 2 years ago. I do not feel the patient requires an emergent EGD but if he has recurrent hematemesis or anemia required transfusion he may or may not require EGD during this hospitalization. I was also in touch with Dr. Hernandez who graciously agreed to accept the patient for hospitalization. Patient remained stable in the emergency department. HPI This 78-year-old male history of daily alcohol use, 3 glasses a day but no history of withdrawals right emergency department via EMS in the setting of b lack bloody stools and hematemesis. Patient recent hospitalization for similar symptoms and had a CT scan. He remotely had an EGD. He says that for the past several days she has had dark tarry stools. He denies history of withdrawal. Is not anticoagulated. He is not having abdominal pain chest pain shortness of breath. Patient received 500 cc of crystalloid and ambulance and 4 mg ondansetron. Exam General: Well-appearing in no acute distress speaking in complete sentences. Head: Normocephalic, atraumatic. Eye: Extraocular eye movements intact. No conjunctival injection. No scleral icterus. Ear, nose, mouth, throat: Grossly normal inspection. Normal voice, handling secretions normally. Neck: Trachea midline. Cardiovascular: Well-perfused distal extremities. Respiratory: Nonlabored respiration. Clear lungs bilaterally. Gastrointestinal: Nondistended abdomen. Soft. Nontender. Rectal: Patient has melena. No active bleeding. Musculoskeletal: No edema. Moving all 4 extremities spontaneously. Skin: Normal for age and race, grossly normal temperature and turgor. No acute rash. Neurologic: Alert and appropriate, no apparent acute deficits. Psychiatric: Mood and manner are appropriate. Grooming and personal hygiene are appropriate. Related Data Home Medications ?Medication ?Instructions ?Recorded ?Confirmed sucralfate 1 gram tablet (Carafate) 1 g PO QACHS gastritis #120 tabs 08/03/22 08/21/24 pantoprazole 40 mg tablet,delayed 40 mg PO DAILY #90 tabs 08/08/24 08/21/24 release (Protonix) multivitamin 1 tab PO DAILY 08/21/24 08/21/24 Previous Rx's ?Medication ?Instructions ?Recorded sucralfate 1 gram tablet (Carafate) 1 g PO QACHS gastritis #120 tabs 08/03/22 pantoprazole 40 mg tablet,delayed 40 mg PO DAILY #90 tabs 08/08/24 release (Protonix) Allergies Allergy/AdvReac Type Severity Reaction Status Date / Time No Known Allergies Allergy Verified 08/21/24 12:37 General Stated Complaint: GI Bleed SANTINO: 3 Course Vital Signs Vital signs: Vital Signs Pulse 88 08/21/24 11:49 Respiratory Rate 18 08/21/24 11:49 Blood Pressure 146/84 H 08/21/24 11:49 Pulse Oximetry 95 08/21/24 11:49 Pulse 88 08/21/24 11:49 Respiratory Rate 18 08/21/24 11:49 Blood Pressure 146/84 H 08/21/24 11:49 Pulse Oximetry 95 08/21/24 11:49 Oxygen Delivery Method Room Air 08/21/24 11:49 Oxygen Flow Rate 0 08/21/24 11:49 Pain Level 0 08/21/24 11:49 Medical Decision Making Quality:SDOH Health Related Social Needs: Health related social needs feeling lonely/isolated (Z 60.8) 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) Screening for colon cancer (Acute) Vasovagal attack (Acute) Elevated LFTs (Chronic) Heart murmur previously undiagnosed (Acute) Ulcerative proctitis (Acute) Isolated episode in 2017 Acute upper GI bleed (Acute) Alcohol abuse, daily use (Chronic) Daily consumption of alcohol (Chronic) Acute blood loss anemia (Acute) Hypomagnesemia (Acute) Hyponatremia (Acute) Medical History Hypertension Hyperlipidemia Erectile dysfunction Inguinal hernia Male pattern baldness History of basal cell cancer History of skin cancer Keratosis, seborrheic Oral ulceration Abnormal auditory perception Cerumen impaction Neoplasm of unspecified behavior of bone, soft tissue, and skin Surgical History Hx of colonoscopy S/P total hip resurfacing right hip approx 2005 Social History Smoking/Tobacco Use Status: Never Smoking risk assessment performed?: Yes Alcohol Intake: current Alcohol Intake frequency: 3 or more drinks per day Alcohol type: wine Drug use: Current Sobriety Substance use type: does not use Housing: house Do you feel safe at home: Yes Do you feel safe in your relationship?: Yes
--- NOTE | 2024-08-21 12:03 | NUR.NOTE ---
assisted pt in making phone calls for appointments that he had scheduled this afternoon. Nursing Note:
[2024-08-21 12:11] LABS: Absolute Basophil Count 0.03 10^3/uL (0.0-0.2); Absolute Eosinophil Count 0.01 10^3/uL (0.0-0.7); Absolute Lymphocyte Count 0.57 10^3/uL (1.2-3.4); Absolute Monocyte Count 0.69 10^3/uL (0.1-0.8); Absolute Neutrophil Count 7.87 10^3/uL (1.2-6.7); Basophils % 0.3 %; Eosinophils % 0.1 %; Immature Grans % 1.1 %; Lymphocytes % 6.1 %; MCH 38.7 pg (27.0-33.0); MCHC 34.4 % (32.0-36.0); MCV 113 fL (80-95); MPV 8.5 fL (8.0-11.0); Monocytes % 7.4 %; Platelet Count 243 10^3/uL (130-400); RBC 2.84 10^6/uL (4.36-5.78); RDW 13.7 % (11.8-14.1); RDW-SD 56.5 fL; WBC 9.27 10^3/uL (4.4-10.8)
[2024-08-21] MEDS: Normal Saline Flush 10 ML SYR IVP ×3 (12:22→20:46)
[2024-08-21] MEDS: Pantoprazole 40 MG VIAL 80 MG IVP (12:22)
[2024-08-21] MEDS: cefTRIAXone 1 GM/50 ML BAG IVPB (12:23)
[2024-08-21 12:26] LABS: ALT 71 U/L (16-63); AST 62 U/L (15-37); Albumin 2.8 g/dL (3.4-5.0); Alkaline Phosphatase 137 U/L (46-116); Anion Gap 11.7 mmol/L (3-11); BUN 33 mg/dL (7-18); Bilirubin, Total 1.2 mg/dL (0.2-1.0); CO2 26.3 mmol/L (21.0-32.0); CREATININE 1.3 mg/dL (0.70-1.30); Calcium 8.7 mg/dL (8.5-10.1); Chloride 100 mmol/L (98-107); Estimated GFR 56.23 (mL/min/1.73m2); Glucose 147 mg/dL (74-106); Lipase 31 U/L (<78); Magnesium 1.4 mg/dL; Potassium 3.8 mmol/L (3.5-5.1); Sodium 138 mmol/L (136-145); Total Protein 6.8 g/dL (6.4-8.2)
[2024-08-21 12:35] LABS: INR 1.1 (0.9-1.1)
[2024-08-21 12:39] LABS: ETHANOL BLOOD < 3.0 mg/dL (<10)
--- NOTE | 2024-08-21 12:42 | NUR.NOTE ---
takes a hair loss medication but does not know the name Nursing Note:
[2024-08-21 12:43] LABS: Diff Comment RBC Morph Reviewed; Macrocytosis 1+; Polychromasia Present
[2024-08-21] MEDS: Normal Saline 1,000 ML 125 ML IV ×2 (12:52→20:40)
--- NOTE | 2024-08-21 13:11 | W.PM.HP.N ---
Date of service: 08/21/24 Time of Service: 13:11 Assessment and Plan Assessment and plan (1) Acute upper GI bleed: Status: Acute Assessment and plan: Sx consult Serial H&H NPO T&S consider PRBC transfusion for hypotension and drop over 2 points in H&H in 2 hours with ongoing bleed protonix drip (2) Acute kidney injury: Status: Acute Assessment and plan: Cr baseline 0.8 now 1.3 most likely prerenal NS at 125 cc/hr BMP in AM (3) Alcoholic hepatitis without ascites: Status: Chronic Assessment and plan: OPT f/u minimal transaminitis (4) Acute blood loss anemia: Status: Acute Assessment and plan: In the setting of Upper GIB and daily ETOH intake Serial H&H consider iron studies if further drop Type and screen completed in ED (5) Hypertension: Assessment and plan: No antihypertensive in meds list- f/u with PCP Will not initiate Tx at this time in the setting of acute GIB- will continue to monitor VS Q4 (6) Hyperlipidemia: Assessment and plan: Tchol 242 amd LDL 113 in 2022- does not seems to be treated OPT - f/u with PCP (7) Alcohol withdrawal: Status: Acute Assessment and plan: ETOH assessment Q4 Ethyl level negative Plan to intiate Phenopbarbital protocol 6 mg/kg if needed (8) On deep vein thrombosis (DVT) prophylaxis: Status: Acute Assessment and plan: TEDS Discussed with Mary Peraza History of Present Illness History of Present Illness Chief Complaint: GIB Narrative: This 78-year-old male patient with known history of alcohol use daily reported to the ED via EMS because of persistent epigastric abdominal pain for couple with nausea and hematemesis of bright red blood starting Sunday followed by dark red blood stools later turning black. Last drink was yesterday around 16:00. Workup in the ED showed and H&H of 11 & 32, Cr of 1.3 with baseline of 0.8, minimal transaminitis and total bili at baseline of 1.2. The CTA of the abdomen and pelvis was positive for a few well-defined similar size enhancing mural foci in small bowel loops, measuring up to 8 mm most likely polyps; negative for any other abnormalities. Surgery was consulted and the patient admitted to the medical surgical floor for further evaluation and management of gastro-intestinal bleeding and STELLA. In the EDwith IV hydration and IV Protonix were strated. The patient confirmed full code status and reported weakness, dizziness, chills w/o objective fever, nausea, hematemesis, melena. He denied change in vision, chest pain, dysuria. Review of Systems All systems reviewed & are unremarkable except as noted in HPI and below 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) Screening for colon cancer (Acute) Vasovagal attack (Acute) Elevated LFTs (Chronic) Heart murmur previously undiagnosed (Acute) Ulcerative proctitis (Acute) Isolated episode in 2017 Acute upper GI bleed (Acute) Alcohol abuse, daily use (Chronic) Daily consumption of alcohol (Chronic) Acute blood loss anemia (Acute) Hypomagnesemia (Acute) Hyponatremia (Acute) Medical History Hypertension Hyperlipidemia Erectile dysfunction Inguinal hernia Male pattern baldness History of basal cell cancer History of skin cancer Keratosis, seborrheic Oral ulceration Abnormal auditory perception Cerumen impaction Neoplasm of unspecified behavior of bone, soft tissue, and skin Surgical History Hx of colonoscopy S/P total hip resurfacing right hip approx 2005 Social History Smoking/Tobacco Use Status: Never Smoking risk assessment performed?: Yes Alcohol Intake: current Alcohol Intake frequency: 3 or more drinks per day Alcohol type: wine Drug use: Current Sobriety Substance use type: does not use Housing: house Do you feel safe at home: Yes Do you feel safe in your relationship?: Yes Meds Allergies and Home Medications Allergies Allergy/AdvReac Type Severity Reaction Status Date / Time No Known Allergies Allergy Verified 08/21/24 12:37 Home Medications ?Medication ?Instructions ?Recorded ?Confirmed ?Type sucralfate 1 gram tablet (Carafate) 1 g PO QACHS gastritis #120 tabs 08/03/22 08/21/24 Rx pantoprazole 40 mg tablet,delayed 40 mg PO DAILY #90 tabs 08/08/24 08/21/24 Rx release (Protonix) multivitamin 1 tab PO DAILY 08/21/24 08/21/24 History Exam Narrative Exam Narrative: Constitutional The patient is in bed comfortable and cooperative without acute distress HENMT: Head is atraumatic, normocephalic, no lymphadenopathy. Facial structures with normal appearance - flushed cheeks and nose Eyes: Well aligned, intact ROM Neck: Normal ROM, no meningeal signs Neuro:alert and oriented to self, person, place, time and situation. No neurological focal deficit Resp: Normal respiratory pattern, speaks in full sentences, unlabored breathing, clear lung bilaterally Cardio: regular rhythm, S1, S2, no murmur, capillary refill<3 sec., bilateral radial and dorsalis pedis pulses are positive, palpable GI: Abdomen is not distended, soft and tender lower quadrants, bowel sounds are present Integumentary: No skin lesions or rash- rosacea appearance to face Extremities: strength 5/5 to bilateral lower and upper extremities Psych: RASS 0, congruent mood and normal affect. Results Labs 08/21/24 15:06 08/21/24 12:01 Labs: Laboratory Results - last 24 hr 08/21/24 08/21/24 12:01 12:16 WBC 9.27 RBC 2.84 L Hgb 11.0 L Hct 32.0 L MCV 113 H MCH 38.7 H MCHC 34.4 RDW 13.7 Plt Count 243 MPV 8.5 Immature Gran % 1.1 Neutrophils % 85.0 Lymphocytes % 6.1 Monocytes % 7.4 Eosinophils % 0.1 Basophils % 0.3 Nucleated RBC % 0.0 Absolute Neutrophils 7.87 H Absolute Lymphocytes 0.57 L Absolute Monocytes 0.69 Absolute Eosinophils 0.01 Absolute Basophils 0.03 RBC Morphology See Below Polychromasia Present Macrocytosis 1+ PT 11.0 INR 1.1 Sodium 138 Potassium 3.8 Chloride 100 Carbon Dioxide 26.3 Anion Gap 11.7 H BUN 33 H Creatinine 1.3 Est GFR (CKD-EPI 2020) 56.23 Glucose 147 H Calcium 8.7 Magnesium 1.4 Total Bilirubin 1.2 H AST 62 H ALT 71 H Alkaline Phosphatase 137 H Total Protein 6.8 Albumin 2.8 L Lipase 31 Ethyl Alcohol < 3.0 ABO/Rh A Positive Antibody Screen NEGATIVE Last Vital Signs Pulse 88 08/21/24 11:49 Resp 18 08/21/24 11:49 BP 146/84 H 08/21/24 11:49 Pulse Ox 95 08/21/24 11:49 PAWSS Have you Been Recently Intoxicated or Drunk Within the Last 30 days?: No Have you Ever Experienced Previous Episodes of Alcohol Withdrawal?: No Have you ever Experienced Withdrawal Seizures?: No Have you ever Experienced Delirium Tremens(DT)s?: No Have you ever undergone Alcohol Rehabilitation Treatment (i.e, inpt ot outpatient treatment programs)?: No Have you ever Experienced Blackouts?: No Have you ever Combined Alcohol with other Downers within the last 90 days?: No Have you ever Combined Alcohol with any other Substance of Abuse during the last 90 days?: No Positive Blood Alcohol level on Presentation? [PCS.BAL]: No Evidence of Increased Autonomic Activity (i.e. HR>120, tremor, sweating, agitation, nausea)?: No Result: 0 Time Spent Time spent with Patient: >75 minutes Time was spent: preparing to see the patient(eg.review tests), obtaining and/or reviewing separately otained hiistory, ordering medications,tests, procedures, referring, communicating with other health plant health care technician, indepentently interpreting results, counseling the patient and care coordination
--- NOTE | 2024-08-21 13:25 | W.SURGCON ---
Date of service: 08/21/24 Time of Service: Assessment and Plan Assessment and plan (1) Acute upper GI bleed: Status: Acute Assessment and plan: 78-year-old man who has chronic melena and chronic blood in vomitus in the setting of heavy alcohol use. This has been going on for a long time with repeated ED visits and hospitalizations. I agree with Dr. Fletcher's recent surgical consultation note. At this time no role for repeat endoscopy and colonoscopy. Can consider outpatient referral to GI. Patient should consider alcohol cessation. History of Present Illness Narrative: 78 yo man has extensive history of on/off vomiting blood and melena. Remote history of ulcerative colitis. Heavy alcoholism. Has been seen in consultation by surgery multiple times historically. EGD and colonoscopy done within the last couple years for same reasons. Today he reports that he was taking Aleve. He has been vomiting the last 3 days. There is blood in the vomit. His stools are dark again. His hemoglobin is 11. His typical alcohol intake is a couple of bottles of white wine a day. 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) Screening for colon cancer (Acute) Vasovagal attack (Acute) Elevated LFTs (Chronic) Heart murmur previously undiagnosed (Acute) Ulcerative proctitis (Acute) Isolated episode in 2017 Acute upper GI bleed (Acute) Alcohol abuse, daily use (Chronic) Daily consumption of alcohol (Chronic) Acute blood loss anemia (Acute) Hypomagnesemia (Acute) Hyponatremia (Acute) Medical History Hypertension Hyperlipidemia Erectile dysfunction Inguinal hernia Male pattern baldness History of basal cell cancer History of skin cancer Keratosis, seborrheic Oral ulceration Abnormal auditory perception Cerumen impaction Neoplasm of unspecified behavior of bone, soft tissue, and skin Surgical History Hx of colonoscopy S/P total hip resurfacing right hip approx 2005 Social History Smoking/Tobacco Use Status: Never Smoking risk assessment performed?: Yes Alcohol Intake: current Alcohol Intake frequency: 3 or more drinks per day Alcohol type: wine Drug use: Current Sobriety Substance use type: does not use Housing: house Do you feel safe at home: Yes Do you feel safe in your relationship?: Yes Exam Narrative Exam Narrative: Gen: Non-toxic, comfortable and interactive. Chronically ill appearance. 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 Neuro: Alert and oriented x3 Psych: Good mood and affect. Seemingly good insight and understanding into condition. Chest: Non-labored breathing, no wheezing, no visible shortness of breath. Heart: Regular Abdomen: Soft, nontender and nondistended. Results Last Vital Signs Pulse 88 08/21/24 13:20 Resp 23 08/21/24 13:20 BP 139/79 08/21/24 13:15 Pulse Ox 94 08/21/24 13:20 Labs 08/21/24 12:01 08/21/24 12:01 Labs: Laboratory Results - last 24 hr 08/21/24 08/21/24 12:01 12:16 WBC 9.27 RBC 2.84 L Hgb 11.0 L Hct 32.0 L MCV 113 H MCH 38.7 H MCHC 34.4 RDW 13.7 Plt Count 243 MPV 8.5 Immature Gran % 1.1 Neutrophils % 85.0 Lymphocytes % 6.1 Monocytes % 7.4 Eosinophils % 0.1 Basophils % 0.3 Nucleated RBC % 0.0 Absolute Neutrophils 7.87 H Absolute Lymphocytes 0.57 L Absolute Monocytes 0.69 Absolute Eosinophils 0.01 Absolute Basophils 0.03 RBC Morphology See Below Polychromasia Present Macrocytosis 1+ PT 11.0 INR 1.1 Sodium 138 Potassium 3.8 Chloride 100 Carbon Dioxide 26.3 Anion Gap 11.7 H BUN 33 H Creatinine 1.3 Est GFR (CKD-EPI 2020) 56.23 Glucose 147 H Calcium 8.7 Magnesium 1.4 Total Bilirubin 1.2 H AST 62 H ALT 71 H Alkaline Phosphatase 137 H Total Protein 6.8 Albumin 2.8 L Lipase 31 Ethyl Alcohol < 3.0 ABO/Rh A Positive Antibody Screen NEGATIVE
[2024-08-21 15:20] LABS: Abs Immature Grans 0.09 10^3/uL (0.0-0.06); Absolute Basophil Count 0.03 10^3/uL (0.0-0.2); Absolute Eosinophil Count 0.01 10^3/uL (0.0-0.7); Absolute Lymphocyte Count 0.71 10^3/uL (1.2-3.4); Absolute Monocyte Count 0.65 10^3/uL (0.1-0.8); Absolute Neutrophil Count 7.48 10^3/uL (1.2-6.7); Basophils % 0.3 %; Eosinophils % 0.1 %; HCT 30.1 % (40.0-50.0); HGB 10.5 g/dL (13.5-17.5); Lymphocytes % 7.9 %; MCH 38.7 pg (27.0-33.0); MCHC 34.9 % (32.0-36.0); MCV 111 fL (80-95); MPV 8.7 fL (8.0-11.0); Monocytes % 7.2 %; Neutrophils % 83.5 %; Platelet Count 225 10^3/uL (130-400); RBC 2.71 10^6/uL (4.36-5.78); RDW 13.7 % (11.8-14.1); RDW-SD 55.6 fL; WBC 8.97 10^3/uL (4.4-10.8)
[2024-08-21 15:39] LABS: Diff Comment RBC Morph Reviewed; Macrocytosis 2+
[2024-08-21] MEDS: PANTOPRAZOLE 80 MG in Normal Saline 100 ML 10 MG IV (17:13)
--- NOTE | 2024-08-21 17:37 | W.PC.ACHO ---
Registration Status: Primary Language: Preferred Language: ED Information & Data Chief Complaint GI Bleed 08/21/24 12:08 Triage Note pt reports vomiting blood, 08/21/24 11:49 black stools and abdominal pain - taking tylenol. recent admission for same symptoms. has been weak. lost his balance and fell. found by ems on the floor. had been incontinent of stool. SOB when sleeping. Medical / Surgical History (Last Reviewed 08/06/24 @ 18:56 by Shree Rojo) Hypertension Hyperlipidemia Erectile dysfunction Inguinal hernia Male pattern baldness History of basal cell cancer History of skin cancer Keratosis, seborrheic Oral ulceration Abnormal auditory perception Cerumen impaction Neoplasm of unspecified behavior of bone, soft tissue, and skin (Last Reviewed 08/06/24 @ 18:56 by Shree Rojo) Hx of colonoscopy S/P total hip resurfacing Most Recent Vital Signs Temperature 36.1 C L 08/21/24 15:20 Temperature Source Temporal Artery Scan 08/21/24 15:20 Pulse 77 08/21/24 15:20 Pulse Rhythm Regular 08/21/24 14:56 Pulse 84 08/21/24 14:20 Respiratory Rate 16 08/21/24 15:20 Respiratory Effort Normal, Non-Labored 08/21/24 14:56 Respiratory Depth Normal 08/21/24 14:56 Respiratory Pattern Normal 08/21/24 14:56 Blood Pressure 115/78 08/21/24 15:20 Blood Pressure Mean 104 08/21/24 14:15 Pulse Oximetry 93 08/21/24 15:20 Oxygen Delivery Method Room Air 08/21/24 15:20 Oxygen Flow Rate 0 08/21/24 15:20 Pain Level 4 08/21/24 17:13 Allergies No Known Allergies Allergy (Verified 08/21/24 12:37) Active Medications Generic Name Dose Route Start Last Admin Trade Name Freq PRN Reason Stop Dose Admin Sodium Chloride 1,000 mls @ 125 mls/hr 08/21/24 12:45 08/21/24 12:52 Saline 1000ml Bag IV 08/22/24 00:44 125 mls/hr INFUSION CARIDAD Administration Pantoprazole Sodium 80 mg/ 100 mls @ 10 mls/hr 08/21/24 14:54 08/21/24 17:13 Sodium Chloride IV 10 mls/hr INFUSION CARIDAD Administration Sodium Chloride 0 ml 08/21/24 12:00 08/21/24 12:52 Normal Saline Flush 10 Ml Syr IVP 10 ml PRN PRN Administration IV IV Catheter Type [Right Saline Lock Antecubital] IV Catheter Type [Left Saline Lock Antecubital] IV Catheter Gauge [Right 18 Antecubital] IV Catheter Gauge [Left 20 Antecubital] Diet Orders Category Date Time Status npo [Nothing Per Oral] [DIET] Nutrition 08/21/24 Dinner Active Diagnostics 08/21/24 08/21/24 08/21/24 Range/Units 20:54 15:06 14:54 WBC Pending 8.97 Cancelled (4.4-10.8) 10^3/uL RBC Pending 2.71 L Cancelled (4.36-5.78) 10^6/uL Hgb Pending 10.5 L Cancelled (13.5-17.5) g/dL Hct Pending 30.1 L Cancelled (40.0-50.0) % MCV Pending 111 H Cancelled (80-95) fL MCH Pending 38.7 H Cancelled (27.0-33.0) pg MCHC Pending 34.9 Cancelled (32.0-36.0) % RDW Pending 13.7 Cancelled (11.8-14.1) % Plt Count Pending 225 Cancelled (130-400) 10^3/uL MPV Pending 8.7 Cancelled (8.0-11.0) fL Immature Gran % 1.0 % Neutrophils % 83.5 % Lymphocytes % 7.9 % Monocytes % 7.2 % Eosinophils % 0.1 % Basophils % 0.3 % Nucleated RBC % 0.0 (0.0-0.3) % Absolute Neutrophils 7.48 H (1.2-6.7) 10^3/uL Absolute Lymphocytes 0.71 L (1.2-3.4) 10^3/uL Absolute Monocytes 0.65 (0.1-0.8) 10^3/uL Absolute Eosinophils 0.01 (0.0-0.7) 10^3/uL Absolute Basophils 0.03 (0.0-0.2) 10^3/uL RBC Morphology See Below Polychromasia Macrocytosis 2+ PT (9.1-11.1) sec INR (0.9-1.1) Sodium (136-145) mmol/L Potassium (3.5-5.1) mmol/L Chloride (98-107) mmol/L Carbon Dioxide (21.0-32.0) mmol/L Anion Gap (3-11) mmol/L BUN (7-18) mg/dL Creatinine (0.70-1.30) mg/dL Est GFR (CKD-EPI 2020) (mL/min/1.73m2) Glucose (74-106) mg/dL Calcium (8.5-10.1) mg/dL Magnesium mg/dL Total Bilirubin (0.2-1.0) mg/dL AST (15-37) U/L ALT (16-63) U/L Alkaline Phosphatase (46-116) U/L Total Protein (6.4-8.2) g/dL Albumin (3.4-5.0) g/dL Lipase (<78) U/L Ethyl Alcohol (<10) mg/dL ABO/Rh Antibody Screen 08/21/24 08/21/24 Range/Units 12:16 12:01 WBC 9.27 (4.4-10.8) 10^3/uL RBC 2.84 L (4.36-5.78) 10^6/uL Hgb 11.0 L (13.5-17.5) g/dL Hct 32.0 L (40.0-50.0) % MCV 113 H (80-95) fL MCH 38.7 H (27.0-33.0) pg MCHC 34.4 (32.0-36.0) % RDW 13.7 (11.8-14.1) % Plt Count 243 (130-400) 10^3/uL MPV 8.5 (8.0-11.0) fL Immature Gran % 1.1 % Neutrophils % 85.0 % Lymphocytes % 6.1 % Monocytes % 7.4 % Eosinophils % 0.1 % Basophils % 0.3 % Nucleated RBC % 0.0 (0.0-0.3) % Absolute Neutrophils 7.87 H (1.2-6.7) 10^3/uL Absolute Lymphocytes 0.57 L (1.2-3.4) 10^3/uL Absolute Monocytes 0.69 (0.1-0.8) 10^3/uL Absolute Eosinophils 0.01 (0.0-0.7) 10^3/uL Absolute Basophils 0.03 (0.0-0.2) 10^3/uL RBC Morphology See Below Polychromasia Present Macrocytosis 1+ PT 11.0 (9.1-11.1) sec INR 1.1 (0.9-1.1) Sodium 138 (136-145) mmol/L Potassium 3.8 (3.5-5.1) mmol/L Chloride 100 (98-107) mmol/L Carbon Dioxide 26.3 (21.0-32.0) mmol/L Anion Gap 11.7 H (3-11) mmol/L BUN 33 H (7-18) mg/dL Creatinine 1.3 (0.70-1.30) mg/dL Est GFR (CKD-EPI 2020) 56.23 (mL/min/1.73m2) Glucose 147 H (74-106) mg/dL Calcium 8.7 (8.5-10.1) mg/dL Magnesium 1.4 mg/dL Total Bilirubin 1.2 H (0.2-1.0) mg/dL AST 62 H (15-37) U/L ALT 71 H (16-63) U/L Alkaline Phosphatase 137 H (46-116) U/L Total Protein 6.8 (6.4-8.2) g/dL Albumin 2.8 L (3.4-5.0) g/dL Lipase 31 (<78) U/L Ethyl Alcohol < 3.0 (<10) mg/dL ABO/Rh A Positive Antibody Screen NEGATIVE Intake and Output - 24 Hour Total 08/21/24 11:39 thru 08/21/24 15:13 Intake Total 50 Balance 50 Weight 91 kg Intake: IV 50 Other: Urine Color [place] Urine Appearance Clear Comment 3000 emptied from catheter, clear and light pink in color Emesis Description Bright Red Blood Falls Risk Assessment History of Falls Admit Due to Fall 08/21/24 14:56 Contributing Factors Unstable 08/21/24 14:56 Ambulatory Aids Independent 08/21/24 14:56 Tubes/Lines With any additional score 08/21/24 14:56 Gait Evaluation W/any additional score 08/21/24 14:56 Cognition No cognitive impairment 08/21/24 14:56 Fall Total Score 68 08/21/24 14:56 Level of Risk High Risk 08/21/24 14:56 Problems (Last Reviewed 08/06/24 @ 18:56 by Shree Rojo) On deep vein thrombosis (DVT) prophylaxis (Acute) Alcohol withdrawal (Acute) Acute kidney injury (Acute) 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 Nursing Note: Initialized on 08/21/24 12:03 - END OF NOTE v v v v v v v v v Sending and/or Receiving Nurses: Please use comment section below to note any information pertinent to the patient hand-off not included above. Information / Comments: Report received from: report from doc kong ed rn. first report call at 14:20.
[2024-08-21] MEDS: ACETAMINOPHEN 1,000 MG/100 ML BAG 400 MG IVPB (17:44)
[2024-08-21 21:52] LABS: HCT 26.3 % (40.0-50.0); HGB 9.2 g/dL (13.5-17.5); MPV 8.6 fL (8.0-11.0); Platelet Count 177 10^3/uL (130-400); RBC 2.36 10^6/uL (4.36-5.78); RDW 13.6 % (11.8-14.1); RDW-SD 55.5 fL; WBC 6.49 10^3/uL (4.4-10.8)
[2024-08-21 22:08] LABS: MCV 111 fL (80-95)
[2024-08-22 03:07] VITALS: BP 135/87; PULSE 83; RESP 20; TEMP 37; O2SAT 93
[2024-08-22] MEDS: PANTOPRAZOLE 80 MG in Normal Saline 100 ML 10 MG IV (03:22)
[2024-08-22] MEDS: Normal Saline 1,000 ML 125 ML IV (04:50)
[2024-08-22 07:52] VITALS: BP 125/80; PULSE 82; RESP 14; TEMP 36.8; O2SAT 94
[2024-08-22 09:11] LABS: Abs Immature Grans 0.05 10^3/uL (0.0-0.06); Absolute Basophil Count 0.04 10^3/uL (0.0-0.2); Absolute Lymphocyte Count 0.73 10^3/uL (1.2-3.4); Absolute Monocyte Count 0.49 10^3/uL (0.1-0.8); Absolute Neutrophil Count 3.86 10^3/uL (1.2-6.7); Basophils % 0.8 %; Eosinophils % 1.9 %; HCT 25.6 % (40.0-50.0); HGB 8.9 g/dL (13.5-17.5); Immature Grans % 0.9 %; Lymphocytes % 13.9 %; MCH 39.4 pg (27.0-33.0); MCHC 34.8 % (32.0-36.0); MCV 113 fL (80-95); MPV 8.6 fL (8.0-11.0); Monocytes % 9.3 %; Neutrophils % 73.2 %; Platelet Count 172 10^3/uL (130-400); RBC 2.26 10^6/uL (4.36-5.78); RDW 13.8 % (11.8-14.1); RDW-SD 57.9 fL; WBC 5.27 10^3/uL (4.4-10.8)
[2024-08-22 09:22] LABS: Diff Comment RBC Morph Reviewed; Macrocytosis 2+
--- NOTE | 2024-08-22 09:27 | INITIAL_ITS ---
Date of service: 08/22/24 Time of Service: 09:27 Care Management Initial Assmt Initial Assessment Reason for Hospitalization: UGI bleed Functional Status/Living Situation Patient Presentation: Alpesh was sitting up in bed when CM met with him. He was pleasant and engaged easily with CM, known to him from a previous admission. Alpesh lives alone in a single family home in [place].He is but remains good friends with his ex-. Alpesh is originally from [facility] and worked as a [employer] there before moving to [place] 20 years ago. He is independent at baseline and does not receive any community services. Alpesh was admitted with a GI bleed and has a history of AUD. He was recently hospitalized for the same reason and verbalizes that he really wants to stop drinking. With his permission CM called a continuous improvement coach who came to [facility] and met with him. Alpesh reported that the visit went really well and that the continuous improvement coach plans to call him tomorrow at 10 am and will keep in touch over the weekend. Town of Residence: [place] Resides with: Alone Significant Other/Family: Out of area (only child, a son, lives in [place]) Employment Status: Retired Instrumental Activities of Daily Living (ADLs): Independent Medications Medication Management: No Issues/Barriers identified Advance Directives Advance Directives: Do you have an Advance Directive: Y 05/29/17 10:49 AD On File at [facility]: N 05/29/17 10:49 Date Asked 03/31/24 03/31/24 17:49 AD Date Reviewed 08/06/24 08/06/24 19:50 COLST On File at [facility] COLST Date Scanned Code Status Resuscitation Status Full Code Portal Pt does not currently have a portal and education provided: Yes Insurance Coverage/Financial Issues Insurance: [employer] Medicare Replacement Care Team Visit Care Team Role Provider Type Ariana Greene APRN MD [facility] STAFF PHYSICIAN JEN COBOS NP Primary Care Provider NON-[facility] STAFF PHYSICIAN Aniceto Skinner MD Other Providers [facility] STAFF PHYSICIAN Alpesh Greenberg MD Emergency Provider [facility] STAFF PHYSICIAN Alpesh Hernandez Admit Provider [facility] STAFF PHYSICIAN Attending Provider Discharge Potential Discharge Needs: PCP F/U Appt Anticipated Barriers to Discharge: None Identified Patient/Family Education Needs: Review discharge instructions, discuss Ask Me Three Transportation: Private vehicle Plan: Anticipate Alpesh will be discharged home with no new services when medically cleared. He will follow up with his community providers and plan of care and transport with family. CM will follow and continue to support discharge planning efforts. 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) Screening for colon cancer (Acute) Vasovagal attack (Acute) Elevated LFTs (Chronic) Heart murmur previously undiagnosed (Acute) Ulcerative proctitis (Acute) Isolated episode in 2017 Acute upper GI bleed (Acute) Alcohol abuse, daily use (Chronic) Daily consumption of alcohol (Chronic) Acute blood loss anemia (Acute) Hypomagnesemia (Acute) Hyponatremia (Acute) Medical History Hypertension Hyperlipidemia Erectile dysfunction Inguinal hernia Male pattern baldness History of basal cell cancer History of skin cancer Keratosis, seborrheic Oral ulceration Abnormal auditory perception Cerumen impaction Neoplasm of unspecified behavior of bone, soft tissue, and skin Surgical History Hx of colonoscopy S/P total hip resurfacing right hip approx 2005 Social History Smoking/Tobacco Use Status: Never Smoking risk assessment performed?: Yes Alcohol Intake: current Alcohol Intake frequency: 3 or more drinks per day Alcohol type: wine Drug use: Current Sobriety Substance use type: does not use Housing: house Do you feel safe at home: Yes Do you feel safe in your relationship?: Yes
[2024-08-22 09:33] LABS: ALT 49 U/L (16-63); AST 57 U/L (15-37); Albumin 2.5 g/dL (3.4-5.0); Alkaline Phosphatase 103 U/L (46-116); Anion Gap 10.1 mmol/L (3-11); BUN 24 mg/dL (7-18); Bilirubin, Total 0.7 mg/dL (0.2-1.0); CO2 24.9 mmol/L (21.0-32.0); CREATININE 0.8 mg/dL (0.70-1.30); Calcium 8.2 mg/dL (8.5-10.1); Chloride 108 mmol/L (98-107); Estimated GFR 90.58 (mL/min/1.73m2); Glucose 87 mg/dL (74-106); Potassium 3.7 mmol/L (3.5-5.1); Sodium 143 mmol/L (136-145); Total Protein 5.8 g/dL (6.4-8.2)
--- NOTE | 2024-08-22 10:09 | W.PM.PROGNOT ---
Date of Service Date of service: 08/22/24 Time of Service: 10:10 Assessment and Plan Assessment and plan (1) Acute upper GI bleed: Status: Acute Assessment and plan: Sx consult Serial H&H- stable no further hematemesis T&S consider PRBC transfusion for hypotension and drop over 2 points in H&H in 2 hours with ongoing bleed protonix drip (2) Acute kidney injury: Status: Acute Assessment and plan: Cr baseline 0.8 now 1.3 most likely prerenal NS at 125 cc/hr BMP in AM (3) Alcoholic hepatitis without ascites: Status: Chronic Assessment and plan: OPT f/u minimal transaminitis (4) Acute blood loss anemia: Status: Acute Assessment and plan: In the setting of Upper GIB and daily ETOH intake Serial H&H consider iron studies if further drop Type and screen completed in ED (5) Hypertension: Assessment and plan: No antihypertensive in meds list- f/u with PCP Will not initiate Tx at this time in the setting of acute GIB- will continue to monitor VS Q4 (6) Hyperlipidemia: Assessment and plan: Tchol 242 amd LDL 113 in 2022- does not seems to be treated OPT - f/u with PCP (7) Alcohol withdrawal: Status: Acute Assessment and plan: ETOH assessment Q4 Ethyl level negative Plan to intiate Phenopbarbital protocol 6 mg/kg if needed (8) On deep vein thrombosis (DVT) prophylaxis: Status: Acute Assessment and plan: TEDS Discussed with Mary Peraza Objective Last Vital Signs Temp 36.8 C 08/22/24 07:52 Pulse 82 08/22/24 07:52 Resp 14 08/22/24 07:52 BP 125/80 08/22/24 07:52 Pulse Ox 94 08/22/24 07:52 Laboratory Results - last 24 hr 08/21/24 08/21/24 08/21/24 12:01 12:16 14:54 WBC 9.27 Cancelled RBC 2.84 L Cancelled Hgb 11.0 L Cancelled Hct 32.0 L Cancelled MCV 113 H Cancelled MCH 38.7 H Cancelled MCHC 34.4 Cancelled RDW 13.7 Cancelled Plt Count 243 Cancelled MPV 8.5 Cancelled Immature Gran % 1.1 Neutrophils % 85.0 Lymphocytes % 6.1 Monocytes % 7.4 Eosinophils % 0.1 Basophils % 0.3 Nucleated RBC % 0.0 Absolute Neutrophils 7.87 H Absolute Lymphocytes 0.57 L Absolute Monocytes 0.69 Absolute Eosinophils 0.01 Absolute Basophils 0.03 RBC Morphology See Below Polychromasia Present Macrocytosis 1+ PT 11.0 INR 1.1 Sodium 138 Potassium 3.8 Chloride 100 Carbon Dioxide 26.3 Anion Gap 11.7 H BUN 33 H Creatinine 1.3 Est GFR (CKD-EPI 2020) 56.23 Glucose 147 H Calcium 8.7 Magnesium 1.4 Total Bilirubin 1.2 H AST 62 H ALT 71 H Alkaline Phosphatase 137 H Total Protein 6.8 Albumin 2.8 L Lipase 31 Ethyl Alcohol < 3.0 ABO/Rh A Positive Antibody Screen NEGATIVE 08/21/24 08/21/24 08/22/24 15:06 20:43 08:36 WBC 8.97 6.49 RBC 2.71 L 2.36 L Hgb 10.5 L 9.2 L Hct 30.1 L 26.3 L MCV 111 H 111 H MCH 38.7 H 39.0 H MCHC 34.9 35.0 RDW 13.7 13.6 Plt Count 225 177 MPV 8.7 8.6 Immature Gran % 1.0 Neutrophils % 83.5 Lymphocytes % 7.9 Monocytes % 7.2 Eosinophils % 0.1 Basophils % 0.3 Nucleated RBC % 0.0 Absolute Neutrophils 7.48 H Absolute Lymphocytes 0.71 L Absolute Monocytes 0.65 Absolute Eosinophils 0.01 Absolute Basophils 0.03 RBC Morphology See Below Polychromasia Macrocytosis 2+ PT INR Sodium Cancelled Potassium Cancelled Chloride Cancelled Carbon Dioxide Cancelled Anion Gap Cancelled BUN Cancelled Creatinine Cancelled Est GFR (CKD-EPI 2020) Cancelled Glucose Cancelled Calcium Cancelled Magnesium Total Bilirubin AST ALT Alkaline Phosphatase Total Protein Albumin Lipase Ethyl Alcohol ABO/Rh Antibody Screen 08/22/24 08/22/24 08:48 09:00 WBC 5.27 RBC 2.26 L Hgb 8.9 L Hct 25.6 L MCV 113 H MCH 39.4 H MCHC 34.8 RDW 13.8 Plt Count 172 MPV 8.6 Immature Gran % 0.9 Neutrophils % 73.2 Lymphocytes % 13.9 Monocytes % 9.3 Eosinophils % 1.9 Basophils % 0.8 Nucleated RBC % 0.0 Absolute Neutrophils 3.86 Absolute Lymphocytes 0.73 L Absolute Monocytes 0.49 Absolute Eosinophils 0.10 Absolute Basophils 0.04 RBC Morphology See Below Polychromasia Macrocytosis 2+ PT INR Sodium Cancelled 143 Potassium Cancelled 3.7 Chloride Cancelled 108 H Carbon Dioxide Cancelled 24.9 Anion Gap Cancelled 10.1 BUN Cancelled 24 H Creatinine Cancelled 0.8 Est GFR (CKD-EPI 2020) Cancelled 90.58 Glucose Cancelled 87 Calcium Cancelled 8.2 L Magnesium Total Bilirubin Cancelled 0.7 AST Cancelled 57 H ALT Cancelled 49 Alkaline Phosphatase Cancelled 103 Total Protein Cancelled 5.8 L Albumin Cancelled 2.5 L Lipase Ethyl Alcohol ABO/Rh Antibody Screen PAWSS Have you Been Recently Intoxicated or Drunk Within the Last 30 days?: Yes Have you Ever Experienced Previous Episodes of Alcohol Withdrawal?: No Have you ever Experienced Withdrawal Seizures?: No Have you ever Experienced Delirium Tremens(DT)s?: No Have you ever undergone Alcohol Rehabilitation Treatment (i.e, inpt ot outpatient treatment programs)?: No Have you ever Experienced Blackouts?: No Have you ever Combined Alcohol with other Downers within the last 90 days?: No Have you ever Combined Alcohol with any other Substance of Abuse during the last 90 days?: No Positive Blood Alcohol level on Presentation? [PCS.BAL]: No Evidence of Increased Autonomic Activity (i.e. HR>120, tremor, sweating, agitation, nausea)?: No Result: 1
[2024-08-22] MEDS: Ondansetron 4 MG/2 ML VIAL IV (10:10)
[2024-08-22 11:41] VITALS: BP 130/85; PULSE 79; RESP 16; TEMP 36.7; O2SAT 96
[2024-08-22 13:22] LABS: HCT 25.3 % (40.0-50.0); MCH 39.8 pg (27.0-33.0); MCHC 35.6 % (32.0-36.0); MCV 112 fL (80-95); MPV 8.8 fL (8.0-11.0); Platelet Count 186 10^3/uL (130-400); RBC 2.26 10^6/uL (4.36-5.78); WBC 6.16 10^3/uL (4.4-10.8)
[2024-08-22] MEDS: Sucralfate 1 GM TAB PO ×2 (13:35→16:05)
--- NOTE | 2024-08-22 15:29 | W.PM.DS.N ---
Date of service: 08/22/24 Time of Service: 15:30 DS: Diagnosis Discharge Diagnosis (1) Acute upper GI bleed: Status: Acute (2) Acute kidney injury: Status: Acute (3) Alcoholic hepatitis without ascites: Status: Chronic (4) Acute blood loss anemia: Status: Acute (5) Hypertension: (6) Hyperlipidemia: (7) Alcohol withdrawal: Status: Acute (8) On deep vein thrombosis (DVT) prophylaxis: Status: Acute Discharge Plan Disposition Patient Disposition: Home Condition: Improving Discharge Details Reason For Visit: GIB Admit Date/Time: 08/21/24 13:25 Admit Provider: Alpesh Hernandez Attending Provider: Alpesh Hernandez Primary Care Provider: JEN COBOS Hospital Course Hospital Course: This 78-year-old male patient with known history of daily alcohol use reported to the ED via EMS on 08/21/2024 for evaluation of persistent epigastric abdominal pain with nausea and hematemesis of bright red blood followed by dark red blood stools later turning black. Last drink on the day prior to arrival , similar admission on 08/06/24. Workup in the ED showed and H&H of 11 & 32, Cr of 1.3 with baseline of 0.8. The CTA of the abdomen and pelvis was positive for a few well-defined similar size enhancing mural foci in small bowel loops, measuring up to 8 mm most likely polyps; negative for any other abnormalities. Surgery was consulted and did not recommend any acute interventions.The patient admitted to the medical surgical floor for further evaluation and management of gastro-intestinal bleeding and STELLA. In the EDwith IV hydration and IV Protonix were started. H&H remained stable w/o further hematemesis and one episode of melena. Chemistry labs returned to near baseline and the patient was able to tolerate oral intake; remains hemodynamically stable without major sign & symptoms of alcohol withdrawal; CIWA at 1. The patient will be discharged home today and will follow-up with PCP with 7 days of discharge to further discussed alcohol abuse cessation. CM to connect patient with a assistant women's rowing coach. Recommendations for PCP follow-up: CBC Discussed Alcohol cessation with Naltrexone VS antabuse; and seizure prevention drugs Follow-up on CT imaging results Discussed with Dr. Hernandez Home Meds and New Rx's Prescriptions: New pantoprazole 40 mg tablet,delayed release (DR/EC) 40 mg PO BID Qty: 30 0RF sucralfate [Carafate] 1 gram tablet 1 g PO QACHS Qty: 120 0RF Continued sucralfate [Carafate] 1 gram tablet 1 g PO QACHS Qty: 120 2RF multivitamin Tablet 1 tab PO DAILY Discontinued pantoprazole [Protonix] 40 mg tablet,delayed release (DR/EC) 40 mg PO DAILY Qty: 90 0RF Discharge Instructions Referrals: JEN COBOS, INVESTIGATIVE WRITER [Primary Care Provider] - (Follow-up within 7 days of discharge ) Activity:: Activity as Tolerated Equipment/Supplies:: No Equipment Needed Diet:: Heart healthy Discharge Orders Discharge Orders: Discharge Order (Routine); Ordered 08/22/24 Ordered By: Ariana Greene DS: Summary Time Spent with Patient providing and/or coordinating discharge services: Greater than 30 minutes Status at Discharge Functional status at discharge: independent ambulation Overall status at discharge: patient is progressing back to baseline Mental Status: mental status grossly normal Speech and Movement: speech and movement normal Mood: congruent mood Affect: normal affect Quality:SDOH Health Related Social Needs: Health related social needs feeling lonely/isolated (Z60.8) Exam Narrative Exam Narrative: Constitutional The patient is in bed comfortable and cooperative without acute distress HENMT: Facial structures with normal appearance - flushed cheeks and nose Eyes: Well aligned, intact ROM Neck: Normal ROM, no meningeal signs Neuro:alert and oriented X 4 . No neurological focal deficit Resp: unlabored breathing, clear lung bilaterally Cardio: regular rhythm, S1, S2, no murmur GI: Abdomen is not distended, soft and non- tender ,bowel sounds are present Integumentary: No skin lesions or rash- rosacea appearance to face Extremities: strength 5/5 to bilateral lower and upper extremities Psych: RASS 0, congruent mood and normal affect. Psych Mental Status: mental status grossly normal Speech and Movement: speech and movement normal Mood: congruent mood Affect: normal affect DS: Data Vitals/I&O Vitals and I&O: Vital Signs Temperature 36.7 C 08/22/24 11:41 Temperature Source Temporal Artery Scan 08/22/24 11:41 Pulse 79 08/22/24 11:41 Pulse Rhythm Regular 08/21/24 14:56 Pulse 84 08/21/24 14:20 Respiratory Rate 16 08/22/24 11:41 Respiratory Effort Normal, Non-Labored 08/21/24 14:56 Respiratory Depth Normal 08/21/24 14:56 Respiratory Pattern Normal 08/21/24 14:56 Blood Pressure 130/85 08/22/24 11:41 Blood Pressure Mean 104 08/21/24 14:15 Pulse Oximetry 96 08/22/24 11:41 Oxygen Delivery Method Room Air 08/22/24 11:41 Oxygen Flow Rate 0 08/22/24 11:41 Pain Level 0 08/22/24 08:58 Intake & Output 08/21/24 08/22/24 08/22/24 23:59 11:59 23:59 Intake Total 1035 / 1035 1100 / 2200 1100 / 2200 Output Total 1075 / 1375 300 / 1375 Balance 1035 / 1035 25 / 825 800 / 825 Weight 91 kg Intake: IV 1035 / 1035 1100 / 2200 1100 / 2200 Output: Urine 1075 / 1375 300 / 1375 Other: Urine Color Yellow Yellow Light Beverly Anton [place] Urine Appearance Clear Cloudy Cloudy Urine Odor None Comment per pt pT voided independently. Stool Size Moderate Stool Characteristics Liquid Black Emesis Description Bright Red Blood Data Completed and Pending Labs on day of discharge: Labs from last 24 hours 08/22/24 08/22/24 08/22/24 13:05 09:00 08:48 WBC 6.16 5.27 RBC 2.26 L 2.26 L Hgb 9.0 L 8.9 L Hct 25.3 L 25.6 L MCV 112 H 113 H MCH 39.8 H 39.4 H MCHC 35.6 34.8 RDW 14.0 13.8 Plt Count 186 172 MPV 8.8 8.6 Immature Gran % 0.9 Neutrophils % 73.2 Lymphocytes % 13.9 Monocytes % 9.3 Eosinophils % 1.9 Basophils % 0.8 Nucleated RBC % 0.0 Absolute Neutrophils 3.86 Absolute Lymphocytes 0.73 L Absolute Monocytes 0.49 Absolute Eosinophils 0.10 Absolute Basophils 0.04 RBC Morphology See Below Macrocytosis 2+ Sodium 143 Cancelled Potassium 3.7 Cancelled Chloride 108 H Cancelled Carbon Dioxide 24.9 Cancelled Anion Gap 10.1 Cancelled BUN 24 H Cancelled Creatinine 0.8 Cancelled Est GFR (CKD-EPI 2020) 90.58 Cancelled Glucose 87 Cancelled Calcium 8.2 L Cancelled Total Bilirubin 0.7 Cancelled AST 57 H Cancelled ALT 49 Cancelled Alkaline Phosphatase 103 Cancelled Total Protein 5.8 L Cancelled Albumin 2.5 L Cancelled 08/22/24 08/21/24 08/21/24 08:36 20:43 15:06 WBC 6.49 8.97 RBC 2.36 L 2.71 L Hgb 9.2 L 10.5 L Hct 26.3 L 30.1 L MCV 111 H 111 H MCH 39.0 H 38.7 H MCHC 35.0 34.9 RDW 13.6 13.7 Plt Count 177 225 MPV 8.6 8.7 Immature Gran % 1.0 Neutrophils % 83.5 Lymphocytes % 7.9 Monocytes % 7.2 Eosinophils % 0.1 Basophils % 0.3 Nucleated RBC % 0.0 Absolute Neutrophils 7.48 H Absolute Lymphocytes 0.71 L Absolute Monocytes 0.65 Absolute Eosinophils 0.01 Absolute Basophils 0.03 RBC Morphology See Below Macrocytosis 2+ Sodium Cancelled Potassium Cancelled Chloride Cancelled Carbon Dioxide Cancelled Anion Gap Cancelled BUN Cancelled Creatinine Cancelled Est GFR (CKD-EPI 2020) Cancelled Glucose Cancelled Calcium Cancelled Total Bilirubin AST ALT Alkaline Phosphatase Total Protein Albumin 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) Screening for colon cancer (Acute) Vasovagal attack (Acute) Elevated LFTs (Chronic) Heart murmur previously undiagnosed (Acute) Ulcerative proctitis (Acute) Isolated episode in 2017 Acute upper GI bleed (Acute) Alcohol abuse, daily use (Chronic) Daily consumption of alcohol (Chronic) Acute blood loss anemia (Acute) Hypomagnesemia (Acute) Hyponatremia (Acute) Medical History Hypertension Hyperlipidemia Erectile dysfunction Inguinal hernia Male pattern baldness History of basal cell cancer History of skin cancer Keratosis, seborrheic Oral ulceration Abnormal auditory perception Cerumen impaction Neoplasm of unspecified behavior of bone, soft tissue, and skin Surgical History Hx of colonoscopy S/P total hip resurfacing right hip approx 2006 Social History Smoking/Tobacco Use Status: Never Smoking risk assessment performed?: Yes Alcohol Intake: current Alcohol Intake frequency: 3 or more drinks per day Alcohol type: wine Drug use: Current Sobriety Substance use type: does not use Housing: house Do you feel safe at home: Yes Do you feel safe in your relationship?: Yes Time Spent with Patient Time Spent with Patient: 70-84 minutes4 Time was spent: preparing to see the patient(eg.review tests), obtaining and/or reviewing separately otained hiistory, ordering medications,tests, procedures, referring, communicating with other health critical care registered nurse, indepentently interpreting results, counseling the patient and care coordination
[2024-08-22 15:42] VITALS: BP 134/87; PULSE 77; RESP 16; TEMP 36.7; O2SAT 94
--- NOTE | 2024-08-22 15:58 | PDOC.CMDIS ---
Date of service: 08/22/24 Time of Service: 15:58 LACE Index Scoring Tool Questions: Length of Stay (in days): 1 Was the patient admitted via the E.D.?: Yes Comorbidities: Liver or Renal Disease E.D. Visits: 2 Answers: Total Score: 11 Risk of Readmission: High Risk Care Management Discharge Plan Reason for Hospitalization: GI Bleed Discharge Plan: Alpesh will be discharged home with no new services. The excellence coach he met with today will call him each morning at 10 am to check in and offer support. Alpseh will follow up with his PCP, and plan of care and transport via private vehicle. Patient/Family Education Needs: Review discharge instructions, discuss Ask Me Three SDOH Health Related Social Needs: Health related social needs feeling lonely/isolated (Z60.8)
== END 2024-08-22 17:25 | disposition home or self-care (01) | DRG 378 ==
LOC: ER 13:19 → MS 14:42
PROVIDERS: Admitting Provider Family Medicine; Emergency Provider Emergency Medicine; PCP Nurse Practitioner Family; Responsible Provider Nurse Practitioner Acute Care; Visit Provider Family Medicine
DX: K92.0 Hematemesis (principal); D62 Acute posthemorrhagic anemia; N17.9 Acute kidney failure, unspecified; E87.1 Hypo-osmolality and hyponatremia; F10.139 Alcohol abuse with withdrawal, unspecified; K70.10 Alcoholic hepatitis without ascites; I10 Essential (primary) hypertension; E78.5 Hyperlipidemia, unspecified; K92.1 Melena; R01.1 Cardiac murmur, unspecified; E83.42 Hypomagnesemia; Z86.0101 Personal history of adenomatous and serrated colon polyps; Z79.899 Other long term (current) drug therapy
CPT/HCPCS: 00123; 36415; 80048; 80053; 83690; 85027; 86850; 86900; 86901; 96361; 96365; 96375; 99222; 99285; 80320; 83735; 85025; 85610; 99223; 99239; J0131; J0696; J2405; J2470

== ENCOUNTER 2024-08-27 17:24 | Outpatient (REF) | payer MEDICARE, SELFPAY ==
[2024-08-27 16:28] LABS: Abs Immature Grans 0.07 10^3/uL (0.0-0.06); Absolute Basophil Count 0.05 10^3/uL (0.0-0.2); Absolute Eosinophil Count 0.16 10^3/uL (0.0-0.7); Absolute Lymphocyte Count 1.34 10^3/uL (1.2-3.4); Absolute Monocyte Count 1.12 10^3/uL (0.1-0.8); Absolute Neutrophil Count 5.53 10^3/uL (1.2-6.7); Basophils % 0.6 %; Eosinophils % 1.9 %; HCT 27.4 % (40.0-50.0); HGB 9.6 g/dL (13.5-17.5); Immature Grans % 0.8 %; Lymphocytes % 16.2 %; MCH 40.7 pg (27.0-33.0); MCV 116 fL (80-95); MPV 9.4 fL (8.0-11.0); Monocytes % 13.5 %; Nucleated RBC 0.2 % (0.0-0.3); Platelet Count 280 10^3/uL (130-400); RBC 2.36 10^6/uL (4.36-5.78); RDW 14.3 % (11.8-14.1); RDW-SD 59.5 fL; WBC 8.27 10^3/uL (4.4-10.8)
[2024-08-27 16:56] LABS: Iron 39 ug/dL (65-175); Total Iron Binding Capacity 187 ug/dL (250-450); Transferrin Sat 21 % (20-55)
[2024-08-27 17:13] LABS: Ferritin 285 ng/mL (26-388); Folate 2.9 ng/mL (8.6-20.0); Vitamin B12 259 pg/mL (193-986)
== END 2024-08-27 17:25 | disposition home or self-care (01) ==
LOC: NCHCN 17:24
PROVIDERS: PCP Nurse Practitioner Family; Visit Provider Nurse Practitioner Family
DX: D64.9 Anemia, unspecified (principal)
CPT/HCPCS: 82607; 82728; 82746; 83540; 83550; 85025

== ENCOUNTER → 2024-10-30 10:24 | Outpatient (BNVA) | payer MEDICARE, SELFPAY | PROVIDERS: PCP Nurse Practitioner Family; Referring Provider Nurse Practitioner Family; Visit Provider Physical Therapy Assistant | DX: Z12.11 Encounter for screening for malignant neoplasm of colon (principal); K92.0 Hematemesis; Z86.0101 Personal history of adenomatous and serrated colon polyps | CPT/HCPCS: S0285 ==

== ENCOUNTER 2025-03-23 10:51 | Outpatient (REF) | payer MEDICARE, SELFPAY ==
[2025-03-23 15:53] LABS: HCT 42.7 % (40.0-50.0); HGB 14.7 g/dL (13.5-17.5); MCH 36.4 pg (27.0-33.0); MCHC 34.4 % (32.0-36.0); MPV 9.5 fL (8.0-11.0); Platelet Count 305 10^3/uL (130-400); RBC 4.04 10^6/uL (4.36-5.78); RDW 14.0 % (11.8-14.1); RDW-SD 55.0 fL; WBC 6.93 10^3/uL (4.4-10.8)
[2025-03-23 16:14] LABS: MCV 106 fL (80-95)
[2025-03-23 16:24] LABS: Iron 80 ug/dL (65-175)
[2025-03-23 16:34] LABS: ALT 74 U/L (16-63); AST 112 U/L (15-37); Albumin 3.1 g/dL (3.4-5.0); Alkaline Phosphatase 179 U/L (46-116); Anion Gap 11.3 mmol/L (3-11); BUN 6 mg/dL (7-18); Bilirubin, Total 0.6 mg/dL (0.2-1.0); CO2 26.7 mmol/L (21.0-32.0); Calcium 8.8 mg/dL (8.5-10.1); Chloride 101 mmol/L (98-107); Estimated GFR 93.73 (mL/min/1.73m2); Folate 3.7 ng/mL (8.6-20.0); Glucose 95 mg/dL (74-106); Magnesium 1.6 mg/dL (1.8-2.4); Potassium 4.6 mmol/L (3.5-5.1); Sodium 139 mmol/L (136-145); Total Protein 7.2 g/dL (6.4-8.2)
== END 2025-03-23 10:52 | disposition home or self-care (01) ==
LOC: NCHCN 10:51
PROVIDERS: PCP Nurse Practitioner Family; Visit Provider Nurse Practitioner Family
DX: R74.01 Elevation of levels of liver transaminase levels (principal); D52.0 Dietary folate deficiency anemia; E61.2 Magnesium deficiency; K21.9 Gastro-esophageal reflux disease without esophagitis; F10.20 Alcohol dependence, uncomplicated
CPT/HCPCS: 80053; 85027; 82746; 83540; 83735